=== PATIENT | female | born 1950 | race Caucasian/White ===

== ENCOUNTER 2018-03-05 05:59 | Day surgery (SDC) | payer MEDICARE, OTHER ==
[~2018-03-05 05:59] MED LIST: AMIT25TA20 PO; BUPR150T66 PO; CYCL-36 PO; DILTCD240 PO; ESTR1TAB PO; FIORTAB4 PO; HYDR-2768 PO; LORT5TAB PO; ORPH100T PO; PRED5PAK PO; XANA1TAB6 PO
[2018-03-05] MEDS ORDERED: MUPIROCIN 2% OINT 1 APPLIC/GM SYR NASAL SCH (07:00)
[2018-03-05] MEDS ORDERED: POVIDONE IODINE 5% (ANTISEPSIS KIT) 4 APPLICATIONS EACH NARE SCH (07:00)
[2018-03-05] MEDS ORDERED: NS 1000 ML IV SCH (07:00)
[2018-03-05] MEDS ORDERED: CHLORHEXIDINE GLUCONATE 2 % 1 PACK (2 CLOTHS) TOPICAL SCH (07:00)
--- NOTE | 2018-03-05 08:46 | MA ---
cc: Piyush Chan MD, Beth A MD DATE: 03/05/2018 INDICATIONS: Cerebrovascular accident. PROCEDURE PERFORMED: Loop recorder insertion. DESCRIPTION OF PROCEDURE: The patient was brought to DOC Unit in the postoperative state. After informed consent was obtained, a Power[employer] LINQ loop recorder was inserted subcutaneously in the left chest. The patient tolerated the procedure well without any apparent complication. Tachybrady pause and atrial fibrillation detection was enabled. The initial R-wave was 0.64 millivolts. The serial number was [id number]. Piyush Chan MD GABY/MERVAT , 08:36 AM , 08:44 AM
[2018-03-05] MEDS ORDERED: ceFAZolin 2 GM/DEX PREMIX 50 ML IV SCH (09:00)
[2018-03-05] MEDS ORDERED: ALPR.5 PO (09:04)
[2018-03-05] MEDS ORDERED: SPIR25TA PO (09:04)
[2018-03-05] MEDS ORDERED: HYDR-3516 PO (09:04)
[2018-03-05] MEDS ORDERED: CARD240C6 PO (09:04)
[2018-03-05] MEDS ORDERED: ESTR1TAB PO (09:04)
[2018-03-05] MEDS ORDERED: AMIT25TA9 PO (09:04)
[2018-03-05] MEDS ORDERED: BUPR75TA PO (09:04)
[2018-03-05] MEDS ORDERED: TIZA4CAP3 PO (09:04)
[2018-03-05] MEDS ORDERED: RANI150T PO (09:04)
[2018-03-05] MEDS ORDERED: VITA250C3 CHEW (09:04)
[2018-03-05] MEDS ORDERED: IMIT50TA PO (09:04)
[2018-03-05] MEDS ORDERED: CALC1TAB12 PO (09:04)
[2018-03-05] MEDS ORDERED: VOLT1GEL16 TOPICAL (09:04)
[2018-03-05] MEDS ORDERED: ASPI-516 CHEW (09:04)
[2018-03-05] MEDS ORDERED: ERGO2000 PO (09:04)
== END 2018-03-05 09:35 | disposition home or self-care (01) ==
LOC: HDOC 05:59 → HDIC 06:00 → HDOC 09:35
PROVIDERS: ATTEND Nuclear Medicine Nuclear Cardiology
DX: I63.9 Cerebral infarction, unspecified (principal)
CPT/HCPCS: 33282; C1764; J0690; J7030

== ENCOUNTER 2018-06-08 11:45 | Observation (INO) ==
[2018-06-08] MEDS ORDERED: Sod Chloride 0.9% Inj 1,000 ML IV.CONT SCH (13:00)
--- NOTE | 2018-06-08 13:07 | ED ---
HPI General Chief complaint: GI Bleed Stated complaint: GI bleed taking meds Time Seen by Provider: 06/08/18 12:43 Source: patient Mode of arrival: ambulatory Limitations: no limitations History of Present Illness HPI Narrative: 68 years old female complains black tarry stool. Patient has history of atrial fibrillation and TIA. Patient was seen by Dr. Flores, local salon customer experience specialist and put on Eliquis 5 days ago. Patient started noticed black tarry stool 2 days after that. Patient had Hemoccult study at local laboratory was positive for blood. Patient stopped taking Eliquis yesterday. Patient states that she still has persistent black tarry stool. Patient states that she has mild cramping pain left lower quadrant of the abdomen. Patient denies any pain radiation. Patient has history of GI bleeding in the past. Patient states that she has nausea and dizziness since yesterday. Patient also complained of aching right flank pain since yesterday. Patient has history of chronic kidney disease stage III. Patient also has history hypertension, hyperlipidemia. Patient is a non-smoker. Patient denies any dysuria frequency. Patient denies any vaginal discharge or bleeding. MD complaint: melena Onset (ago): day(s) Pain Consistency: intermittent Severity: mild Relieving factors: none Exacerbating factors: none Context: history of GI bleed and anticoagulant use Associated symptoms: abdominal pain, nausea and weakness Treatments Prior to Arrival: none Related Data Home Medications Medication Instructions Recorded Confirmed alprazolam [Xanax] 0.5 mg PO BID PRN 06/08/18 06/08/18 amitriptyline 25 mg PO DAILY 06/08/18 06/08/18 bupropion HCl 75 mg PO BID 06/08/18 06/08/18 diltiazem HCl 240 mg PO DAILY 06/08/18 06/08/18 estradiol 1 tab PO DAILY 06/08/18 06/08/18 hydrocodone-acetaminophen 1 tab PO Q8HR PRN 06/08/18 06/08/18 ranitidine HCl [Zantac] 150 mg PO DAILY 06/08/18 06/08/18 spironolactone 25 mg PO DAILY 06/08/18 06/08/18 sumatriptan succinate [Imitrex] 50 mg PO Q2-4H PRN 06/08/18 06/08/18 tizanidine 4 mg PO HS 06/08/18 06/08/18 Allergies Allergy/AdvReac Type Severity Reaction Status Date / Time azathioprine Allergy Severe Gastrointestinal Verified 06/08/18 12:07 Upset ceftriaxone Allergy Severe RASH/HEADAC Verified 06/08/18 12:07 HE/NAUSEA Gadolinium-Containing Allergy Severe Gastrointestinal Verified 06/08/18 12:07 Contrast Medi Upset hydroxychloroquine Allergy Severe Weakness Verified 06/08/18 12:07 methotrexate Allergy Severe Gastrointestinal Verified 06/08/18 12:07 Upset Latex, Natural Rubber Allergy Intermediate Itching Verified 06/08/18 12:07 Sulfa (Sulfonamide Allergy Intermediate Nausea/Vomi Verified 06/08/18 12:07 Antibiotics) ting Review of Systems Except as stated in HPI: all other systems reviewed are negative [facility] Medical History Medical History Atrial fibrillation (Acute) Chronic kidney disease, stage 3 (Acute) Hx of hysterectomy (Acute) Hx-TIA (transient ischemic attack) (Acute) Hypertension (Acute) Lupus (Acute) Family History Family History Mother History of diabetes mellitus History of hypertension Father History of aneurysm History of hypertension History of heart disease Social History Social History Substance History: No History of Abuse Second Hand Smoke Exposure: No Smoking Status: Never smoker How Often Do You Have a Drink Containing Alcohol: Never Recent Travel in [place] within the Last 8 Weeks: No Recent Out of Country Travel within the Last 8 Weeks: No Immunization History Tetanus Immunization: <5 Years Tetanus Immunization Year if Known: 2014 Hx Influenza Vaccine This Season: No Exam Narrative Exam Narrative: GENERAL: Well-nourished, well-developed patient. SKIN: Focused skin assessment warm/dry. HEAD: Normocephalic. EYES: No scleral icterus. No injection or drainage. NECK: Supple, trachea midline. No JVD or lymphadenopathy. CARDIOVASCULAR: Regular rate and rhythm without murmurs, gallops, or rubs. RESPIRATORY: Breath sounds equal bilaterally. No accessory muscle use. GASTROINTESTINAL: Abdomen soft, nondistended. Rectal exam deferred. Patient had Hemoccult positive at local laboratory. Patient has mild tenderness on palpation left lower quadrant of the abdomen. No rebound tenderness. No mass. MUSCULOSKELETAL: No cyanosis, or edema. BACK: Nontender without obvious deformity. No CVA tenderness. Neurologic exam normal. Course Hospital Course: Patient signed out to me, Dr. Cagle, by Dr. Salazar. Labs show no acute abnormalities, Hgb is 11.2. CT abd/pelvis shows no acute abnormalities. CT head shows no acute abnormalities. Initial Documented Vital Signs Temperature 98.4 F 06/08/18 11:58 Pulse Rate 112 H 06/08/18 11:58 Respiratory Rate 18 06/08/18 11:58 Blood Pressure 130/76 06/08/18 11:58 Pulse Oximetry 98 06/08/18 11:58 Last Documented Vital Signs Temperature 98.4 F 06/08/18 11:58 Pulse Rate 82 06/08/18 17:25 Respiratory Rate 16 06/08/18 17:25 Blood Pressure 125/85 06/08/18 17:25 Pulse Oximetry 96 06/08/18 17:56 Medical Decision Making MDM Narrative Medical decision making narrative: 68 years old female with black tarry stool. Patient was started on Eliquis for a history atrial fibrillation and TIA last week and stopped taking it 2 days ago. Patient has persistent black tarry stool. History GI bleed in the past. Normal saline solution 1 25 cc now. Protonix bolus and drip started. Patient to be placed in observation for further management. Differential Diagnosis Differential Diagnosis: Differential diagnosis including up with GI bleed versus lower GI bleed, diverticulosis, diverticulitis, AV malformation, hemorrhoidal bleed, side effect of anticoagulation. Lab Data Lab results reviewed: Yes I reviewed the patient's lab results. Result diagrams: 06/08/18 13:10 06/08/18 13:10 Lab Results 06/08/18 06/08/18 06/08/18 Range/Units 13:10 13:10 13:10 CBC w Diff Auto diff final WBC 8.8 (4.0-11.0) th/mm3 RBC 3.45 L (4.00-5.30) mil/mm3 Hgb 11.2 L (11.6-15.3) gm/dL Hct 31.6 L (35.0-46.0) % MCV 91.7 (80.0-100.0) fL MCH 32.4 (27.0-34.0) pg MCHC 35.4 (32.0-36.0) % RDW 14.2 (11.6-17.2) % Plt Count 393 (150-450) th/mm3 MPV 8.9 (7.0-11.0) fL Neut % (Auto) 68.2 (16.0-70.0) % Lymph % (Auto) 24.4 (9.0-44.0) % [place] % (Auto) 5.7 (0.0-8.0) % Eos % (Auto) 1.0 (0.0-4.0) % Baso % (Auto) 0.7 (0.0-2.0) % Neut # (Auto) 6.0 (1.8-7.7) th/mm3 Lymph # (Auto) 2.1 (1.0-4.8) th/mm3 [place] # (Auto) 0.5 (0.0-0.9) th/mm3 Eos # (Auto) 0.1 (0.0-0.4) th/mm3 Baso # (Auto) 0.1 (0.0-0.2) th/mm3 WBC Differential . Differential Comment . PT 9.8 (9.8-11.6) sec INR 1.0 Ratio APTT 24.3 (24.3-30.1) sec Sodium 138 (136-145) meq/L Potassium 4.6 (3.5-5.1) meq/L Chloride 108 H (98-107) meq/L Carbon Dioxide 22.9 (21.0-32.0) meq/L Anion Gap 7 (5-15) meq/L BUN 29 H (7-18) mg/dL Creatinine 1.80 H (0.50-1.00) mg/dL Estimated GFR 28 L (>89) mL/min Random Glucose 101 (74-106) mg/dL Calcium 9.0 (8.5-10.1) mg/dL Total Bilirubin 0.4 (0.2-1.0) mg/dL AST 12 L (15-37) U/L ALT 14 (10-53) U/L Alkaline Phosphatase 112 (45-117) U/L Total Protein 7.5 (6.4-8.2) g/dL Albumin 3.6 (3.4-5.0) g/dL Lipase 157 (73-393) U/L Ur Collection Type Urine Color (Yellw/Straw) Urine Clarity (Clear) Urine pH (5.0-8.5) Ur Specific [place] (1.002-1.035) Urine Protein (Neg-Trace) mg/dL Urine Glucose (UA) (Negative) mg/dL Urine Ketones (Negative) mg/dL Urine Occult Blood (Negative) Urine Nitrate (Negative) Urine Bilirubin (Negative) Urine Urobilinogen (Less than 2) mg/dL Ur Leukocyte Esterase (Negative) Urine WBC (0-5) /hpf Ur Squamous Epith Cells (0-5) /hpf Urine Bacteria (None) /hpf Micro UA Comment Urine Culture Comments Blood Type Blood Type Recheck Antibody Screen 06/08/18 06/08/18 Range/Units 13:10 13:30 CBC w Diff WBC (4.0-11.0) th/mm3 RBC (4.00-5.30) mil/mm3 Hgb (11.6-15.3) gm/dL Hct (35.0-46.0) % MCV (80.0-100.0) fL MCH (27.0-34.0) pg MCHC (32.0-36.0) % RDW (11.6-17.2) % Plt Count (150-450) th/mm3 MPV (7.0-11.0) fL Neut % (Auto) (16.0-70.0) % Lymph % (Auto) (9.0-44.0) % [place] % (Auto) (0.0-8.0) % Eos % (Auto) (0.0-4.0) % Baso % (Auto) (0.0-2.0) % Neut # (Auto) (1.8-7.7) th/mm3 Lymph # (Auto) (1.0-4.8) th/mm3 [place] # (Auto) (0.0-0.9) th/mm3 Eos # (Auto) (0.0-0.4) th/mm3 Baso # (Auto) (0.0-0.2) th/mm3 WBC Differential Differential Comment PT (9.8-11.6) sec INR Ratio APTT (24.3-30.1) sec Sodium (136-145) meq/L Potassium (3.5-5.1) meq/L Chloride (98-107) meq/L Carbon Dioxide (21.0-32.0) meq/L Anion Gap (5-15) meq/L BUN (7-18) mg/dL Creatinine (0.50-1.00) mg/dL Estimated GFR (>89) mL/min Random Glucose (74-106) mg/dL Calcium (8.5-10.1) mg/dL Total Bilirubin (0.2-1.0) mg/dL AST (15-37) U/L ALT (10-53) U/L Alkaline Phosphatase (45-117) U/L Total Protein (6.4-8.2) g/dL Albumin (3.4-5.0) g/dL Lipase (73-393) U/L Ur Collection Type Clean catch Urine Color Yellow (Yellw/Straw) Urine Clarity Slightly cloudy (Clear) Urine pH 5.5 (5.0-8.5) Ur Specific [place] 1.025 (1.002-1.035) Urine Protein Negative (Neg-Trace) mg/dL Urine Glucose (UA) Negative (Negative) mg/dL Urine Ketones Trace H (Negative) mg/dL Urine Occult Blood Negative (Negative) Urine Nitrate Negative (Negative) Urine Bilirubin Negative (Negative) Urine Urobilinogen 0.2 (Less than 2) mg/dL Ur Leukocyte Esterase Negative (Negative) Urine WBC 0-5 (0-5) /hpf Ur Squamous Epith Cells 6-10 H (0-5) /hpf Urine Bacteria Many H (None) /hpf Micro UA Comment Culture indicated Urine Culture Comments Culture indicated Blood Type O Positive Blood Type Recheck Required Antibody Screen Negative Imaging Data Radiologist's impression: Abdomen/Pelvis CT 06/08/18 12:53 CONCLUSION: 1. Nonspecific bowel gas pattern gaseous dilatation of portions of the colon which may represent an ileus. 2. Status post cholecystectomy. Head CT 06/08/18 13:22 CONCLUSION: 1. No acute hemorrhage or mass effect. 2. 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 Discharge Plan Discharge Disposition Patient Disposition: 30 Still Patient Discharge Condition Condition: Stable Discharge Details Diagnosis: Lower gastrointestinal hemorrhage Physicians Team ED Provider: Colt Salazar Primary Care Provider: Jase Dhillon Attending Provider: Corona Foreman Other Providers: Danny Rosado Discharge Interventions Interventions: ED Discharge Assessment Last Done: 06/08/18 17:27 Vital Signs Last Done: 06/08/18 16:03 Status ED Status: Left Department Discharge Information Discharge Date/Time: 06/08/18 17:45
[2018-06-08 13:20] LABS: Baso # (Auto) 0.1 th/mm3 (0.0-0.2); Baso % (Auto) 0.7 % (0.0-2.0); Eos # (Auto) 0.1 th/mm3 (0.0-0.4); Hematocrit 31.6 % (35.0-46.0); Hemoglobin 11.2 gm/dL (11.6-15.3); Lymph # (Auto) 2.1 th/mm3 (1.0-4.8); Lymph % (Auto) 24.4 % (9.0-44.0); Mean Corpuscular HGB Conc 35.4 % (32.0-36.0); Mean Corpuscular Hemoglobin 32.4 pg (27.0-34.0); Mean Corpuscular Volume 91.7 fL (80.0-100.0); Mean Platelet Volume 8.9 fL (7.0-11.0); Mono # (Auto) 0.5 th/mm3 (0.0-0.9); Mono % (Auto) 5.7 % (0.0-8.0); Neut % (Auto) 68.2 % (16.0-70.0); Platelet Count 393 th/mm3 (150-450); Red Blood Count 3.45 mil/mm3 (4.00-5.30); Red Cell Distribution Width 14.2 % (11.6-17.2); White Blood Count 8.8 th/mm3 (4.0-11.0)
[2018-06-08 13:25] LABS: Chloride 108 meq/L (98-107); Potassium 4.6 meq/L (3.5-5.1); Sodium 138 meq/L (136-145)
[2018-06-08 13:30] LABS: Albumin 3.6 g/dL (3.4-5.0); Anion Gap 7 meq/L (5-15); Blood Urea Nitrogen 29 mg/dL (7-18); Carbon Dioxide 22.9 meq/L (21.0-32.0); Glucose,Random 101 mg/dL (74-106); Lipase 157 U/L (73-393)
[2018-06-08 13:33] LABS: Alanine Aminotransferase 14 U/L (10-53); Aspartate Aminotransferase 12 U/L (15-37); Glomerular Filtration Rate 28 mL/min (>89)
[2018-06-08 13:34] LABS: Total Protein 7.5 g/dL (6.4-8.2)
[2018-06-08 13:36] LABS: Alkaline Phosphatase 112 U/L (45-117)
[2018-06-08 13:59] LABS: Activated Partial Thrombo Time 24.3 sec (24.3-30.1); Prothrombin Time 9.8 sec (9.8-11.6)
[2018-06-08 14:06] LABS: Bilirubin,Urine Negative (Negative); Clarity,Urine Slightly Cloudy (Clear); Color,Urine Yellow (Yellw/Straw); Glucose,Urine (UA) Negative (Negative); Leukocyte Esterase,Urine Negative (Negative); Nitrite,Urine Negative (Negative); PH,Urine 5.5 (5.0-8.5); Specific Gravity,Urine 1.025 (1.002-1.035); Urobilinogen,Urine 0.2 mg/dL (Less than 2)
[2018-06-08] MEDS: Pantoprazole Inj 80 MG in Sodium Chlor 0.9% Inj 100 ML IV.CONT SCH ×2 (14:10→22:21)
[2018-06-08 14:29] LABS: WBC,Urine 0-5 /hpf (0-5)
[2018-06-08 14:30] LABS: Bacteria,Urine Many /hpf
--- NOTE | 2018-06-08 15:27 | CT ---
EXAM DATE: 06/08/2018 3:24 PM EDT AGE/SEX: 68 years / Female INDICATIONS: Right sided headache. CLINICAL DATA: This is the patient's initial encounter. Patient reports that signs and symptoms have been present for 2 days and indicates a pain score of 5/10. MEDICAL/SURGICAL HISTORY: Transient ischemic attack. Appendectomy. Cholecystectomy. Hysterectomy. Hernia repair. RADIATION DOSE: 60.22 CTDI (mGy) COMPARISON: No prior exams available for comparison. TECHNIQUE: CT of the head without contrast. Using automated exposure control and adjustment of the mA and/or kV according to patient size, radiation dose was kept as low as reasonably achievable to ob tain optimal diagnostic quality images. DICOM format image data is available electronically for revi ew and comparison. FINDINGS: Cerebrum: The ventricles are normal for age. No evidence of midline shift, mass lesion, hemorrhage or acute infarction. There is a small old lacunar infarcts in the right basal ganglia. No extraaxial fluid collections are seen. Posterior Fossa: The cerebellum and brainstem are intact. The 4th ventricle is midline. The cerebe llopontine angle is unremarkable. Extracranial: The visualized portion of the orbits is intact. Skull: The calvaria is intact. No evidence of skull fracture. CONCLUSION: 1. No acute hemorrhage or mass effect. 2. 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 Electronically signed by: Juan Manuel Sloan MD 06/08/2018 3:25 PM EDT
--- NOTE | 2018-06-08 15:30 | CT ---
EXAM DATE: 06/08/2018 3:24 PM EDT AGE/SEX: 68 years / Female INDICATIONS: Blood in stool. CLINICAL DATA: This is the patient's initial encounter. Patient reports that signs and symptoms have been present for 1 week and indicates a pain score of 0/10. MEDICAL/SURGICAL HISTORY: Transient ischemic attack. Appendectomy. Cholecystectomy. Hysterect yamel. Hernia repair. RADIATION DOSE: 20.61 CTDI (mGy) COMPARISON: No prior exams available for comparison. TECHNIQUE: Multiple contiguous axial images were obtained through the abdomen. Images were obtained using multiple row detector helical technique. Using automated exposure control and adjustment of the mA and/or kV according to patient size, radiation dose was kept as low as reasonably achievable to o btain optimal diagnostic quality images. DICOM format image data is available electronically for rev iew and comparison. FINDINGS: Lower Lungs: The visualized lower lungs are clear. Liver: The liver has a homogeneous density without space-occupying lesion. There is no dilation of th e biliary tree. Status post cholecystectomy. Spleen: Homogeneous density without enlargement. Pancreas: Unremarkable without mass or calcification. Kidneys: Normal in size and shape. No evidence of mass or hydronephrosis. Adrenal Glands: Unremarkable. Aorta: The aorta and proximal iliac vessels are grossly unremarkable without aneurysmal dilation. Bowel/Mesentery: No oral contrast was given limiting the sensitivity of the exam. There is mild gaseo us dilatation of portions of the colon. Small bowel is nondilated. There is no inflammatory change or free air. Abdominal Wall: Intact. Retroperitoneum: No evidence of adenopathy in the retrocrural, para-aortic, or deep pelvic regions. Bladder: Contours are smooth. Reproductive Organs: No abnormal masses or calcifications seen. Inguinal: The inguinal region is unremarkable without evidence of adenopathy. Bony Structures: Osteopenia, degenerative change and mild scoliosis are present. CONCLUSION: 1. Nonspecific bowel gas pattern gaseous dilatation of portions of the colon which may represent an ileus. 2. Status post cholecystectomy. Electronically signed by: Juan Manuel Sloan MD 06/08/2018 3:29 PM EDT
[2018-06-08] MEDS ORDERED: ALPRAZolam 0.5 MG Tablet PO PRN (17:48)
--- NOTE | 2018-06-08 17:50 | P.HP ---
History of Present Illness Primary Care Physician: Jase Dhillon DO Chief Complaint: Heme positive stool History of Present Illness: 68-year-old female with known history of hypertension, lupus, atrial fibrillation, TIA, chronic kidney disease who presented the hospital at the request of her customer care representative because of heme positive stool. Patient recently was diagnosed with atrial fibrillation by loop recorder. She was started on Eliquis for anticoagulation, however she started having darker stools after she started taking the Eliquis. Patient stopped the Eliquis yesterday and she continued to have dark colored stools. She had Hemoccult performed in outpatient setting and it was positive. Her customer care representative Dr. Flores recommend the patient come to the hospital to get evaluation performed and endoscopies. Patient is at significant high risk for recurrent TIAs, atrial fibrillation. Needs to be on anticoagulation. Patient will require urgent endoscopies in order to restart anticoagulation. Patient denies any symptoms. She is without any weakness, shortness of breath, dyspnea. She indicates that she had a colonoscopy done in 2008 which was normal in [place]. Patient denies any NSAID use. - Diagnosis (1) Heme positive stool Review of Systems All other systems reviewed negative except as stated in HPI Gastrointestinal: Reports black, tarry stools PMFSH - History History Provided By: Patient - Medical History Medical History: Medical History (Last Updated 06/08/18 @ 17:45 by DENNIS [place]) Atrial fibrillation Chronic kidney disease, stage 3 Hx of hysterectomy Hx-TIA (transient ischemic attack) Hypertension Lupus - Surgical History Surgical History: Surgical History (Last Reviewed 06/08/18 @ 17:45 by DENNIS [place]) History of arthroplasty of left shoulder History of bilateral knee replacement Hx of appendectomy Hx of cholecystectomy Hx of hernia repair - Family History Family History: Family History (Last Updated 06/08/18 @ 17:46 by DENNIS [place]) Mother History of diabetes mellitus History of hypertension Father History of aneurysm History of hypertension History of heart disease - Tobacco History Second Hand Smoke Exposure: No Smoking Status: Never smoker - Alcohol History How Often Do You Have a Drink Containing Alcohol: Never - Substance Use History Substance History: No History of Abuse - Travel History Recent Travel in the [place] Within the Last 8 Weeks: No Recent Travel Out of the Country Within the Last 8 Weeks: No - Immunization History Tetanus Immunization: <5 Years Tetanus Immunization Year if Known: 2014 Hx Influenza Vaccine This Season: No Medications and Allergies Active Medications: Active Medications Pantoprazole Sodium 80 mg/ (Sodium Chloride) 100 mls @ 10 mls/hr IV.CONT CONT MICHELLE Last Admin: 06/08/18 14:10 Dose: 10 mls/hr Sodium Chloride (Ns Inj) 1,000 mls @ 100 mls/hr IV.CONT .Q10H MICHELLE Polyethylene Glycol/Electrolytes (Colyte Liq) 4,000 ml PO ONCE ONE Stop: 06/08/18 17:39 Sodium Chloride (Ns Flush) 2 ml IV.FLUSH BID MICHELLE Sodium Chloride (Ns Flush) 2 ml IV.FLUSH PRN PRN PRN Reason: FLUSH AFTER USING IV ACCESS Allergies Allergy/AdvReac Type Severity Reaction Status Date / Time azathioprine Allergy Severe Gastrointestinal Verified 06/08/18 12:07 Upset ceftriaxone Allergy Severe RASH/HEADAC Verified 06/08/18 12:07 HE/NAUSEA Gadolinium-Containing Allergy Severe Gastrointestinal Verified 06/08/18 12:07 Contrast Medi Upset hydroxychloroquine Allergy Severe Weakness Verified 06/08/18 12:07 methotrexate Allergy Severe Gastrointestinal Verified 06/08/18 12:07 Upset Latex, Natural Rubber Allergy Intermediate Itching Verified 06/08/18 12:07 Sulfa (Sulfonamide Allergy Intermediate Nausea/Vomi Verified 06/08/18 12:07 Antibiotics) ting Home Medications Medication Instructions Recorded Confirmed Type alprazolam [Xanax] 0.5 mg PO BID PRN 06/08/18 06/08/18 History amitriptyline 25 mg PO DAILY 06/08/18 06/08/18 History bupropion HCl 75 mg PO BID 06/08/18 06/08/18 History diltiazem HCl 240 mg PO DAILY 06/08/18 06/08/18 History estradiol 1 tab PO DAILY 06/08/18 06/08/18 History hydrocodone-acetaminophen 1 tab PO Q8HR PRN 06/08/18 06/08/18 History ranitidine HCl [Zantac] 150 mg PO DAILY 06/08/18 06/08/18 History spironolactone 25 mg PO DAILY 06/08/18 06/08/18 History sumatriptan succinate [Imitrex] 50 mg PO Q2-4H PRN 06/08/18 06/08/18 History tizanidine 4 mg PO HS 06/08/18 06/08/18 History Exam Vital signs: Vital Signs 06/08/18 11:58 06/08/18 13:15 06/08/18 13:36 Temperature 98.4 F Pulse Rate 112 H 113 H Respiratory Rate 18 Blood Pressure 130/76 Pulse Oximetry 98 96 06/08/18 16:03 06/08/18 17:25 Temperature Pulse Rate 80 82 Respiratory Rate 16 16 Blood Pressure 152/99 H 125/85 Pulse Oximetry 95 96 Intake & Output 06/07/18 06/08/18 06/08/18 18:59 06:59 18:59 Weight 84.5 kg Narrative: GENERAL: Well-developed, well-nourished, in no acute distress. alert and orientated HEENT: Head is normocephalic without any lesions or masses noted. Facial features are symmetric. Eyes: Pupils equal round reactive to light. Extraocular muscles are intact. Conjunctivae were clear. Oropharyngeal: Pharynx without any erythema edema. Tongue is midline without deviation. Buccal mucosa is moist without any masses or lesions NECK: Supple without any masses. Trachea midline no deviation. No JVD, no bruits are appreciated CARDIAC: Regular rhythm, regular rate. S1/S2 are heard. No murmurs gallops or rubs. LUNGS: Clear to auscultation bilaterally. No wheeze, rhonchi or rales. No use of accessory muscles on inspiration or expiration. ABDOMEN: Soft, nontender. Nondistended. Bowel sounds heard in all 4 quadrants. No organomegaly or masses. Negative rebound, negative guarding EXTREMITIES: No edema, pulses are equal bilaterally. No cyanosis or clubbing NEUROLOGY: Mood and affect appear appropriate. Cranial nerves II through XII grossly intact. Muscle strength 5/5 in upper and lower extremities bilaterally. Deep tendon reflexes are 2+ in upper and lower extremities bilaterally. Results - Labs CBC & Chem 7: 06/08/18 13:10 06/08/18 13:10 Labs: Laboratory Results - last 24 hr 06/08/18 06/08/18 06/08/18 13:10 13:10 13:10 CBC w Diff Auto diff final WBC 8.8 RBC 3.45 L Hgb 11.2 L Hct 31.6 L MCV 91.7 MCH 32.4 MCHC 35.4 RDW 14.2 Plt Count 393 MPV 8.9 Neut % (Auto) 68.2 Lymph % (Auto) 24.4 [place] % (Auto) 5.7 Eos % (Auto) 1.0 Baso % (Auto) 0.7 Neut # (Auto) 6.0 Lymph # (Auto) 2.1 [place] # (Auto) 0.5 Eos # (Auto) 0.1 Baso # (Auto) 0.1 WBC Differential . Differential Comment . PT 9.8 INR 1.0 APTT 24.3 Sodium 138 Potassium 4.6 Chloride 108 H Carbon Dioxide 22.9 Anion Gap 7 BUN 29 H Creatinine 1.80 H Estimated GFR 28 L Random Glucose 101 Calcium 9.0 Total Bilirubin 0.4 AST 12 L ALT 14 Alkaline Phosphatase 112 Total Protein 7.5 Albumin 3.6 Lipase 157 Ur Collection Type Urine Color Urine Clarity Urine pH Ur Specific [place] Urine Protein Urine Glucose (UA) Urine Ketones Urine Occult Blood Urine Nitrate Urine Bilirubin Urine Urobilinogen Ur Leukocyte Esterase Urine WBC Ur Squamous Epith Cells Urine Bacteria Micro UA Comment Urine Culture Comments Blood Type Blood Type Recheck Antibody Screen 06/08/18 06/08/18 13:10 13:30 CBC w Diff WBC RBC Hgb Hct MCV MCH MCHC RDW Plt Count MPV Neut % (Auto) Lymph % (Auto) [place] % (Auto) Eos % (Auto) Baso % (Auto) Neut # (Auto) Lymph # (Auto) [place] # (Auto) Eos # (Auto) Baso # (Auto) WBC Differential Differential Comment PT INR APTT Sodium Potassium Chloride Carbon Dioxide Anion Gap BUN Creatinine Estimated GFR Random Glucose Calcium Total Bilirubin AST ALT Alkaline Phosphatase Total Protein Albumin Lipase Ur Collection Type Clean catch Urine Color Yellow Urine Clarity Slightly cloudy Urine pH 5.5 Ur Specific [place] 1.025 Urine Protein Negative Urine Glucose (UA) Negative Urine Ketones Trace H Urine Occult Blood Negative Urine Nitrate Negative Urine Bilirubin Negative Urine Urobilinogen 0.2 Ur Leukocyte Esterase Negative Urine WBC 0-5 Ur Squamous Epith Cells 6-10 H Urine Bacteria Many H Micro UA Comment Culture indicated Urine Culture Comments Culture indicated Blood Type O Positive Blood Type Recheck Required Antibody Screen Negative - Imaging Impressions Abdomen/Pelvis CT 06/08/18 12:53 CONCLUSION: 1. Nonspecific bowel gas pattern gaseous dilatation of portions of the colon which may represent an ileus. 2. Status post cholecystectomy. Head CT 06/08/18 13:22 CONCLUSION: 1. No acute hemorrhage or mass effect. 2. 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 Caprini VTE Risk Assessment Caprini VTE Risk Assessment: Moderate/High Risk (score >= 2) Caprini Risk Assessment Model: Point Value = 1 Point Value = 2 Point Value = 3 Point Value = 5 Age 41-60 Minor surgery BMI > 25 kg/m2 Swollen legs Varicose veins or History of unexplained or recurrent spontaneous Oral contraceptives or hormone replacement Sepsis (< 1 month) Serious lung disease, including pneumonia (< 1 month) Abnormal pulmonary function Acute myocardial infarction Congestive heart failure (< 1 month) History of inflammatory bowel disease Medical patient at bed rest Age 61-74 Arthroscopic surgery Major open surgery (> 45 min) Laparoscopic surgery (> 45 min) Malignancy Confined to bed (> 72 hours) Immobilizing plaster cast Central venous access Age >= 75 History of VTE Family history of VTE Factor V Leiden Prothrombin [id number] Lupus anticoagulant Anticardiolipin antibodies Elevated serum homocysteine Heparin-induced thrombocytopenia Other congenital or acquired thrombophilia Stroke (< 1 month) Elective arthroplasty Hip, pelvis, or leg fracture Acute spinal cord injury (< 1 month) Prophylaxis Regimen: Total Risk Factor Score Risk Level Prophylaxis Regimen 0-1 Low Early ambulation 2 Moderate Order ONE of the following: *Sequential Compression Device (SCD) *Heparin 5000 units SQ BID 3-4 Higher Order ONE of the following medications: *Heparin 5000 units SQ TID *Enoxaparin/Lovenox 40 mg SQ daily (WT < 150 kg, CrCl > 30 mL/min) *Enoxaparin/Lovenox 30 mg SQ daily (WT < 150 kg, CrCl > 10-29 mL/min) *Enoxaparin/Lovenox 30 mg SQ BID (WT < 150 kg, CrCl > 30 mL/min) AND/OR *Sequential Compression Device (SCD) 5 or more Highest Order ONE of the following medications: *Heparin 5000 units SQ TID (Preferred with Epidurals) *Enoxaparin/Lovenox 40 mg SQ daily (WT < 150 kg, CrCl > 30 mL/min) *Enoxaparin/Lovenox 30 mg SQ daily (WT < 150 kg, CrCl > 10-29 mL/min) *Enoxaparin/Lovenox 30 mg SQ BID (WT < 150 kg, CrCl > 30 mL/min) AND *Sequential Compression Device (SCD) Assessment and Plan - Assessment (1) Heme positive stool Code(s): R19.5 - Other fecal abnormalities Status: Acute - Plan Heme positive stool -Patient needs anticoagulation is a high risk due to age fibrillation, recurrent TIAs. Eliquis was stopped yesterday -GI was consulted for further recommendations, plan was discussed with them -Clear liquid diet at this time, n.p.o. after midnight -Patient was started on Protonix IV in the emergency department -[facility] for colonoscopy prep -Continue monitor hemoglobin, transfuse if hemoglobin below 8.0 Atrial fibrillation, history of TIAs -Patient will require anticoagulation but high risk due to heme positive stool -Await pain endoscopy and GI clearance before starting further anticoagulation -Other home meds will be continued Lupus, anxiety -Home medications have been continued DVT prevention -Sequential compression devices, avoid chemical prophylaxis secondary to heme positive stool.
[2018-06-08] MEDS ORDERED: PEG 3350/E-Lyte Soln 4000 ML Bottle PO ONE (18:00)
[2018-06-08] MEDS: Sod Chloride 0.9% Inj 1,000 ML IV.CONT SCH (18:09)
[2018-06-08 19:17] LABS: Hematocrit 36.3 % (35.0-46.0); Hemoglobin 11.7 gm/dL (11.6-15.3)
--- NOTE | 2018-06-08 19:40 | P.CONGI ---
History of Present Illness Consult date: 06/08/18 Consult reason: Guaiac positive stools, anemia Chief complaint: GI bleed History of Present Illness: Patient was recently diagnosed with atrial fibrillation and was started on Eliquis shortly after starting Eliquis she began to see black stools and then she alerted her primary care physician who sent for guaiac stools and this came back positive and so the patient was advised to come into the emergency room for further evaluation and treatment the patient held her Eliquis yesterday The patient is currently comfortable in bed she denies any NSAID use although she did use aspirin for short period of time prior to starting Eliquis she also reports having had history of GI bleeds back in the 80s with no clear source identified Review of Systems Constitutional: Denies weight loss Eyes: Denies blurry vision Ears, Nose, Mouth, and Throat: Denies difficulty swallowing, Denies hoarseness, Denies sore throat Cardiovascular: Reports irregular heart rhythm, Denies chest pain, Denies lightheadedness, Denies shortness of breath Respiratory: Denies shortness of breath Gastrointestinal: Reports black, tarry stools, Denies abdominal pain, Denies difficulty swallowing Neurologic: Denies abnormal hearing, Denies dizziness, Denies fainting Psychiatric: Denies change in appetite Endocrine: Denies excessive sweating PMFSH - History History Provided By: Patient - Medical History Medical History: Medical History (Last Updated 06/08/18 @ 17:45 by DENNIS [place]) Atrial fibrillation Chronic kidney disease, stage 3 Hx of hysterectomy Hx-TIA (transient ischemic attack) Hypertension Lupus - Surgical History Surgical History: Surgical History (Last Reviewed 06/08/18 @ 17:45 by DENNIS [place]) History of arthroplasty of left shoulder History of bilateral knee replacement Hx of appendectomy Hx of cholecystectomy Hx of hernia repair - Family History Family History: Family History (Last Updated 06/08/18 @ 17:46 by DENNIS [place]) Mother History of diabetes mellitus History of hypertension Father History of aneurysm History of hypertension History of heart disease - Tobacco History Second Hand Smoke Exposure: No Smoking Status: Never smoker - Alcohol History How Often Do You Have a Drink Containing Alcohol: Never - Substance Use History Substance History: No History of Abuse - Travel History Recent Travel in the [place] Within the Last 8 Weeks: No Recent Travel Out of the Country Within the Last 8 Weeks: No - Immunization History Tetanus Immunization: <5 Years Tetanus Immunization Year if Known: 2014 Hx Influenza Vaccine This Season: No Medications and Allergies Active Medications: Active Medications Hydrocodone Bitart/Acetaminophen (Silver 5/325) 1 tab PO Q8HR PRN PRN Reason: PAIN SCALE 6 TO 10 Alprazolam (Xanax) 0.5 mg PO BID PRN PRN Reason: Anxiety Amitriptyline HCl (Elavil) 25 mg PO DAILY [facility] Bupropion HCl (Wellbutrin) 75 mg PO BID MICHELLE Diltiazem HCl (Cardizem Cd 24hr) 240 mg PO DAILY MICHELLE Pantoprazole Sodium 80 mg/ (Sodium Chloride) 100 mls @ 10 mls/hr IV.CONT CONT MICHELLE Last Admin: 06/08/18 14:10 Dose: 10 mls/hr Sodium Chloride (Ns Inj) 1,000 mls @ 100 mls/hr IV.CONT .Q10H MICHELLE Last Admin: 06/08/18 18:09 Dose: 100 mls/hr Sodium Chloride (Ns Flush) 2 ml IV.FLUSH BID MICHELLE Sodium Chloride (Ns Flush) 2 ml IV.FLUSH PRN PRN PRN Reason: FLUSH AFTER USING IV ACCESS Spironolactone (Aldactone) 25 mg PO DAILY MICHELLE Sumatriptan Succinate (Imitrex) 50 mg PO Q2H PRN PRN Reason: HEADACHE Tizanidine HCl (Zanaflex) 4 mg PO HS [facility] Allergies Allergy/AdvReac Type Severity Reaction Status Date / Time azathioprine Allergy Severe Gastrointestinal Verified 06/08/18 12:07 Upset ceftriaxone Allergy Severe RASH/HEADAC Verified 06/08/18 12:07 HE/NAUSEA Gadolinium-Containing Allergy Severe Gastrointestinal Verified 06/08/18 12:07 Contrast Medi Upset hydroxychloroquine Allergy Severe Weakness Verified 06/08/18 12:07 methotrexate Allergy Severe Gastrointestinal Verified 06/08/18 12:07 Upset Latex, Natural Rubber Allergy Intermediate Itching Verified 06/08/18 12:07 Sulfa (Sulfonamide Allergy Intermediate Nausea/Vomi Verified 06/08/18 12:07 Antibiotics) ting Home Medications Medication Instructions Recorded Confirmed Type alprazolam [Xanax] 0.5 mg PO BID PRN 06/08/18 06/08/18 History amitriptyline 25 mg PO DAILY 06/08/18 06/08/18 History bupropion HCl 75 mg PO BID 06/08/18 06/08/18 History diltiazem HCl 240 mg PO DAILY 06/08/18 06/08/18 History estradiol 1 tab PO DAILY 06/08/18 06/08/18 History hydrocodone-acetaminophen 1 tab PO Q8HR PRN 06/08/18 06/08/18 History ranitidine HCl [Zantac] 150 mg PO DAILY 06/08/18 06/08/18 History spironolactone 25 mg PO DAILY 06/08/18 06/08/18 History sumatriptan succinate [Imitrex] 50 mg PO Q2-4H PRN 06/08/18 06/08/18 History tizanidine 4 mg PO HS 06/08/18 06/08/18 History Exam Vital signs: Vital Signs 06/08/18 11:58 06/08/18 13:15 06/08/18 13:36 Temperature 98.4 F Pulse Rate 112 H 113 H Respiratory Rate 18 Blood Pressure 130/76 Pulse Oximetry 98 96 06/08/18 16:03 06/08/18 17:25 06/08/18 17:50 Temperature Pulse Rate 80 82 Respiratory Rate 16 16 Blood Pressure 152/99 H 125/85 Pulse Oximetry 95 96 96 06/08/18 17:56 06/08/18 18:34 Temperature 96.7 F L Pulse Rate 77 Respiratory Rate 16 Blood Pressure 138/98 H Pulse Oximetry 96 97 Intake & Output 06/08/18 06/08/18 06/09/18 06:59 18:59 06:59 Weight 84.5 kg - Constitutional no acute distress - Routine HEENT Exam Head: Present: normocephalic, atraumatic Eye: Present: EOMI ENT: Present: mucous membranes moist - Routine Neck Exam Present: supple - Routine Chest/Breast/Axilla Exam Chest wall: Absent: tenderness - Routine Respiratory Exam Present: CTA bilaterally - Routine Cardiovascular Exam Present: irregularly irregular - Routine Abdominal Exam Present: soft, normoactive bowel sounds - Routine Extremities Exam Absent: cyanosis, clubbing, edema - Routine Skin Exam Present: dry, warm - Routine Neurological Exam Present: alert, oriented X3 Results - Labs CBC & Chem 7: 06/08/18 13:10 06/08/18 13:10 Labs: Laboratory Results - last 24 hr 06/08/18 06/08/18 06/08/18 13:10 13:10 13:10 CBC w Diff Auto diff final WBC 8.8 RBC 3.45 L Hgb 11.2 L Hct 31.6 L MCV 91.7 MCH 32.4 MCHC 35.4 RDW 14.2 Plt Count 393 MPV 8.9 Neut % (Auto) 68.2 Lymph % (Auto) 24.4 [place] % (Auto) 5.7 Eos % (Auto) 1.0 Baso % (Auto) 0.7 Neut # (Auto) 6.0 Lymph # (Auto) 2.1 [place] # (Auto) 0.5 Eos # (Auto) 0.1 Baso # (Auto) 0.1 WBC Differential . Differential Comment . PT 9.8 INR 1.0 APTT 24.3 Sodium 138 Potassium 4.6 Chloride 108 H Carbon Dioxide 22.9 Anion Gap 7 BUN 29 H Creatinine 1.80 H Estimated GFR 28 L Random Glucose 101 Calcium 9.0 Total Bilirubin 0.4 AST 12 L ALT 14 Alkaline Phosphatase 112 Total Protein 7.5 Albumin 3.6 Lipase 157 Ur Collection Type Urine Color Urine Clarity Urine pH Ur Specific [place] Urine Protein Urine Glucose (UA) Urine Ketones Urine Occult Blood Urine Nitrate Urine Bilirubin Urine Urobilinogen Ur Leukocyte Esterase Urine WBC Ur Squamous Epith Cells Urine Bacteria Micro UA Comment Urine Culture Comments Blood Type Blood Type Recheck Antibody Screen 06/08/18 06/08/18 13:10 13:30 CBC w Diff WBC RBC Hgb Hct MCV MCH MCHC RDW Plt Count MPV Neut % (Auto) Lymph % (Auto) [place] % (Auto) Eos % (Auto) Baso % (Auto) Neut # (Auto) Lymph # (Auto) [place] # (Auto) Eos # (Auto) Baso # (Auto) WBC Differential Differential Comment PT INR APTT Sodium Potassium Chloride Carbon Dioxide Anion Gap BUN Creatinine Estimated GFR Random Glucose Calcium Total Bilirubin AST ALT Alkaline Phosphatase Total Protein Albumin Lipase Ur Collection Type Clean catch Urine Color Yellow Urine Clarity Slightly cloudy Urine pH 5.5 Ur Specific [place] 1.025 Urine Protein Negative Urine Glucose (UA) Negative Urine Ketones Trace H Urine Occult Blood Negative Urine Nitrate Negative Urine Bilirubin Negative Urine Urobilinogen 0.2 Ur Leukocyte Esterase Negative Urine WBC 0-5 Ur Squamous Epith Cells 6-10 H Urine Bacteria Many H Micro UA Comment Culture indicated Urine Culture Comments Culture indicated Blood Type O Positive Blood Type Recheck Required Antibody Screen Negative - Imaging Impressions Abdomen/Pelvis CT 06/08/18 12:53 CONCLUSION: 1. Nonspecific bowel gas pattern gaseous dilatation of portions of the colon which may represent an ileus. 2. Status post cholecystectomy. Head CT 06/08/18 13:22 CONCLUSION: 1. No acute hemorrhage or mass effect. 2. 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 Assessment and Plan - Plan Guaiac positive stools, anemia, melena, atrial fibrillation We will plan on an EGD with colonoscopy tomorrow Agree with current supportive care Monitor labs and transfuse if needed
[2018-06-08] MEDS ORDERED: Amitriptyline 25 MG Tablet PO SCH (21:45)
[2018-06-08] MEDS: buPROPion 75 MG Tablet PO SCH (22:22)
[2018-06-09 01:42] LABS: Hematocrit 32.5 % (35.0-46.0); Hemoglobin 10.5 gm/dL (11.6-15.3)
[2018-06-09 06:12] LABS: Baso # (Auto) 0.1 th/mm3 (0.0-0.2); Baso % (Auto) 0.6 % (0.0-2.0); Eos # (Auto) 0.1 th/mm3 (0.0-0.4); Eos % (Auto) 0.9 % (0.0-4.0); Hematocrit 31.2 % (35.0-46.0); Hemoglobin 10.1 gm/dL (11.6-15.3); Lymph # (Auto) 2.3 th/mm3 (1.0-4.8); Lymph % (Auto) 23.1 % (9.0-44.0); Mean Corpuscular HGB Conc 32.2 % (32.0-36.0); Mean Corpuscular Volume 92.9 fL (80.0-100.0); Mono # (Auto) 0.6 th/mm3 (0.0-0.9); Mono % (Auto) 5.7 % (0.0-8.0); Neut % (Auto) 69.7 % (16.0-70.0); Platelet Count 397 th/mm3 (150-450); Red Blood Count 3.36 mil/mm3 (4.00-5.30); White Blood Count 10.1 th/mm3 (4.0-11.0)
[2018-06-09 06:22] LABS: Chloride 108 meq/L (98-107); Potassium 4.2 meq/L (3.5-5.1); Sodium 141 meq/L (136-145)
[2018-06-09 06:26] LABS: Albumin 3.5 g/dL (3.4-5.0); Anion Gap 9 meq/L (5-15); Calcium 8.6 mg/dL (8.5-10.1); Carbon Dioxide 24.4 meq/L (21.0-32.0); Glucose,Random 93 mg/dL (74-106)
[2018-06-09 06:27] LABS: Blood Urea Nitrogen 24 mg/dL (7-18)
[2018-06-09 06:29] LABS: Alanine Aminotransferase 14 U/L (10-53); Aspartate Aminotransferase 13 U/L (15-37)
[2018-06-09 06:30] LABS: Glomerular Filtration Rate 32 mL/min (>89)
[2018-06-09 06:31] LABS: Total Protein 6.9 g/dL (6.4-8.2)
[2018-06-09 06:33] LABS: Alkaline Phosphatase 108 U/L (45-117)
--- NOTE | 2018-06-09 08:33 | P.PN ---
Subjective Interval history: 68-year-old female seen in follow-up today for heme positive stool. Patient has undergone prep, plans for EGD/colonoscopy today. Discussed with patient tentative treatment plan. Patient denies any new complaints. Patient does not feel as if she cleaned out well enough for colonoscopy. Patient vital signs are stable. Patient remains afebrile. Physical Exam Vital signs: Vital Signs 06/08/18 11:58 06/08/18 13:15 06/08/18 13:36 Temperature 98.4 F Pulse Rate 112 H 113 H Respiratory Rate 18 Blood Pressure 130/76 Pulse Oximetry 98 96 06/08/18 16:03 06/08/18 17:25 06/08/18 17:50 Temperature Pulse Rate 80 82 Respiratory Rate 16 16 Blood Pressure 152/99 H 125/85 Pulse Oximetry 95 96 96 06/08/18 17:56 06/08/18 18:34 06/08/18 20:00 Temperature 96.7 F L 96.9 F L Pulse Rate 77 87 Respiratory Rate 16 16 Blood Pressure 138/98 H 157/95 H Pulse Oximetry 96 97 96 06/09/18 00:00 Temperature 98.3 F Pulse Rate 87 Respiratory Rate 16 Blood Pressure 142/83 H Pulse Oximetry 94 L Intake & Output 06/08/18 06/09/18 06/09/18 18:59 06:59 18:59 Intake Total 400 / 400 Balance 400 / 400 Weight 84.5 kg Intake: IV 100 / 100 Protonix Inj 80 MG In NS Inj 100 / 100 100 ML @ 10 mls/hr IV.CONT CONT MICHELLE Rx#:[id number] Oral 300 / 300 Other: # Voids 3 Date of Last Bowel Movement 06/08/18 # Bowel Movements 3 Narrative: GENERAL: Well-developed, well-nourished, in no acute distress. alert and orientated HEENT: Head is normocephalic without any lesions or masses noted. Facial features are symmetric. Eyes: Extraocular muscles are intact. Conjunctivae were clear. NECK: Supple without any masses. Trachea midline no deviation. No JVD, CARDIAC: Regular rhythm, regular rate. S1/S2 are heard. No murmurs gallops or rubs. LUNGS: Clear to auscultation bilaterally. No wheeze, rhonchi or rales. No use of accessory muscles on inspiration or expiration. ABDOMEN: Soft, nontender. Nondistended. Bowel sounds heard in all 4 quadrants. No organomegaly or masses. Negative rebound, negative guarding EXTREMITIES: No edema, pulses are equal bilaterally. No cyanosis or clubbing NEUROLOGY: Mood and affect appear appropriate. Cranial nerves II through XII grossly intact. Moving all extremities, speech clear Results - Labs CBC & Chem 7: 06/09/18 05:34 06/09/18 05:34 Laboratory Results - last 24 hr 06/08/18 06/08/18 06/08/18 13:10 13:10 13:10 CBC w Diff Auto diff final WBC 8.8 RBC 3.45 L Hgb 11.2 L Hct 31.6 L MCV 91.7 MCH 32.4 MCHC 35.4 RDW 14.2 Plt Count 393 MPV 8.9 Neut % (Auto) 68.2 Lymph % (Auto) 24.4 Posey % (Auto) 5.7 Eos % (Auto) 1.0 Baso % (Auto) 0.7 Neut # (Auto) 6.0 Lymph # (Auto) 2.1 Posey # (Auto) 0.5 Eos # (Auto) 0.1 Baso # (Auto) 0.1 WBC Differential . Differential Comment . PT 9.8 INR 1.0 APTT 24.3 Sodium 138 Potassium 4.6 Chloride 108 H Carbon Dioxide 22.9 Anion Gap 7 BUN 29 H Creatinine 1.80 H Estimated GFR 28 L Random Glucose 101 Calcium 9.0 Total Bilirubin 0.4 AST 12 L ALT 14 Alkaline Phosphatase 112 Total Protein 7.5 Albumin 3.6 Lipase 157 Ur Collection Type Urine Color Urine Clarity Urine pH Ur Specific [place] Urine Protein Urine Glucose (UA) Urine Ketones Urine Occult Blood Urine Nitrate Urine Bilirubin Urine Urobilinogen Ur Leukocyte Esterase Urine WBC Ur Squamous Epith Cells Urine Bacteria Micro UA Comment Urine Culture Comments Blood Type Blood Type Recheck Antibody Screen 06/08/18 06/08/18 06/08/18 13:10 13:30 19:10 CBC w Diff WBC RBC Hgb 11.7 Hct 36.3 MCV MCH MCHC RDW Plt Count MPV Neut % (Auto) Lymph % (Auto) Posey % (Auto) Eos % (Auto) Baso % (Auto) Neut # (Auto) Lymph # (Auto) Posey # (Auto) Eos # (Auto) Baso # (Auto) WBC Differential Differential Comment PT INR APTT Sodium Potassium Chloride Carbon Dioxide Anion Gap BUN Creatinine Estimated GFR Random Glucose Calcium Total Bilirubin AST ALT Alkaline Phosphatase Total Protein Albumin Lipase Ur Collection Type Clean catch Urine Color Yellow Urine Clarity Slightly cloudy Urine pH 5.5 Ur Specific [place] 1.025 Urine Protein Negative Urine Glucose (UA) Negative Urine Ketones Trace H Urine Occult Blood Negative Urine Nitrate Negative Urine Bilirubin Negative Urine Urobilinogen 0.2 Ur Leukocyte Esterase Negative Urine WBC 0-5 Ur Squamous Epith Cells 6-10 H Urine Bacteria Many H Micro UA Comment Culture indicated Urine Culture Comments Culture indicated Blood Type O Positive Blood Type Recheck Required Antibody Screen Negative 06/09/18 06/09/18 06/09/18 01:00 05:34 05:34 CBC w Diff Auto diff final WBC 10.1 RBC 3.36 L Hgb 10.5 L 10.1 L Hct 32.5 L 31.2 L MCV 92.9 MCH 30.0 MCHC 32.2 RDW 13.0 Plt Count 397 MPV 9.0 Neut % (Auto) 69.7 Lymph % (Auto) 23.1 Posey % (Auto) 5.7 Eos % (Auto) 0.9 Baso % (Auto) 0.6 Neut # (Auto) 7.0 Lymph # (Auto) 2.3 Posey # (Auto) 0.6 Eos # (Auto) 0.1 Baso # (Auto) 0.1 WBC Differential . Differential Comment . PT INR APTT Sodium 141 Potassium 4.2 Chloride 108 H Carbon Dioxide 24.4 Anion Gap 9 BUN 24 H Creatinine 1.60 H Estimated GFR 32 L Random Glucose 93 Calcium 8.6 Total Bilirubin 0.8 AST 13 L ALT 14 Alkaline Phosphatase 108 Total Protein 6.9 D Albumin 3.5 Lipase Ur Collection Type Urine Color Urine Clarity Urine pH Ur Specific [place] Urine Protein Urine Glucose (UA) Urine Ketones Urine Occult Blood Urine Nitrate Urine Bilirubin Urine Urobilinogen Ur Leukocyte Esterase Urine WBC Ur Squamous Epith Cells Urine Bacteria Micro UA Comment Urine Culture Comments Blood Type Blood Type Recheck Antibody Screen - Imaging Impressions Abdomen/Pelvis CT 06/08/18 12:53 CONCLUSION: 1. Nonspecific bowel gas pattern gaseous dilatation of portions of the colon which may represent an ileus. 2. Status post cholecystectomy. Head CT 06/08/18 13:22 CONCLUSION: 1. No acute hemorrhage or mass effect. 2. 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 - Procedures 06/09/18: EGD/colonoscopy: 1. There was LA Class A esophagitis noted; biopsy was performed 2. There was gastritis in the gastric antrum; biopsy was performed 3. Normal duodenal mucosa 4. Retroflexed views revealed no abnormalities 1. Moderate diverticulosis was noted in the sigmoid colon 2. 5 x 10cm near circumferential abnormal mucosa was found in the sigmoid colon; The mucosa was congested, edematous and erythematous; multiple biopsies were performed using cold forceps 3. Retroflexed views revealed internal hemorrhoids 4. Retroflexed views revealed medium internal hemorrhoids 5. Revealed external hemorrhoids Assessment and Plan - Assessment (1) Heme positive stool Code(s): R19.5 - Other fecal abnormalities Status: Acute - Plan Heme positive stool -Patient needs anticoagulation is a high risk due to age fibrillation, recurrent TIAs. Eliquis was stopped 2 days ago -GI was consulted for further recommendations, plan was discussed with them -Advance diet. -Continue Protonix IV -EGD and colonoscopy were performed today which I discussed with Dr Perez, who indicated that there was a small area what looks like possible ischemic colitis, biopsies were taken. He indicates that it was a poor prep but currently she can be resumed on anticoagulation considering her history. He states that she would probably need to have follow-up endoscopy done in the next couple of months. Patient should follow-up in his office in the next week. -Continue monitor hemoglobin, transfuse if hemoglobin below 8.0 Atrial fibrillation, history of TIAs -Patient will require anticoagulation but high risk due to heme positive stool -Panendoscopy was done in GI cleared the patient to start anticoagulation -Other home meds will be continued -I discussed with patient's nurse practical Dr. Flores, she requested that a hypercoagulability panel be performed prior to administration of anticoagulation. -Recommending Xarelto for anticoagulation Lupus, anxiety -Home medications have been continued DVT prevention -Sequential compression devices, avoid chemical prophylaxis secondary to heme positive stool. Discharge Planning: Discharge home in stable condition Activity: Ad ale. Diet: Healthy heart diet Medication per medication reconciliation Follow-up with primary medical doctor in 1 week
[2018-06-09] MEDS ORDERED: Spironolactone 25 MG Tablet PO SCH (09:00)
[2018-06-09] MEDS ORDERED: Amitriptyline 25 MG Tablet PO SCH (09:00)
[2018-06-09] MEDS ORDERED: dilTIAZem CD 240 MG Capsule PO SCH (09:00)
[2018-06-09] MEDS: buPROPion 75 MG Tablet PO SCH (09:27)
[2018-06-09] MEDS: Sod Chloride 0.9% Inj 1,000 ML IV.CONT SCH (09:30)
[2018-06-09] MEDS ORDERED: Sodium Chlor 0.9% Inj 500 ML IV.SIG SCH (12:00)
[2018-06-09] MEDS ORDERED: Metoprolol Tartrate 25 MG Tablet PO SCH (12:00)
[2018-06-09] MEDS ORDERED: Chlorhexidine Gluconate 2% 1 Pack (2 Cloths) TOPICAL SCH (12:00)
--- NOTE | 2018-06-09 12:54 | GIPROC ---
[facility] [address] [place] [address], [id number] COLONOSCOPY PROCEDURE REPORT EXAM DATE: 06/09/2018 PATIENT NAME: Cheryl Jay MR #: [id number] BIRTHDATE: 1950 ENDOSCOPIST: Maisha Perez MD ORDER #: [id number] GLOBAL MARKETING MANAGER: Sanam Barbosa STATUS: inpatient INDICATIONS: The patient is a 68 yr old female here for a colonoscopy due to melena and iron deficiency anemia PROCEDURE PERFORMED: Colonoscopy with biopsy MEDICATIONS: None and Per Anesthesia. PREP QUALITY: The Pound Bowel Prep Score was Right colon 1, Mid colon 1, and Left colon 1. Total = 3. ESTIMATED BLOOD LOSS: None CONSENT: The patient understands the risks and benefits of the procedure and understands that these risks include, but are not limited to: sedation, allergic reaction, infection, perforation and/or bleeding. Alternative means of evaluation and treatment include, among others: physical exam, x-rays, and/or surgical intervention. The patient elects to proceed with this endoscopic procedure. medical equipment was checked for proper function. Hand hygiene and appropriate measures for infection prevention was taken. After the risks, benefits and alternatives of the procedure were thoroughly explained, Informed consent was verified, confirmed and timeout was successfully executed by the treatment team. A digital exam revealed external hemorrhoids The Pentax EC-3490Li endoscope was introduced through the anus and advanced to the cecum, which was identified by both the appendix and ileocecal valve. The instrument was then slowly withdrawn as the colon was fully examined. COLON FINDINGS: Moderate diverticulosis was noted in the sigmoid colon. No bleeding was noted from the diverticulosis. A 5 x 10cm near circumferential patch of abnormal mucosa was found in the sigmoid colon. The mucosa was congested, edematous and erythematous. This was likely consistent with ischemic colitis disease. Multiple biopsies were performed using cold forceps. Retroflexed views revealed internal hemorrhoids and Retroflexed views revealed medium internal hemorrhoids The scope was then completely withdrawn from the patient and the procedure terminated. PROCEDURE WITHDRAWAL TIME:10minutes ADVERSE EVENTS: There were no complications. IMPRESSIONS: 1. Moderate diverticulosis was noted in the sigmoid colon 2. 5 x 10cm near circumferential abnormal mucosa was found in the sigmoid colon; The mucosa was congested, edematous and erythematous; multiple biopsies were performed using cold forceps 3. Retroflexed views revealed internal hemorrhoids 4. Retroflexed views revealed medium internal hemorrhoids 5. Revealed external hemorrhoids RECOMMENDATIONS: 1. Await biopsy results. Biopsy results will not be ready for 7-10 days. If you don't hear from us in two weeks, call our office for results. 2. Continue surveillance 3. Benefiber 2 tsp daily 4. Yearly hemoccult 5. No seeds, nuts and popcorn in diet RECALL: Return 1 month Colonoscopy, pending biopsy results Maisha Perez MD eSigned: Maisha Perez MD 06/09/2018 12:54 PM cc: PATIENT NAME: Cheryl Jay MR#: [id number]
--- NOTE | 2018-06-09 12:57 | GIPROC ---
[facility] [address] [place] [address], [id number] EGD PROCEDURE REPORT EXAM DATE: 06/09/2018 PATIENT NAME: Cheryl Jay MR #: [id number] BIRTHDATE: 1950 ATTENDING: Maisha Perez MD ORDER #: [id number] MEDICAL SCIENTIFIC LIAISON: Sanam Barbosa STATUS: inpatient INDICATIONS: The patient is a 68 yr old female here for an EGD due to iron deficiency anemia and acute post hemorrhagic anemia PROCEDURE PERFORMED: EGD w/ biopsy MEDICATIONS: None and Per Anesthesia. TOPICAL ANESTHETIC: CONSENT: The patient understands the risks and benefits of the procedure and understands that these risks include, but are not limited to: sedation, allergic reaction, infection, perforation and/or bleeding. Alternative means of evaluation and treatment include, among others: physical exam, x-rays, and/or surgical intervention. The patient elects to proceed with this endoscopic procedure. medical equipment was checked for proper function. Hand hygiene and appropriate measures for infection prevention was taken. After the risks, benefits and alternatives of the procedure were thoroughly explained, Informed consent was verified, confirmed and timeout was successfully executed by the treatment team. The patient was anesthetized with topical anesthesia and the EC-3490Li (Pedi C) endoscope was introduced through the mouth and advanced to the second portion of the duodenum. Retroflexed views revealed no abnormalities The gastroscope was then slowly withdrawn and removed. ESOPHAGUS: There was LA Class A esophagitis noted. A biopsy was performed using cold forceps. Sample sent for histology. STOMACH: There was moderate gastritis in the gastric antrum. A biopsy was performed using cold forceps. Sample sent for histology. DUODENUM: The duodenal mucosa appeared normal. ADVERSE EVENTS: There were no complications. IMPRESSIONS: 1. There was LA Class A esophagitis noted; biopsy was performed 2. There was gastritis in the gastric antrum; biopsy was performed 3. Normal duodenal mucosa 4. Retroflexed views revealed no abnormalities RECOMMENDATIONS: 1. Await biopsy results. Biopsy results will not be ready for 7-10 days. If you don't hear from us in two weeks, call our office for biopsy results. 2. Anti-reflux regimen 3. Continue PPI 4. Avoid NSAIDS PATIENT CONDITION: stable DISPOSITION: Inpatient REPEAT EXAM: Return 1 year EGD pending biopsy results Maisha Perez MD eSigned: Maisha Perez MD 06/09/2018 12:57 PM cc: PATIENT NAME: Cheryl Jay MR#: [id number]
[2018-06-09] MEDS: Pantoprazole Inj 80 MG in Sodium Chlor 0.9% Inj 100 ML IV.CONT SCH (13:57)
[2018-06-09 16:06] VITALS: BP 139/93; PULSE 88; RESP 20; TEMP 97.6; O2SAT 95
[2018-06-09] MEDS ORDERED: Rivaroxaban 20 MG Tablet PO SCH (17:00)
--- NOTE | 2018-06-09 18:30 | ECG ---
Date Performed: 06/09/2018 Time Performed: 08:10:17 PTAGE: 68 years EKG: Sinus rhythm BORDERLINE LEFT AXIS DEVIATION NONSPECIFIC T-WAVE ABNORMALITY BORDERLINE ECG NO PREVIOUS TRACING DOCTOR: Zenia Manzo Interpretating Date/Time 06/09/2018 18:29:41
[2018-06-12 23:50] LABS: Homocysteine (Cardiovascular) 14.2 umol/L (<10.4)
[2018-06-13 03:50] LABS: Factor VIII (8) Activity 128 (50-180)
[2018-06-14 17:51] LABS: Dil Russell Viper Venom Conf ( NEGATIVE (NEGATIVE); Dil Russell Viper Venom Time M ND (CORRECTED); Lupus Anticoagulant PTT Screen 36 seconds (< OR = 40)
[2018-06-15 03:50] LABS: Activated Protein C Resistance 4.8 ratio (> OR = 2.1)
[2018-06-15 20:15] LABS: Factor V Leiden Mutation Negative (Negative); Protein C Antigen 137 % (70-150)
== END 2018-06-09 18:31 | disposition home or self-care (01) ==
LOC: PHEDA 11:45 → PHED 11:45 → PH3 11:45 → PHEDA 17:45 → PH3 17:47
PROVIDERS: ADMIT Family Medicine; ATTEND Family Medicine
PROC: PANENDO (2018-06-09 12:23)

== ENCOUNTER 2018-07-09 11:14 | Inpatient (IN) ==
[2018-07-09] MEDS ORDERED: Sodium Chlor 0.9% Inj 500 ML IV.SIG ONE (12:00)
[2018-07-09] MEDS ORDERED: Phenylephrine/NS 1000 MCG/10ML Syringe IV.PUSH ONE (12:00)
[2018-07-09] MEDS ORDERED: Lidocaine PF 1% Inj 5 ML Syringe INFILTRATN ONE (12:00)
[2018-07-09] MEDS ORDERED: Metoprolol Tartrate 25 MG Tablet PO SCH (12:15)
[2018-07-09] MEDS ORDERED: Chlorhexidine Gluconate 2% 1 Pack (2 Cloths) TOPICAL SCH (12:15)
[2018-07-09] MEDS ORDERED: Dextrose 5%/NaCl 0.9% Inj 1,000 ML IV.SIG SCH (12:15)
[2018-07-09] MEDS ORDERED: Heparin - SQ 10,000 UNITS/ML Vial SQ SCH (12:15)
[2018-07-09] MEDS ORDERED: Sodium Chlor 0.9% Inj 500 ML IV.SIG SCH (13:00)
[2018-07-09 14:11] LABS: Bacteria,Urine Rare /hpf; Bilirubin,Urine Negative (Negative); Clarity,Urine Hazy (Clear); Color,Urine Yellow (Yellw/Straw); Glucose,Urine (UA) Negative (Negative); Hyaline Casts,Urine 16 /lpf (0-3); Leukocyte Esterase,Urine Trace (Negative); Mucus,Urine Few /lpf (Occasional); Nitrite,Urine Negative (Negative); Specific Gravity,Urine 1.019 (1.002-1.035); Squamous Epithelial Cell,Urine 3 /hpf (0-5)
[2018-07-09 14:32] LABS: Activated Partial Thrombo Time 26.6 sec (24.3-30.1); Prothrombin Time 10.3 sec (9.8-11.6)
[2018-07-09] MEDS ORDERED: Sugammadex Inj 200 MG/2 ML Vial IV.PUSH ONE (15:20)
[2018-07-09] MEDS ORDERED: Hypromellose 0.3% Opth Gel 10 GM Bottle ONE (15:21)
[2018-07-09] MEDS ORDERED: ceFAZolin 2 GM/NS 100 ML IV; Q8H IV.SIG ONE ×2 (16:00)
[2018-07-09] MEDS ORDERED: Ciprofloxacin 400 MG/200 ML 400 MG/200 ML PIGGYBACK IV.SIG ONE (16:33)
--- NOTE | 2018-07-09 17:37 | P.OP ---
- Preoperative Diagnosis (1) Colon adenocarcinoma - Postoperative Diagnosis (1) Colon adenocarcinoma Date of procedure: 07/09/18 Procedure: Urologic surgery procedures: Cystoscopy and placement of bilateral ureteral catheters. Anesthesia: GETA Surgeon: Conner Gardner MD Estimated blood loss (mL): 0 Pathology: none sent Operation and Findings: Indication for urologic surgery procedures: Consulted intraoperatively to pass bilateral ureteral catheters to aid in visualization of this patient's ureters during her colorectal procedure. Urologic procedures in detail: Concurrent with the colorectal surgeon Dr. Ruelas, I proceeded with cystoscopy and placement of bilateral ureteral catheters as follows. Initially cystoscopic evaluation was performed utilizing the rigid cystoscope with the 22 [place]ar[place] sheath and 30 lens. Both right and left ureteral orifices were in correct anatomic position draining clear yellow urine. There were no bladder mucosal lesions, calculi or diverticula formation noted. I then proceeded to pass a sensor 0.035 wire up the patient's left ureter until a small amount of resistance was met. A 6 [place]ar[place]uan open-ended ureteral catheter was then advanced over this wire 25 cm in a cephalad direction. With the catheter in place the wire was withdrawn and reintroduced through secondary site by the cystoscope. In similar fashion the contralateral side was accomplished. With both catheters in place the cystoscope and wire were withdrawn and a silicone 16 [place]ar[place]uan 10 cc [place] catheter was placed. The ureteral catheters were then anchored to the [place] via a connector and all 3 catheters placed to gravity drainage. This completes the urologic surgery portion of combined procedures on this patient.
[2018-07-09] MEDS ORDERED: fentaNYL Citrate Inj 100 MCG/2 ML Ampul ONE ×2 (18:45→22:59)
[2018-07-09] MEDS ORDERED: Albumin Human 5% Inj 500 ML IV.SIG ONE (21:33)
[2018-07-09 23:33] LABS: Baso % (Auto) 0.2 % (0.0-2.0); Hematocrit 25.8 % (35.0-46.0); Hemoglobin 8.5 gm/dL (11.6-15.3); Lymph # (Auto) 0.4 th/mm3 (1.0-4.8); Lymph % (Auto) 2.1 % (9.0-44.0); Mean Corpuscular HGB Conc 32.8 % (32.0-36.0); Mean Corpuscular Hemoglobin 28.8 pg (27.0-34.0); Mean Corpuscular Volume 87.8 fL (80.0-100.0); Mean Platelet Volume 8.8 fL (7.0-11.0); Mono # (Auto) 0.4 th/mm3 (0.0-0.9); Mono % (Auto) 2.4 % (0.0-8.0); Neut # (Auto) 16.9 th/mm3 (1.8-7.7); Neut % (Auto) 95.3 % (16.0-70.0); Platelet Count 318 th/mm3 (150-450); Red Blood Count 2.94 mil/mm3 (4.00-5.30); Red Cell Distribution Width 14.1 % (11.6-17.2); White Blood Count 17.8 th/mm3 (4.0-11.0)
[2018-07-09] MEDS ORDERED: *Meperidine Inj 25 MG/ML Vial PERIprocedural Use ONLY ONE (23:40)
[2018-07-09 23:44] LABS: Calcium 7.8 mg/dL (8.5-10.1); Potassium 3.8 meq/L (3.5-5.1)
--- NOTE | 2018-07-09 23:44 | MP ---
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 PROCEDURE PERFORMED: 1. Laparoscopic/robotic extensive lysis of adhesions. 2. Robotic takedown of the splenic flexure. 3. Robotic descending colectomy. 4. Robotic small bowel resection. SURGEON: Sandhya Ruelas MD COMPUTER ENGINEERING TECHNOLOGIST Scott. ANESTHESIA: General per ET tube. ESTIMATED BLOOD LOSS: 100 mL. OPERATIVE INDICATIONS: The patient is a 68-year-old female who was recently noted to have a cancer, apparently in the sigmoid colon. Of note, flexible sigmoidoscopy done yesterday by myself with tattooing of the area, and I did question that it was likely higher than the sigmoid colon. OPERATIVE COURSE: The patient was brought to the operating room, and placed in the supine position. After induction of general anesthesia, the patient was placed in Zach stirrups and all bony prominences were carefully padded. The skin of the anterior abdominal wall, as well as the perineal area, were then prepped and draped in the usual sterile fashion. Dr. Gardner then came in and performed cystoscopy, with placement of bilateral ureteral catheters; please see his operative note for details. Due to her previous mesh, I elected to place her assist port in first. This was 2 fingerbreadths below the right costal margin, equal distance between where I planned the camera and the #1 port. A 5-trocar was placed at this location under direct vision. CO2 insufflation was then undertaken. A brief survey was undertaken and the patient was immediately noted to have adhesions throughout, with really just a tiny area in which to work. Luckily, I was able to place her right lower quadrant #1 port, a 10/12, under direct vision using the laparoscope. Then, I tediously and slowly dissected free adhesions, bowel to bowel, small bowel to colon, and colon and small bowel to the anterior abdominal wall. It took about an hour and a half to 2 hours of very slow tedious work, using a combination of mostly sharp, but a little bit of electrocautery, dissection to eventually dissect free the small bowel. There were some areas of small bowel that were noted to be moderately dilated as well. Eventually, we had mobility of all the small bowel and I was able to get a better look. There was small bowel again adherent over the descending colon and sigmoid colon, which was quite redundant. I eventually was able to clear these until I had visualization of the sigmoid colon and descending colon. After evaluating the bowel, I was able to locate the area of tattooing right at the splenic flexure and then I was able to visualize the evidence of the tumor in the proximal descending colon. With this, we elected to change our approach and proceed with a descending colectomy. The assist port was changed out for a da Julia port to allow for docking over the left shoulder and 2 additional ports were placed, one in the left midclavicular line, just below the umbilicus, and the other just above the umbilicus in the left anterior axillary line. The patient was then turned with her head slightly up and the robot was docked. The lateral peritoneal attachments of the descending colon were dissected free up to but not around the splenic flexure. The omentum was then pulled away from the transverse colon and dissection was continued in this plane until the lesser sac was entered. This dissection continued up and to the left and met our previous dissection. This dissection continued posteriorly, freeing the transverse colon mesentery and descending colon mesentery from their peritoneal attachments and from Gerota's fascia. Dissection continued down to the level of the distal descending colon until I felt that we had a nice length of bowel for an extracorporeal anastomosis. A window was then made at the base of the mesentery and using a Harmonic scalpel, dissection was continued over to the left colic vessels. These were divided using the Harmonic scalpel, opening up a window for the mesentery for eventual resection. At this point, we were just getting ready to undock the robot and proceed with our extracorporeal anastomosis, when it became more and more evident that one particular loop of the small bowel was getting quite massively dilated for no discernible reason. With this, I elected to proceed with a small midline incision around the umbilicus to see if we could evaluate the small bowel better and try to figure out what was going on with this piece of small bowel. The robot was then undocked. A 15 cm midline incision was made around the umbilicus. Using electrocautery, dissection was carried down to the fascia of the anterior abdominal wall. The fascia and the mesh were then divided. Immediately noted was this very massively dilated loop of small bowel. It was gently pulled up and out through the incision and multiple adhesions were again dissected free from other loops around it and overlying it and I was eventually able to visualize it distally. At the very end of the loop, there was an area of what appeared to be a partial chronic obstruction with some thickening and narrowing of the bowel distally. Proximally, the bowel was very, very thin and very dilated and ultimately I felt that it would be more prudent to remove this small loop of small bowel. The remainder of the small bowel was run to the extent possible. There were some loops that were adherent posteriorly that I could not visualize. All of the small bowel that we did visualize appeared healthy and not injured. A site was chosen for proximal division of the small bowel, where the bowel was healthier-appearing. It was opened at this level and a blue load of the DAREK-75 was placed across the bowel before it was closed and fired. A site was chosen for distal division of the bowel, just past the area of partial obstruction. The mesentery was cleared and a reload of the DAREK stapler was placed across the bowel at this level. The intervening mesentery was then serially divided and ligated using 0 Vicryl ties. The antimesenteric corners of the staple line were then removed. One limb of the gastrointestinal stapler was placed down each limb of the bowel. This was closed along the antimesenteric border, fired, and removed, thus creating an enteroenterotomy. The resulting enterotomy was closed transversely using a TX 60 stapling device. Two simple stay sutures were placed at the distal end of the anastomosis using a 3-0 Vicryl. The anastomosis was palpated and found to be widely patent and the bowel was reduced easily into the peritoneal cavity. The loop of descending colon with the tumor in place was then gently prolapsed out through the incision. A site was chosen for proximal and distal division of the bowel, where the mesentery was cleared. A load of the DAREK-75 blue load stapler was placed across the bowel both proximally and distally. This bowel was then divided and the intervening mesentery was serially divided and ligating with 0 Vicryl ties. The specimen was taken to a back table, where it was later opened and the cancer was confirmed. The antimesenteric corners of the staple line were then removed. One limb of the gastrointestinal stapler was placed down each limb of the bowel. This was closed along the antimesenteric border, fired, and removed, thus creating an enteroenterotomy. The resulting enterotomy was closed transversely using a TX 60 stapling device. A simple stay suture was placed at the distal end of the anastomosis using 3-0 Vicryl. The anastomosis was palpated and found to be widely patent and was returned to the peritoneal cavity. The peritoneal cavity was then copiously irrigated with warm normal saline. A NORMA was placed through the left lower quadrant incision into the pelvis. The fascia at the umbilical port was closed in interrupted fashion using 3-0 Vicryl and the midline incision was closed in a running fashion using #1 PDS. The wound was copiously irrigated with warm normal saline and the skin was closed in a running subcuticular fashion, using 3-0 Vicryl. The drain site was then secured using 3-0 nylon and the skin at the trocar sites were closed in interrupted subcuticular fashion with 3-0 Vicryl. The ureteral catheters were then removed. A sterile dressing was then applied. All sponge, needle and instrument counts were correct and the patient was returned to the Postanesthesia Care Unit in stable condition. MD VICENTE Baird/francisco , 10:38 PM , 10:53 PM KATHY
[2018-07-09] MEDS: Dextrose 5%/NaCl 0.9% Inj 1,000 ML IV.CONT SCH (23:51)
[2018-07-10] MEDS ORDERED: Naloxone Inj 0.4 MG/ML Vial IV.PUSH PRN (01:43)
[2018-07-10] MEDS: Heparin - SQ 10,000 UNITS/ML Vial SQ SCH ×2 (08:55→21:07)
[2018-07-10] MEDS: buPROPion 75 MG Tablet PO SCH ×2 (08:57→21:17)
[2018-07-10] MEDS: dilTIAZem CD 240 MG Capsule PO SCH (08:58)
[2018-07-10] MEDS ORDERED: Amitriptyline 25 MG Tablet PO SCH (09:00)
[2018-07-10] MEDS ORDERED: Famotidine PF Inj 20 MG/2 ML Vial IV.PUSH SCH (09:00)
[2018-07-10] MEDS: Dextrose 5%/NaCl 0.9% Inj 1,000 ML IV.CONT SCH ×3 (09:20→21:04)
[2018-07-10] MEDS: Morphine Inj 30 MG/30 ML PCA.VIAL PCA PRN (11:34)
--- NOTE | 2018-07-10 11:35 | P.PN ---
Subjective Interval history: POD#1 s/p robotic VIRIDIANA, SBR, Desc colectomy comfortable, only pain is in shoulders (chronic) Physical Exam Vital signs: Vital Signs 07/09/18 12:31 07/09/18 22:50 07/09/18 23:00 Temperature 99.0 F 97.6 F 97.6 F Pulse Rate 92 H 70 69 Respiratory Rate 16 14 14 Blood Pressure 136/97 H 132/77 131/72 Pulse Oximetry 98 99 99 07/09/18 23:15 07/09/18 23:30 07/09/18 23:45 Temperature 97.6 F 97.6 F 97.6 F Pulse Rate 68 68 74 Respiratory Rate 14 14 14 Blood Pressure 131/73 134/65 119/93 H Pulse Oximetry 95 93 L 89 L 07/10/18 00:00 07/10/18 00:15 07/10/18 00:30 Temperature 97.6 F 97.1 F L Pulse Rate 69 71 Respiratory Rate 14 14 Blood Pressure 131/72 155/73 H Pulse Oximetry 99 98 100 07/10/18 00:55 07/10/18 00:57 07/10/18 01:00 Temperature 97.1 F L 97.6 F Pulse Rate 76 72 77 Respiratory Rate 14 14 Blood Pressure 162/77 H 146/73 H Pulse Oximetry 100 100 07/10/18 03:00 Temperature Pulse Rate 75 Respiratory Rate Blood Pressure Pulse Oximetry Intake & Output 07/09/18 07/10/18 07/10/18 18:59 06:59 18:59 Intake Total 300 / 300 9150 / 9150 100 / 100 Output Total 1170 / 1170 Balance 300 / 300 7980 / 7980 100 / 100 Weight 83.2 kg Intake: IV 300 / 300 1100 / 1100 100 / 100 D5W/Normal Saline Inj 1,000 ML 1000 / 1000 @ 150 mls/hr IV.CONT .Q6H40M [facility] Rx#:[id number] Cipro 400 MG/200 ML Inj 400 mg 200 / 200 In 200 ml @ 0 mls/hr IV.SIG . STK-MED ONE Rx#:[id number] Flagyl 500 MG Inj 100 ML @ 200 100 / 100 100 / 100 100 / 100 mls/hr IV.SIG Q8H [facility] Rx#: [id number] Oral 50 / 50 Anesthesia Amount 8000 / 8000 Output: Urine 500 / 500 Estimated Blood Loss 200 / 200 Urine Amount (Catheter) 300 / 300 Indwelling Urethral Catheter 300 / 300 Wound Drainage 170 / 170 # 1 Left Lower Abdomen NORMA Drain 170 / 170 Other: Weight On Admission 83.2 kg - Routine Abdominal Exam Comments: soft, nondistended, tender Dressings c/d/i - Urinary Catheter Management Indwelling Urethral Catheter Cath placed during this visit: yes Reason for continuing: Hourly intake/output Insertion date: 07/09/18 Insertion time: 17:35 Results - Labs CBC & Chem 7: 07/09/18 23:00 07/09/18 23:00 Laboratory Results - last 24 hr 07/09/18 07/09/18 07/09/18 12:20 12:27 12:27 WBC RBC Hgb Hct MCV MCH MCHC RDW Plt Count MPV Neut % (Auto) Lymph % (Auto) [place] % (Auto) Eos % (Auto) Baso % (Auto) Neut # (Auto) Lymph # (Auto) [place] # (Auto) Eos # (Auto) Baso # (Auto) WBC Differential Differential Comment PT 10.3 INR 1.0 APTT 26.6 Cancelled Sodium Potassium Chloride Carbon Dioxide Anion Gap BUN Creatinine Estimated GFR Random Glucose Calcium Urine Color Yellow Urine Clarity Hazy H Urine pH 5.0 Ur Specific [place] 1.019 Urine Protein 30 H Urine Glucose (UA) Negative Urine Ketones Negative Urine Occult Blood Negative Urine Nitrate Negative Urine Bilirubin Negative Urine Urobilinogen Less than 2 Ur Leukocyte Esterase Trace H Urine RBC 1 Urine WBC 1 Ur Squamous Epith Cells 3 Urine Bacteria Rare H Hyaline Casts 16 Urine Mucus Few H Micro UA Comment Culture not ind Ur Microscopic Review Not Reportable Urine Culture Comments Culture not ind Blood Type Antibody Screen 07/09/18 07/09/18 07/09/18 12:27 23:00 23:00 WBC 17.8 H RBC 2.94 L Hgb 8.5 L Hct 25.8 L MCV 87.8 MCH 28.8 MCHC 32.8 RDW 14.1 Plt Count 318 D MPV 8.8 Neut % (Auto) 95.3 H Lymph % (Auto) 2.1 L [place] % (Auto) 2.4 Eos % (Auto) 0.0 Baso % (Auto) 0.2 Neut # (Auto) 16.9 H Lymph # (Auto) 0.4 L [place] # (Auto) 0.4 Eos # (Auto) 0.0 Baso # (Auto) 0.0 WBC Differential . Differential Comment Auto diff final PT INR APTT Sodium 140 Potassium 3.8 Chloride 111 H Carbon Dioxide 18.0 L Anion Gap 11 BUN 18 Creatinine 1.46 H Estimated GFR 36 L Random Glucose 137 H Calcium 7.8 L Urine Color Urine Clarity Urine pH Ur Specific [place] Urine Protein Urine Glucose (UA) Urine Ketones Urine Occult Blood Urine Nitrate Urine Bilirubin Urine Urobilinogen Ur Leukocyte Esterase Urine RBC Urine WBC Ur Squamous Epith Cells Urine Bacteria Hyaline Casts Urine Mucus Micro UA Comment Ur Microscopic Review Urine Culture Comments Blood Type O Positive Antibody Screen Negative Assessment and Plan - Assessment (1) Colon adenocarcinoma Code(s): C18.9 - Malignant neoplasm of colon, unspecified Status: Acute - Plan Doing well Will likely have ileus with extensive viridiana, continue NGT for now D/C de la cruz decrease IVF
[2018-07-10] MEDS: Amitriptyline 25 MG Tablet PO SCH (21:06)
[2018-07-10] MEDS: Famotidine PF Inj 20 MG/2 ML Vial IV.PUSH SCH (21:07)
[2018-07-10] MEDS: PCA - Total MG Morphine Delevered per Shift MISCELLANE SCH (21:17)
[2018-07-10] MEDS ORDERED: Levofloxacin 500 mg Premix Inj 500 MG/100 ML PIGGYBACK IV.SIG ONE (22:24)
[2018-07-11 05:21] LABS: Baso # (Auto) 0.1 th/mm3 (0.0-0.2); Baso % (Auto) 0.5 % (0.0-2.0); Hematocrit 24.4 % (35.0-46.0); Lymph # (Auto) 1.3 th/mm3 (1.0-4.8); Lymph % (Auto) 11.8 % (9.0-44.0); Mean Corpuscular HGB Conc 32.6 % (32.0-36.0); Mean Corpuscular Hemoglobin 28.7 pg (27.0-34.0); Mean Corpuscular Volume 87.9 fL (80.0-100.0); Mean Platelet Volume 9.2 fL (7.0-11.0); Mono # (Auto) 0.9 th/mm3 (0.0-0.9); Mono % (Auto) 8.1 % (0.0-8.0); Neut # (Auto) 8.9 th/mm3 (1.8-7.7); Neut % (Auto) 79.6 % (16.0-70.0); Platelet Count 300 th/mm3 (150-450); Red Blood Count 2.77 mil/mm3 (4.00-5.30); Red Cell Distribution Width 14.3 % (11.6-17.2); White Blood Count 11.2 th/mm3 (4.0-11.0)
[2018-07-11] MEDS: PCA - Total MG Morphine Delevered per Shift MISCELLANE SCH ×3 (05:30→22:25)
[2018-07-11 05:45] LABS: Carbon Dioxide 21.3 meq/L (21.0-32.0); Potassium 3.7 meq/L (3.5-5.1)
[2018-07-11] MEDS: dilTIAZem CD 240 MG Capsule PO SCH (08:20)
[2018-07-11] MEDS: Heparin - SQ 10,000 UNITS/ML Vial SQ SCH ×2 (08:20→20:57)
[2018-07-11] MEDS: buPROPion 75 MG Tablet PO SCH ×2 (08:20→20:58)
[2018-07-11] MEDS: Famotidine PF Inj 20 MG/2 ML Vial IV.PUSH SCH ×2 (08:20→20:58)
--- NOTE | 2018-07-11 11:32 | P.PN ---
Subjective Interval history: POD#2 s/p robotic extensive viridiana, descending colectomy no pain, no nausea Physical Exam Vital signs: Vital Signs 07/10/18 12:00 07/10/18 16:00 07/10/18 20:00 Temperature 98.8 F 98.4 F 99.4 F Pulse Rate 80 86 76 Respiratory Rate 16 16 18 Blood Pressure 142/81 H 141/81 H 155/86 H Pulse Oximetry 94 L 94 L 94 L 07/11/18 00:00 07/11/18 07:00 07/11/18 08:00 Temperature 98.4 F 98.2 F Pulse Rate 77 76 76 Respiratory Rate 18 18 Blood Pressure 143/68 H 141/78 H Pulse Oximetry 90 L 92 L Intake & Output 07/10/18 07/11/18 07/11/18 18:59 06:59 18:59 Intake Total 1100 / 1100 1100 / 1100 1000 / 1000 Output Total 790 / 790 130 / 130 Balance 310 / 310 970 / 970 1000 / 1000 Weight 89.3 kg Intake: IV 1100 / 1100 1100 / 1100 1000 / 1000 D5W/Normal Saline Inj 1,000 ML 1000 / 1000 1000 / 1000 1000 / 1000 @ 100 mls/hr IV.CONT .Q10H [facility] Rx#:[id number] Levaquin 500 mg Premix Inj 500 100 / 100 mg In 100 ml @ 100 mls/hr IV. SIG ONCE ONE Rx#:[id number] Flagyl 500 MG Inj 100 ML @ 200 100 / 100 mls/hr IV.SIG Q8H [facility] Rx#: [id number] Oral 0 / 0 Output: Urine Amount (Catheter) 750 / 750 Indwelling Urethral Catheter 750 / 750 Gastric Drainage 100 / 100 Left Nare 100 / 100 Wound Drainage 40 / 40 30 / 30 # 1 Left Lower Abdomen NORMA Drain 40 / 40 30 / 30 - Routine Abdominal Exam Comments: soft, nondistended, tender wounds clean NORMA serosanguinous - Urinary Catheter Management Indwelling Urethral Catheter Cath placed during this visit: yes Reason for continuing: Hourly intake/output Insertion date: 07/09/18 Insertion time: 17:35 Results - Labs CBC & Chem 7: 07/11/18 03:56 07/11/18 03:56 Laboratory Results - last 24 hr 07/11/18 07/11/18 03:56 03:56 WBC 11.2 H RBC 2.77 L Hgb 8.0 L Hct 24.4 L MCV 87.9 MCH 28.7 MCHC 32.6 RDW 14.3 Plt Count 300 MPV 9.2 Neut % (Auto) 79.6 H Lymph % (Auto) 11.8 [place] % (Auto) 8.1 H Eos % (Auto) 0.0 Baso % (Auto) 0.5 Neut # (Auto) 8.9 H Lymph # (Auto) 1.3 [place] # (Auto) 0.9 Eos # (Auto) 0.0 Baso # (Auto) 0.1 WBC Differential . Differential Comment Auto diff final Sodium 142 Potassium 3.7 Chloride 110 H Carbon Dioxide 21.3 Anion Gap 11 BUN 12 Creatinine 1.40 H Estimated GFR 38 L Random Glucose 115 H Calcium 8.0 L Assessment and Plan - Assessment (1) Colon adenocarcinoma Code(s): C18.9 - Malignant neoplasm of colon, unspecified Status: Acute - Plan Doing well Check KUB, if NGT in good position and bowel not particularly dilated, will remove NGT D/C de la cruz Decrease IVF [employer]
--- NOTE | 2018-07-11 13:30 | XR ---
EXAM DATE: 07/11/2018 1:20 PM EDT AGE/SEX: 68 years / Female INDICATIONS: Distention. CLINICAL DATA: This is the patient's subsequent encounter. Patient reports that signs and symptoms h ave been present for 1 day and indicates a pain score of 2/10. MEDICAL/SURGICAL HISTORY: . Transient ischemic attack . Appendectomy. Cholecystectomy. Hystere ctomy. Hernia repair. COMPARISON: No prior exams available for comparison. FINDINGS: 2 AP supine views of the abdomen. Surgical clips in the right upper quadrant. Apparent drainage cath eter is seen in the pelvis with the tip in the right lower quadrant. Markedly distended air-filled julia wel in the mid to lower abdomen with an inverted U shape measuring up to 10.2 cm in diameter. Gas in mildly distended ascending and descending portions of the colon. Gas in nondilated proximal small bow el. No gas identified in the rectum. Nasogastric tube tip is in the chest, likely in the distal esoph tomas. CONCLUSION: Dilated air-filled bowel in the mid to lower mid abdomen with an inverted U-shape, likely representin g sigmoid colon. Findings indicate possible sigmoid volvulus. Electronically signed by: Allan Shi MD 07/11/2018 1:29 PM EDT
[2018-07-11] MEDS: Dextrose 5%/NaCl 0.9% Inj 1,000 ML IV.CONT SCH ×3 (19:00→22:24)
[2018-07-11] MEDS: Amitriptyline 25 MG Tablet PO SCH (20:57)
[2018-07-12] MEDS: Morphine Inj 30 MG/30 ML PCA.VIAL PCA PRN (01:54)
[2018-07-12] MEDS: PCA - Total MG Morphine Delevered per Shift MISCELLANE SCH ×3 (05:45→21:57)
[2018-07-12] MEDS: Famotidine PF Inj 20 MG/2 ML Vial IV.PUSH SCH ×2 (08:42→21:47)
[2018-07-12] MEDS: Heparin - SQ 10,000 UNITS/ML Vial SQ SCH ×2 (08:42→21:47)
[2018-07-12] MEDS: dilTIAZem CD 240 MG Capsule PO SCH (08:43)
[2018-07-12] MEDS: buPROPion 75 MG Tablet PO SCH (08:43)
--- NOTE | 2018-07-12 16:10 | P.PN ---
Subjective Interval history: POD#3 s/p robotic extensive viridiana, SBR, descending colectomy comforatble, no nausea, minimal pain Physical Exam Vital signs: Vital Signs 07/11/18 20:00 07/12/18 00:00 07/12/18 08:00 Temperature 98.7 F 98.3 F 98.1 F Pulse Rate 80 77 75 Respiratory Rate 18 18 17 Blood Pressure 153/79 H 159/82 H 155/81 H Pulse Oximetry 92 L 93 L 94 L 07/12/18 12:00 Temperature 97.9 F Pulse Rate 81 Respiratory Rate 17 Blood Pressure 137/84 Pulse Oximetry 94 L Intake & Output 07/11/18 07/12/18 07/12/18 18:59 06:59 18:59 Intake Total 1000 / 1000 Output Total 755 / 755 1060 / 1060 Balance 245 / 245 -1060 / -1060 Weight 89.3 kg Intake: IV 1000 / 1000 D5W/Normal Saline Inj 1,000 ML 1000 / 1000 @ 100 mls/hr IV.CONT .Q10H [facility] Rx#:[id number] Oral 0 / 0 Output: Urine Amount (Catheter) 700 / 700 1000 / 1000 Indwelling Urethral Catheter 700 / 700 1000 / 1000 Gastric Drainage 50 / 50 50 / 50 Left Nare 50 / 50 50 / 50 Wound Drainage 5 / 5 10 / 10 # 1 Left Lower Abdomen NORMA Drain 5 / 5 10 10 Other: Date of Last Bowel Movement 07/08/18 - Routine Abdominal Exam Comments: Abdomen soft, distended, minimal tenderness - Urinary Catheter Management Indwelling Urethral Catheter Cath placed during this visit: yes Reason for continuing: Hourly intake/output Insertion date: 07/09/18 Insertion time: 17:35 Results - Labs CBC & Chem 7: 07/11/18 03:56 07/11/18 03:56 Assessment and Plan - Assessment (1) Colon adenocarcinoma Code(s): C18.9 - Malignant neoplasm of colon, unspecified Status: Acute - Plan Clinically looks good, but xray concerning NGT in esophagus, stomach not dilated, will d/c Hold on PO Check labs
[2018-07-12] MEDS: Dextrose 5%/NaCl 0.9% Inj 1,000 ML IV.CONT SCH (17:45)
[2018-07-12 17:57] LABS: Baso % (Auto) 0.5 % (0.0-2.0); Eos # (Auto) 0.1 th/mm3 (0.0-0.4); Eos % (Auto) 1.4 % (0.0-4.0); Hematocrit 24.8 % (35.0-46.0); Hemoglobin 8.2 gm/dL (11.6-15.3); Lymph # (Auto) 1.7 th/mm3 (1.0-4.8); Lymph % (Auto) 16.1 % (9.0-44.0); Mean Corpuscular HGB Conc 33.1 % (32.0-36.0); Mean Corpuscular Volume 87.7 fL (80.0-100.0); Mean Platelet Volume 8.8 fL (7.0-11.0); Mono # (Auto) 0.7 th/mm3 (0.0-0.9); Mono % (Auto) 6.8 % (0.0-8.0); Neut # (Auto) 7.8 th/mm3 (1.8-7.7); Neut % (Auto) 75.2 % (16.0-70.0); Platelet Count 302 th/mm3 (150-450); Red Blood Count 2.83 mil/mm3 (4.00-5.30); Red Cell Distribution Width 14.2 % (11.6-17.2); White Blood Count 10.4 th/mm3 (4.0-11.0)
[2018-07-12 18:17] LABS: Calcium 8.1 mg/dL (8.5-10.1); Carbon Dioxide 23.3 meq/L (21.0-32.0); Potassium 3.1 meq/L (3.5-5.1)
[2018-07-12] MEDS: Amitriptyline 25 MG Tablet PO SCH (21:48)
[2018-07-13] MEDS: PCA - Total MG Morphine Delevered per Shift MISCELLANE SCH ×3 (06:00→23:14)
[2018-07-13] MEDS: dilTIAZem CD 240 MG Capsule PO SCH (08:35)
[2018-07-13] MEDS: Famotidine PF Inj 20 MG/2 ML Vial IV.PUSH SCH ×2 (08:35→23:13)
[2018-07-13] MEDS: Heparin - SQ 10,000 UNITS/ML Vial SQ SCH ×2 (08:36→23:13)
--- NOTE | 2018-07-13 10:10 | P.PN ---
Subjective Interval history: POD#4 s/p robotic extensive viridiana/sbr/descending colectomy comfortable, passing gas Physical Exam Vital signs: Vital Signs 07/12/18 12:00 07/12/18 16:00 07/12/18 20:00 Temperature 97.9 F 97.2 F L 97.6 F Pulse Rate 81 82 70 Respiratory Rate 17 17 20 Blood Pressure 137/84 163/78 H 171/80 H Pulse Oximetry 94 L 93 L 95 07/13/18 00:00 07/13/18 08:00 Temperature 98.5 F 98.4 F Pulse Rate 69 85 Respiratory Rate 20 19 Blood Pressure 138/77 172/97 H Pulse Oximetry 93 L 96 Intake & Output 07/12/18 07/13/18 07/13/18 18:59 06:59 18:59 Intake Total 1000 / 1000 1000 / 1000 Output Total 225 / 225 300 / 300 Balance 775 / 775 700 / 700 Weight 90.4 kg Intake: IV 1000 / 1000 1000 / 1000 D5W/Normal Saline Inj 1,000 ML 1000 / 1000 1000 / 1000 @ 50 mls/hr IV.CONT .Q20H [facility] Rx#:[id number] Output: Urine 200 / 200 300 / 300 Wound Drainage # 1 Left Lower Abdomen NORMA Drain Other: # Voids 1 Date of Last Bowel Movement 07/08/18 - Routine Abdominal Exam Comments: soft, less distended, nontender wounds clean - Urinary Catheter Management Indwelling Urethral Catheter Cath placed during this visit: yes Reason for continuing: Hourly intake/output Insertion date: 07/09/18 Insertion time: 17:35 Results - Labs CBC & Chem 7: 07/12/18 17:25 07/12/18 17:25 Laboratory Results - last 24 hr 07/12/18 07/12/18 17:25 17:25 WBC 10.4 RBC 2.83 L Hgb 8.2 L Hct 24.8 L MCV 87.7 MCH 29.0 MCHC 33.1 RDW 14.2 Plt Count 302 MPV 8.8 Neut % (Auto) 75.2 H Lymph % (Auto) 16.1 [place] % (Auto) 6.8 Eos % (Auto) 1.4 Baso % (Auto) 0.5 Neut # (Auto) 7.8 H Lymph # (Auto) 1.7 [place] # (Auto) 0.7 Eos # (Auto) 0.1 Baso # (Auto) 0.0 WBC Differential . Differential Comment Auto diff final Sodium 143 Potassium 3.1 L Chloride 110 H Carbon Dioxide 23.3 Anion Gap 10 BUN 5 L Creatinine 1.11 H Estimated GFR 49 L Random Glucose 98 Calcium 8.1 L Assessment and Plan - Assessment (1) Colon adenocarcinoma Code(s): C18.9 - Malignant neoplasm of colon, unspecified Status: Acute - Plan start clears cautiously d/c NORMA decrease IVF [employer]
[2018-07-13] MEDS: Amitriptyline 25 MG Tablet PO SCH (23:12)
[2018-07-14] MEDS: PCA - Total MG Morphine Delevered per Shift MISCELLANE SCH (06:06)
[2018-07-14] MEDS: Famotidine PF Inj 20 MG/2 ML Vial IV.PUSH SCH ×2 (09:19→20:26)
[2018-07-14] MEDS: dilTIAZem CD 240 MG Capsule PO SCH (09:20)
[2018-07-14] MEDS: Heparin - SQ 10,000 UNITS/ML Vial SQ SCH ×2 (09:20→20:25)
--- NOTE | 2018-07-14 13:32 | P.PN ---
Subjective Interval history: POD#5 s/p extensive viridiana/descending colectomy comfortable Physical Exam Vital signs: Vital Signs 07/13/18 16:00 07/13/18 20:00 07/14/18 00:00 Temperature 98.1 F 98.8 F 98.3 F Pulse Rate 77 79 80 Respiratory Rate 18 19 20 Blood Pressure 140/84 141/82 H 145/80 H Pulse Oximetry 94 L 94 L 95 07/14/18 08:00 07/14/18 12:00 Temperature 98.5 F 98.2 F Pulse Rate 73 77 Respiratory Rate 18 18 Blood Pressure 128/81 155/80 H Pulse Oximetry 92 L 95 Intake & Output 07/13/18 07/14/18 07/14/18 18:59 06:59 18:59 Intake Total 1700 / 1700 1500 / 1500 Output Total 60 / 60 Balance 1700 / 1700 1500 / 1500 -60 / -60 Weight 87.9 kg Intake: Oral 1100 / 1100 1500 / 1500 Other 600 / 600 Output: Wound Drainage 60 / 60 # 1 Left Lower Abdomen NORMA Drain 60 / 60 Other: # Voids 5 3 Date of Last Bowel Movement 07/14/18 # Bowel Movements 0 1 - Routine Abdominal Exam Comments: Abdomen soft, nondistended, tender wounds clean - Urinary Catheter Management Indwelling Urethral Catheter Cath placed during this visit: yes Reason for continuing: Hourly intake/output Insertion date: 07/09/18 Insertion time: 17:35 Results - Labs CBC & Chem 7: 07/12/18 17:25 07/12/18 17:25 Assessment and Plan - Assessment (1) Colon adenocarcinoma Code(s): C18.9 - Malignant neoplasm of colon, unspecified Status: Acute - Plan D/C NORMA advance diet HL IV, 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
[2018-07-14] MEDS: Amitriptyline 25 MG Tablet PO SCH (20:26)
[2018-07-15] MEDS: Heparin - SQ 10,000 UNITS/ML Vial SQ SCH (08:31)
[2018-07-15] MEDS: Famotidine PF Inj 20 MG/2 ML Vial IV.PUSH SCH (08:31)
[2018-07-15] MEDS: dilTIAZem CD 240 MG Capsule PO SCH (08:32)
--- NOTE | 2018-07-15 17:25 | P.PN ---
Subjective Interval history: POD#6 s/p robotic extensive viridiana/descending colectomy, sbr comfortable Physical Exam Vital signs: Vital Signs 07/14/18 20:00 07/15/18 00:00 07/15/18 01:57 Temperature 98.2 F 98.2 F Pulse Rate 81 86 Respiratory Rate 18 16 18 Blood Pressure 135/83 128/82 Pulse Oximetry 93 L 94 L 07/15/18 04:00 07/15/18 08:00 07/15/18 12:00 Temperature 97.5 F L 98.5 F Pulse Rate 94 H 94 H Respiratory Rate 16 18 16 Blood Pressure 147/72 H 122/68 Pulse Oximetry 94 L 92 L 07/15/18 15:20 07/15/18 16:00 Temperature Pulse Rate Respiratory Rate 17 17 Blood Pressure Pulse Oximetry Intake & Output 07/14/18 07/15/18 07/15/18 18:59 06:59 18:59 Intake Total 1580 / 1580 100 / 100 Output Total 60 / 60 Balance 1520 / 1520 100 / 100 Weight 86.5 kg Intake: IV 100 / 100 Oral 1580 / 1580 Output: Wound Drainage 60 / 60 # 1 Left Lower Abdomen NORMA Drain 60 / 60 Other: # Voids 4 2 Date of Last Bowel Movement 07/14/18 07/14/18 # Bowel Movements 3 - Routine Abdominal Exam Comments: Abdomen soft, nondistended, tender wounds clean - Urinary Catheter Management Indwelling Urethral Catheter Cath placed during this visit: yes Reason for continuing: Hourly intake/output Insertion date: 07/09/18 Insertion time: 17:35 Results - Labs CBC & Chem 7: 07/12/18 17:25 07/12/18 17:25 Assessment and Plan - Assessment (1) Colon adenocarcinoma Code(s): C18.9 - Malignant neoplasm of colon, unspecified Status: Acute - Plan Doing well, some diarrhea Home today Followup 3 weeks
[2018-07-15 17:26] VITALS: BP 109/78; PULSE 86; RESP 18; TEMP 98.9; O2SAT 95
--- NOTE | 2018-07-17 17:54 | MD ---
cc: Sandhya Ruelas MD DATE OF DISCHARGE: 07/15/2018 ADMISSION DIAGNOSIS: 1. Sigmoid colon cancer. 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 PROCEDURES: 1. Laparoscopic/robotic extensive lysis of adhesions. 2. Robotic takedown splenic flexure. 3. Robotic descending colectomy. 4. Robotic small bowel resection. HOSPITAL COURSE: The patient is a 68-year-old female who was recently noted to have a cancer that was felt to be in the sigmoid colon. She was brought to the hospital on 07/09/2018, after an outpatient bowel prep. She was taken to the operating room where she underwent the above-named procedures. Intraoperatively, it was noted that her tumor was actually just distal to the splenic flexure. She also had copious and dense adhesions in the peritoneal cavity, which were resected as above. Postoperatively, she did well with gradual return of bowel and bladder function. She was discharged to home on 07/15/2018, with instructions to follow up with myself in the office. Final pathology revealed a T2N1a tumor. MD VICENTE Baird/judy/neris , 05:27 PM , 05:34 PM MTDGriffin
== END 2018-07-15 18:30 | disposition home or self-care (01) ==
LOC: HSDI 11:14 → HCPC 07-10 00:44 → N07 07-10 17:01
PROVIDERS: ADMIT Colon & Rectal Surgery; ATTEND Colon & Rectal Surgery

== ENCOUNTER 2018-10-14 07:57 | Observation (INO) ==
[2018-10-14] MEDS ORDERED: Sod Chloride 0.9% Inj 1,000 ML IV.SIG ONE (08:10)
--- NOTE | 2018-10-14 08:33 | ED ---
HPI General Chief Complaint: Dizziness Stated Complaint: Medical Time Seen by Provider: 10/14/18 08:05 Source: patient Mode of arrival: EMS Limitations: no limitations History of Present Illness HPI Narrative: 68yo F c/o weakness after showering this morning. pt sat down and was unable to get back up due to weakness in the thighs. + hx colon ca, currently undergoing chemotherapy with Dr Estrella. pt also s/p colon resection by dr pina. no fever/chills. + diarrhea with some fecal incontinence over past few weeks. no urinary incontinence. no vomiting. pt believes symptoms are 2 /2 dehydration. pt reports copious water ingestion. Related Data Home Medications Medication Instructions Recorded Confirmed alprazolam [Xanax] 0.5 mg PO BID PRN 06/08/18 10/14/18 amitriptyline 25 mg PO DAILY 06/08/18 10/14/18 diltiazem HCl 240 mg PO DAILY 06/08/18 10/14/18 estradiol 1 tab PO DAILY 06/08/18 10/14/18 ranitidine HCl [Zantac] 150 mg PO DAILY 06/08/18 10/14/18 spironolactone 25 mg PO DAILY 06/08/18 10/14/18 sumatriptan succinate [Imitrex] 50 mg PO Q2-4H PRN 06/08/18 10/14/18 tizanidine 4 mg PO HS 06/08/18 10/14/18 Usrpzopr-Gpqgspvsp-Morgzv 1 - 2 tsp PO ACHS 10/06/18 10/14/18 metoclopramide HCl 10 mg PO TID 10/06/18 10/14/18 morphine 15 mg PO Q12H 10/06/18 10/14/18 ondansetron HCl [Zofran] 8 mg PO TID PRN 10/06/18 10/14/18 hydrocodone-acetaminophen [[place]] 10 mg PO Q6HR PRN 10/07/18 10/14/18 Previous Rx's Medication Instructions Recorded rivaroxaban [Xarelto] 20 mg PO DAILY #30 tab 06/09/18 nitrofurantoin monohyd/m-cryst 100 mg PO BID #10 cap 10/07/18 [Macrobid] Allergies Allergy/AdvReac Type Severity Reaction Status Date / Time azathioprine Allergy Severe Gastrointestinal Verified 10/14/18 08:15 Upset cephalexin Allergy Severe kidney Verified 10/14/18 08:15 failure Gadolinium-Containing Allergy Severe Blister Verified 10/14/18 08:15 Contrast Medi hydroxychloroquine Allergy Severe Weakness Verified 10/14/18 08:15 methotrexate Allergy Severe Gastrointestinal Verified 10/14/18 08:15 Upset Latex, Natural Rubber Allergy Intermediate Itching Verified 10/14/18 08:15 Sulfa (Sulfonamide Allergy Intermediate Nausea/Vomi Verified 10/14/18 08:15 Antibiotics) ting ceftriaxone AdvReac Severe HEADACHE/NA Verified 10/14/18 08:15 USEA adhesive AdvReac Intermediate Itching, Verified 10/14/18 08:15 Localized Review of Systems ROS: all other systems reviewed are negative [facility] Social History Social History Substance History: No History of Abuse Second Hand Smoke Exposure: Yes Smoking Status: Never smoker How Often Do You Have a Drink Containing Alcohol: Never Recent Travel in [facility] within the Last 8 Weeks: No Recent Out of Country Travel within the Last 8 Weeks: No Immunization History Tetanus Immunization Year if Known: 2014 Exam Narrative Exam Narrative: GENERAL: 68 yo F, WNWD, mild distress SKIN: Focused skin assessment warm/dry. HEAD: Atraumatic. Normocephalic. EYES: Pupils equal and round. No scleral icterus. No injection or drainage. ENT: No nasal bleeding or discharge. Mucous membranes pink and moist. NECK: Trachea midline. No JVD. CARDIOVASCULAR: Regular rate and rhythm. No murmur appreciated. RESPIRATORY: No accessory muscle use. Clear to auscultation. Breath sounds equal bilaterally. GASTROINTESTINAL: Soft. Minimal TTP diffusely. MUSCULOSKELETAL: No obvious deformities. No clubbing. No cyanosis. No edema. NEUROLOGICAL: Awake and alert. No obvious cranial nerve deficits. Motor grossly within normal limits. Normal speech. PSYCHIATRIC: Appropriate mood and affect; insight and judgment normal. Course Initial Documented Vital Signs Temperature 97.9 F 10/14/18 08:06 Pulse Rate 96 H 10/14/18 08:06 Respiratory Rate 14 10/14/18 08:06 Blood Pressure 98/66 L 10/14/18 08:06 Pulse Oximetry 92 L 10/14/18 08:06 Last Documented Vital Signs Temperature 97.9 F 11/29/18 08:06 Pulse Rate 98 H 10/14/18 08:32 Respiratory Rate 14 10/14/18 08:06 Blood Pressure 117/74 10/14/18 08:32 Pulse Oximetry 95 10/14/18 08:32 Medical Decision Making MDM Narrative Medical decision making narrative: Bandemia present on differential approx 19% d/w Dr Estrella of heme-onc - recommendation for admission, last CTX 2 weeks prior, bandemia unlikely to reflect ctx or steroid side effect d/w Dr Lira for [facility]P pt agreeable with plan Medical Screen Exam Complete: Yes Emergency Medical Condition: Yes Differential Diagnosis Differential Diagnosis: dehydration, anemia, chemotherapy side effects Medical Records Medical records reviewed: Yes I reviewed the patient's medical records. Lab Data Result diagrams: 10/14/18 08:19 10/14/18 08:19 Lab Results 10/14/18 10/14/18 10/14/18 Range/Units 08:19 08:19 10:45 WBC 8.9 (4.0-11.0) th/mm3 RBC 4.65 (4.00-5.30) mil/mm3 Hgb 13.0 (11.6-15.3) gm/dL Hct 39.4 (35.0-46.0) % MCV 84.7 (80.0-100.0) fL MCH 27.9 (27.0-34.0) pg MCHC 32.9 (32.0-36.0) % RDW 27.5 H (11.6-17.2) % Plt Count 240 D (150-450) th/mm3 MPV 8.8 (7.0-11.0) fL Prelim Diff (Auto) Manual diff required WBC Differential Manual diff final Seg Neuts % (Manual) 70 (16-70) % Band Neuts % (Manual) 19 H (0-6) % Lymphocytes % (Manual) 4 L (9-44) % Monocytes % (Manual) 5 (0-8) % Metamyelocytes % (Man) 1 (0-1) % Myelocytes % (Man) 1 H (0-0) % Abs Neuts (Manual) 8.1 H (1.8-7.7) th/mm3 Differential Comment . Toxic Granulation 2+ H (None) Toxic Vacuolation Present H (None) Platelet Estimate Normal (Normal) Platelet Morphology Normal (Normal) Ovalocytes 1+ H (None) Sodium 132 L (136-145) meq/L Potassium 4.3 (3.5-5.1) meq/L Chloride 103 (98-107) meq/L Carbon Dioxide 14.5 L (21.0-32.0) meq/L Anion Gap 15 (5-15) meq/L BUN 31 H (7-18) mg/dL Creatinine 1.91 H (0.50-1.00) mg/dL Estimated GFR 26 L (>89) mL/min Random Glucose 122 H (74-106) mg/dL Calcium 8.1 L (8.5-10.1) mg/dL Total Bilirubin 0.5 (0.2-1.0) mg/dL AST 46 H (15-37) U/L ALT 18 (10-53) U/L Alkaline Phosphatase 107 (45-117) U/L Total Protein 6.2 L D (6.4-8.2) g/dL Albumin 1.7 L (3.4-5.0) g/dL Urine Color Yellow (Yellw/Straw) Urine Clarity Cloudy H (Clear) Urine pH 5.0 (5.0-8.5) Ur Specific [place] 1.019 (1.002-1.035) Urine Protein 100 H (Neg-Trace) mg/dL Urine Glucose (UA) Negative (Negative) mg/dL Urine Ketones Negative (Negative) mg/dL Urine Occult Blood Negative (Negative) Urine Nitrate Negative (Negative) Urine Bilirubin Negative (Negative) Urine Urobilinogen Less than 2 (Less than 2) mg/dL Ur Leukocyte Esterase Negative (Negative) Urine RBC 1 (0-3) /hpf Urine WBC 4 (0-5) /hpf Ur Squamous Epith Cells 10 (0-5) /hpf Urine Bacteria Moderate H (None) /hpf Hyaline Casts 8 (0-3) /lpf Urine Mucus Few H (Occasional) /lpf Ur Microscopic Review Not Reportable Imaging Data Radiologist's impression: Chest X-Ray 10/14/18 11:33 CONCLUSION: 1. No acute cardiopulmonary findings. 2. Postsurgical changes as above. Discharge Plan Discharge Disposition Patient Disposition: 30 Still Patient Physicians Team ED Provider: Flako Recinos Primary Care Provider: Jase Dhillon Attending Provider: Hina Villela Discharge Interventions Interventions: Vital Signs Last Done: 10/14/18 08:32 Status ED Status: Admitted Patient
[2018-10-14 08:44] LABS: Hematocrit 39.4 % (35.0-46.0); Mean Corpuscular HGB Conc 32.9 % (32.0-36.0); Mean Corpuscular Hemoglobin 27.9 pg (27.0-34.0); Mean Corpuscular Volume 84.7 fL (80.0-100.0); Mean Platelet Volume 8.8 fL (7.0-11.0); Platelet Count 240 th/mm3 (150-450); Red Blood Count 4.65 mil/mm3 (4.00-5.30); Red Cell Distribution Width 27.5 % (11.6-17.2); White Blood Count 8.9 th/mm3 (4.0-11.0)
[2018-10-14 09:06] LABS: Alanine Aminotransferase 18 U/L (10-53)
[2018-10-14 09:08] LABS: Alkaline Phosphatase 107 U/L (45-117); Total Protein 6.2 g/dL (6.4-8.2)
[2018-10-14 09:09] LABS: Albumin 1.7 g/dL (3.4-5.0); Anion Gap 15 meq/L (5-15); Aspartate Aminotransferase 46 U/L (15-37); Blood Urea Nitrogen 31 mg/dL (7-18); Calcium 8.1 mg/dL (8.5-10.1); Carbon Dioxide 14.5 meq/L (21.0-32.0); Chloride 103 meq/L (98-107); Glomerular Filtration Rate 26 mL/min (>89); Glucose,Random 122 mg/dL (74-106); Sodium 132 meq/L (136-145)
[2018-10-14 09:10] LABS: Potassium 4.3 meq/L (3.5-5.1)
[2018-10-14 09:17] LABS: Lymphocytes 4 % (9-44); Metamyelocytes 1 % (0-1); Monocytes 5 % (0-8); Myelocytes 1 % (0-0)
[2018-10-14 09:18] LABS: Ovalocytes 1+; Platelet Estimate Normal (Normal); Platelet Morphology Normal (Normal); Toxic Granulation 2+; Toxic Vacuolation Present
[2018-10-14 11:07] LABS: Bacteria,Urine Moderate /hpf; Bilirubin,Urine Negative (Negative); Clarity,Urine Cloudy (Clear); Color,Urine Yellow (Yellw/Straw); Glucose,Urine (UA) Negative (Negative); Hyaline Casts,Urine 8 /lpf (0-3); Leukocyte Esterase,Urine Negative (Negative); Mucus,Urine Few /lpf (Occasional); Nitrite,Urine Negative (Negative); Specific Gravity,Urine 1.019 (1.002-1.035); Squamous Epithelial Cell,Urine 10 /hpf (0-5)
--- NOTE | 2018-10-14 11:43 | P.HPFP ---
History of Present Illness Primary Care Physician: Jase Dhillon, <Hina Villela - 10/14/18 20:36> Jase Dhillon, <Hyacinth Lira - 10/14/18 11:43> History of Present Illness: 68 year old female presents with an episode of weakness. She has had episodes of diarrhea ( nonbloody, mucuousy) since 10/08 and has been trying to drink adequate fluids to keep up with her diarrhea. She has diarrhea every time she stands up. Incontinent and has no control of her bowel moments. This morning she was going to her doctors appointment at PCP ( Dr. Tracy Arias) for follow-up of her recent Ed visit for weakness (10/09). She felt weak when trying to get into the shower. She sat on her shower chair and felt her legs become weak and was unable to move them. She tried to get out of the shower and was unable to get out of the chair. The more she tried, the leg pain would get worse. Located in her quadriceps, and developed pain in shoulder blades bilaterally. The pain felt like intense sharp pains. Rated it a 12/10 in severity. The more she tried to get up, the more it caused the pain. She was also in and out of consciousness, and felt as though she was going to pass out. Her then called the ambulance and she was brought here for further evaluation. [facility] personnel had to lift her into the ambulance. She is currently being treated for UTI and confirms not eating and hydrating adequately. She also complains of some mild LLQ pain and blurry vision. PMH: Afib (Loop recorder placed and had alarms: one Thursday night and twice Thursday night. ), TIA x3, HTN, Lupus, CKD 3, Colon Cancer diagnosed July 09. Last chemo on Sep 28. Migraines, Panic Attacks, GERD. PSH: Colon cancer (removed partially in June) , appendectomy, hernia repair ( 2008), cholecystectomy, Left and R Knee replacement. Shoulder surgery, hysterectomy ( been on Estradiol since her 40s). A: See above. Multiple. Severe allergy to Rocephin (vomiting). Unsure about allergies to Latex. Meds: Reglan, Estradiol, [place], Last Chemo ., Amitriptyline, Xanax. Macrobid ( last day, missed morning dose today). Social Hx: Lives at home with , never smoked, no alcohol use, no street drugs. Family Hx: GF on father's side had colon cancer. Dad of aortic aneurysm rupture in 50s. HBP in Mom and Dad. Did not get flu shot. No recent sick contacts. No recent travel. ROS: Denies, CP, SOB, headaches, fevers, cough, sore throat. <Hyacinth Lira - 10/14/18 14:29> - Diagnosis (1) Weakness (2) Bandemia (3) Diarrhea (4) UTI (urinary tract infection) (5) Polypharmacy (6) Migraine (7) Colon adenocarcinoma (8) Afib (9) Panic attack (10) Muscle spasm (11) Arthritis (12) CKD (chronic kidney disease) stage 3, GFR 30-59 ml/min (13) DVT prophylaxis (14) Nutrition, metabolism, and development symptoms <Hina Villela - 10/14/18 20:36> (1) Weakness (2) Bandemia (3) Diarrhea (4) UTI (urinary tract infection) (5) Polypharmacy (6) Migraine (7) Colon adenocarcinoma (8) Afib (9) Panic attack (10) Muscle spasm (11) Arthritis (12) CKD (chronic kidney disease) stage 3, GFR 30-59 ml/min (13) DVT prophylaxis (14) Nutrition, metabolism, and development symptoms <Hyacinth Lira - 10/14/18 14:41> [facility] - History History Provided By: Patient <ShannonHyacinth acharya - 10/14/18 11:43> - Medical History Medical History: Medical History (Last Reviewed 10/14/18 @ 08:11 by Margaret Chou RN) Adenocarcinoma of colon Atrial fibrillation Chronic kidney disease, stage 3 Hx of hysterectomy Hx-TIA (transient ischemic attack) Hypertension Lupus <Hina Villela - 10/14/18 20:36> Medical History (Last Reviewed 10/14/18 @ 08:11 by Margaret Chou, NADIR) Adenocarcinoma of colon Atrial fibrillation Chronic kidney disease, stage 3 Hx of hysterectomy Hx-TIA (transient ischemic attack) Hypertension Lupus <Hyacinth Lira - 10/14/18 11:43> - Surgical History Surgical History: Surgical History (Last Reviewed 10/14/18 @ 08:11 by Margaret Chou RN) History of arthroplasty of left shoulder History of bilateral knee replacement Hx of appendectomy Hx of cholecystectomy Hx of hernia repair <Hina Villela - 10/14/18 20:36> Surgical History (Last Reviewed 10/14/18 @ 08:11 by Margaret Chou RN) History of arthroplasty of left shoulder History of bilateral knee replacement Hx of appendectomy Hx of cholecystectomy Hx of hernia repair <Hyacinth Lira - 10/14/18 11:43> - Family History Family History: Family History (Last Reviewed 10/09/18 @ 02:17 by Colette Mehta) Mother History of diabetes mellitus History of hypertension Father History of aneurysm History of hypertension History of heart disease <Hina Villela - 10/14/18 20:36> Family History (Last Reviewed 10/09/18 @ 02:17 by Colette Mehta) Mother History of diabetes mellitus History of hypertension Father History of aneurysm History of hypertension History of heart disease <Hyacinth Lira - 10/14/18 11:43> - Tobacco History Second Hand Smoke Exposure: Yes <Hyacinth Lira 10/14/18 11:43> Smoking Status: Never smoker <Hyacinth Lira 10/14/18 11:43> - Alcohol History How Often Do You Have a Drink Containing Alcohol: Never <Hycainth Lira - 11:43> - Substance Use History Substance History: No History of Abuse <Hyacinth Lira 10/14/18 11:43> - Travel History Recent Travel in the [facility] Within the Last 8 Weeks: No <Hyacinth Lira - 11:43> Recent Travel Out of the Country Within the Last 8 Weeks: No <Hyacinth Lira 10/14/18 11:43> - Immunization History Tetanus Immunization: Unsure <Hyacinth Lira - 10/14/18 11:43> Tetanus Immunization Year if Known: 2014 <Hyacinth Lira 10/14/18 11:43> Medications and Allergies Allergies Allergy/AdvReac Type Severity Reaction Status Date / Time azathioprine Allergy Severe Gastrointestinal Verified 11/29/18 08:15 Upset cephalexin Allergy Severe kidney Verified 10/14/18 08:15 failure Gadolinium-Containing Allergy Severe Blister Verified 10/14/18 08:15 Contrast Medi hydroxychloroquine Allergy Severe Weakness Verified 10/14/18 08:15 methotrexate Allergy Severe Gastrointestinal Verified 10/14/18 08:15 Upset Latex, Natural Rubber Allergy Intermediate Itching Verified 10/14/18 08:15 Sulfa (Sulfonamide Allergy Intermediate Nausea/Vomi Verified 10/14/18 08:15 Antibiotics) ting ceftriaxone AdvReac Severe HEADACHE/NA Verified 10/14/18 08:15 USEA adhesive AdvReac Intermediate Itching, Verified 10/14/18 08:15 Localized <Hina Villela 10/14/18 20:36> Home Medications Medication Instructions Recorded Confirmed Type alprazolam [Xanax] 0.5 mg PO BID PRN 06/08/18 10/14/18 History amitriptyline 25 mg PO DAILY 06/08/18 10/14/18 History diltiazem HCl 240 mg PO DAILY 06/08/18 10/14/18 History estradiol 1 tab PO DAILY 06/08/18 10/14/18 History ranitidine HCl [Zantac] 150 mg PO DAILY 06/08/18 10/14/18 History spironolactone 25 mg PO DAILY 06/08/18 10/14/18 History sumatriptan succinate [Imitrex] 50 mg PO Q2-4H PRN 06/08/18 10/14/18 History tizanidine 4 mg PO HS 06/08/18 10/14/18 History Ppiqgjme-Vkcmpalfz-Bioija 1 - 2 tsp PO ACHS 10/06/18 10/14/18 History metoclopramide HCl 10 mg PO TID 10/06/18 10/14/18 History morphine 15 mg PO Q12H 10/06/18 10/14/18 History ondansetron HCl [Zofran] 8 mg PO TID PRN 10/06/18 10/14/18 History hydrocodone-acetaminophen [[place]] 10 mg PO Q6HR PRN 10/07/18 10/14/18 History <Hina Villela 10/14/18 20:36> Active Medications: Active Medications Acetaminophen (Tylenol) 650 mg PO Q4H PRN PRN Reason: Temp > 100.4 Hydrocodone Bitart/Acetaminophen ([place] 10/325) 1 tab PO Q6HR PRN PRN Reason: PAIN SCALE 1 TO 10 Alprazolam (Xanax) 0.5 mg PO BID PRN PRN Reason: Anxiety Amitriptyline HCl (Elavil) 25 mg PO DAILY [facility] Diltiazem HCl (Cardizem Cd 24hr) 240 mg PO DAILY [facility] Estradiol (Estrace) 1 mg PO DAILY [facility] Famotidine (Pepcid) 10 mg PO BID [facility] Sodium Chloride (Ns Inj) 1,000 mls @ 125 mls/hr IV.CONT .Q8H [facility] Last Admin: 10/14/18 18:56 Dose: 125 mls/hr Metoclopramide HCl (Reglan) 10 mg PO TID [facility] Last Admin: 10/14/18 18:54 Dose: 10 mg Morphine Sulfate (Oramorph Sr) 15 mg PO Q12H [facility] Last Admin: 10/14/18 18:54 Dose: 15 mg Nitrofurantoin Macrocrystals (Macrobid) 100 mg PO BID [facility] Last Admin: 10/14/18 18:54 Dose: 100 mg Ondansetron HCl (Zofran Inj) 4 mg IV.PUSH Q6H PRN PRN Reason: NAUSEA OR VOMITING Rivaroxaban (Xarelto) 20 mg PO DAILY [facility] Sodium Chloride (Ns Flush) 2 ml IV.FLUSH PRN PRN PRN Reason: FLUSH AFTER USING IV ACCESS Sodium Chloride (Ns Flush) 2 ml IV.FLUSH BID [facility] Sodium Chloride (Ns Flush) 2 ml IV.FLUSH PRN PRN PRN Reason: FLUSH AFTER USING IV ACCESS Spironolactone (Aldactone) 25 mg PO DAILY [facility] Sumatriptan Succinate (Imitrex) 50 mg PO Q2H PRN PRN Reason: HEADACHE Tizanidine HCl (Zanaflex) 4 mg PO HS [facility] <Hina Villela R - 10/14/18 20:36> Active Medications Sodium Chloride (Ns Inj) 1,000 mls @ 1,000 mls/hr IV.SIG BOLUS [facility] Stop: 10/14/18 12:44 Sodium Chloride (Ns Flush) 2 ml IV.FLUSH PRN PRN PRN Reason: FLUSH AFTER USING IV ACCESS <Hyacinth Lira - 10/14/18 11:43> Exam Vital signs: Vital Signs 10/14/18 08:06 10/14/18 08:32 10/14/18 11:34 Temperature 97.9 F Pulse Rate 96 H 98 H 74 Respiratory Rate 14 19 Blood Pressure 98/66 L 117/74 107/65 Pulse Oximetry 92 L 95 10/14/18 13:39 10/14/18 16:00 Temperature 97.5 F L 97.8 F Pulse Rate 70 75 Respiratory Rate 20 20 Blood Pressure 120/69 111/59 L Pulse Oximetry 97 93 L Intake & Output 10/14/18 10/14/18 10/15/18 06:59 18:59 06:59 Intake Total 1999 Balance 1999 Weight 95.2 kg Intake: IV 1999 NS Inj 1,000 ML @ 1000 mls/hr 1999 IV.SIG BOLUS MICHELLE Rx#:[id number] Other: # Voids 1 Weight On Admission 95.2 kg <Hina Villela - 10/14/18 20:36> Vital Signs 10/14/18 08:06 10/14/18 08:32 Temperature 97.9 F Pulse Rate 96 H 98 H Respiratory Rate 14 Blood Pressure 98/66 L 117/74 Pulse Oximetry 92 L 95 Intake & Output 10/13/18 10/14/18 10/14/18 18:59 06:59 18:59 Intake Total 1000 / 1000 Balance 1000 1000 Weight 83.461 kg Intake: IV 1000 / 1000 NS Inj 1,000 ML @ Wide Open IV. 1000 / 1000 SIG BOLUS ONE Rx#:[id number] <ShannonantUmer dos santosa - 10/14/18 11:43> Narrative: GENERAL: Elderly female, lying comfortably in bed, in no acute distress. SKIN: Warm and dry. HEAD: Normocephalic. EYES: No scleral icterus. No injection or drainage. NECK: Supple, trachea midline. No JVD or lymphadenopathy. CARDIOVASCULAR: Regular rate and rhythm without murmurs, gallops, or rubs. RESPIRATORY: Breath sounds equal bilaterally. No accessory muscle use. GASTROINTESTINAL: Abdomen soft, tenderness to palpation in the periumbilical region. Bowel sounds present. MUSCULOSKELETAL: No cyanosis, or edema. BACK: Nontender without obvious deformity. No CVA tenderness. NEURO: Mental status: patient is alert, awake, and oriented to person, place and time. Speech is clear and fluent with good repetition, comprehension and naming. CN: 2-12 intact Motor: No pronator drift of out stretched arms. Muscle Bulk and tone are normal in the Upper and Lower Ext. Strength is 5/5 in Upper and Lower Extremity. Sensory: Sensation of light touch and pinprick present in the fingers and toes. Coordination: No dysmetria on finger to nose testing. Heel to resendez exam is normal. <Hyacinth Lira - 10/14/18 14:38> Results - Labs Result diagrams: 10/14/18 08:19 10/14/18 08:19 <Hina Villela - 10/14/18 20:36> Abnormal lab results 10/14/18 10/14/18 10/14/18 Range/Units 08:19 08:19 10:45 RDW 27.5 H (11.6-17.2) % Band Neuts % (Manual) 19 H (0-6) % Lymphocytes % (Manual) 4 L (9-44) % Myelocytes % (Man) 1 H (0-0) % Abs Neuts (Manual) 8.1 H (1.8-7.7) th/mm3 Toxic Granulation 2+ H (None) Toxic Vacuolation Present H (None) Ovalocytes 1+ H (None) Sodium 132 L (136-145) meq/L Carbon Dioxide 14.5 L (21.0-32.0) meq/L BUN 31 H (7-18) mg/dL Creatinine 1.91 H (0.50-1.00) mg/dL Estimated GFR 26 L (>89) mL/min Random Glucose 122 H (74-106) mg/dL Calcium 8.1 L (8.5-10.1) mg/dL AST 46 H (15-37) U/L Total Protein 6.2 L D (6.4-8.2) g/dL Albumin 1.7 L (3.4-5.0) g/dL Urine Clarity Cloudy H (Clear) Urine Protein 100 H (Neg-Trace) mg/dL Urine Bacteria Moderate H (None) /hpf Urine Mucus Few H (Occasional) /lpf Short CBC 11/29/18 Range/Units 08:19 WBC 8.9 (4.0-11.0) th/mm3 Hgb 13.0 (11.6-15.3) gm/dL Hct 39.4 (35.0-46.0) % Plt Count 240 D (150-450) th/mm3 BMP 10/14/18 08:19 Sodium 132 L Potassium 4.3 Chloride 103 Carbon Dioxide 14.5 L BUN 31 H Creatinine 1.91 H Calcium 8.1 L Liver Function 10/14/18 Range/Units 08:19 Total Bilirubin 0.5 (0.2-1.0) mg/dL AST 46 H (15-37) U/L ALT 18 (10-53) U/L Alkaline Phosphatase 107 (45-117) U/L Albumin 1.7 L (3.4-5.0) g/dL Urine 10/14/18 Range/Units 10:45 Urine Color Yellow (Yellw/Straw) Urine Clarity Cloudy H (Clear) Urine pH 5.0 (5.0-8.5) Ur Specific [place] 1.019 (1.002-1.035) Urine Protein 100 H (Neg-Trace) mg/dL Urine Glucose (UA) Negative (Negative) mg/dL <Hina Villela R - 10/14/18 20:36> Abnormal lab results 10/14/18 10/14/18 10/14/18 Range/Units 08:19 08:19 10:45 RDW 27.5 H (11.6-17.2) % Band Neuts % (Manual) 19 H (0-6) % Lymphocytes % (Manual) 4 L (9-44) % Myelocytes % (Man) 1 H (0-0) % Abs Neuts (Manual) 8.1 H (1.8-7.7) th/mm3 Toxic Granulation 2+ H (None) Toxic Vacuolation Present H (None) Ovalocytes 1+ H (None) Sodium 132 L (136-145) meq/L Carbon Dioxide 14.5 L (21.0-32.0) meq/L BUN 31 H (7-18) mg/dL Creatinine 1.91 H (0.50-1.00) mg/dL Estimated GFR 26 L (>89) mL/min Random Glucose 122 H (74-106) mg/dL Calcium 8.1 L (8.5-10.1) mg/dL AST 46 H (15-37) U/L Total Protein 6.2 L D (6.4-8.2) g/dL Albumin 1.7 L (3.4-5.0) g/dL Urine Clarity Cloudy H (Clear) Urine Protein 100 H (Neg-Trace) mg/dL Urine Bacteria Moderate H (None) /hpf Urine Mucus Few H (Occasional) /lpf Short CBC 10/14/18 Range/Units 08:19 WBC 8.9 (4.0-11.0) th/mm3 Hgb 13.0 (11.6-15.3) gm/dL Hct 39.4 (35.0-46.0) % Plt Count 240 D (150-450) th/mm3 BMP 10/14/18 08:19 Sodium 132 L Potassium 4.3 Chloride 103 Carbon Dioxide 14.5 L BUN 31 H Creatinine 1.91 H Calcium 8.1 L Liver Function 10/14/18 Range/Units 08:19 Total Bilirubin 0.5 (0.2-1.0) mg/dL AST 46 H (15-37) U/L ALT 18 (10-53) U/L Alkaline Phosphatase 107 (45-117) U/L Albumin 1.7 L (3.4-5.0) g/dL Urine 10/14/18 Range/Units 10:45 Urine Color Yellow (Yellw/Straw) Urine Clarity Cloudy H (Clear) Urine pH 5.0 (5.0-8.5) Ur Specific [place] 1.019 (1.002-1.035) Urine Protein 100 H (Neg-Trace) mg/dL Urine Glucose (UA) Negative (Negative) mg/dL <Hyacinth Lira - 10/14/18 11:43> - Imaging Impressions Chest X-Ray 10/14/18 11:33 CONCLUSION: 1. No acute cardiopulmonary findings. 2. Postsurgical changes as above. <Hina Villela - 10/14/18 20:36> Caprini VTE Risk Assessment Caprini VTE Risk Assessment: Moderate/High Risk (score >= 2) <Hyacinth Lira - 10/14/18 14:42> Caprini Risk Assessment Model: Point Value = 1 Point Value = 2 Point Value = 3 Point Value = 5 Age 41-60 Minor surgery BMI > 25 kg/m2 Swollen legs Varicose veins or History of unexplained or recurrent spontaneous Oral contraceptives or hormone replacement Sepsis (< 1 month) Serious lung disease, including pneumonia (< 1 month) Abnormal pulmonary function Acute myocardial infarction Congestive heart failure (< 1 month) History of inflammatory bowel disease Medical patient at bed rest Age 61-74 Arthroscopic surgery Major open surgery (> 45 min) Laparoscopic surgery (> 45 min) Malignancy Confined to bed (> 72 hours) Immobilizing plaster cast Central venous access Age >= 75 History of VTE Family history of VTE Factor V Leiden Prothrombin [id number] Lupus anticoagulant Anticardiolipin antibodies Elevated serum homocysteine Heparin-induced thrombocytopenia Other congenital or acquired thrombophilia Stroke (< 1 month) Elective arthroplasty Hip, pelvis, or leg fracture Acute spinal cord injury (< 1 month) <Hina Villela - 10/14/18 20:36> Point Value = 1 Point Value = 2 Point Value = 3 Point Value = 5 Age 41-60 Minor surgery BMI > 25 kg/m2 Swollen legs Varicose veins or History of unexplained or recurrent spontaneous Oral contraceptives or hormone replacement Sepsis (< 1 month) Serious lung disease, including pneumonia (< 1 month) Abnormal pulmonary function Acute myocardial infarction Congestive heart failure (< 1 month) History of inflammatory bowel disease Medical patient at bed rest Age 61-74 Arthroscopic surgery Major open surgery (> 45 min) Laparoscopic surgery (> 45 min) Malignancy Confined to bed (> 72 hours) Immobilizing plaster cast Central venous access Age >= 75 History of VTE Family history of VTE Factor V Leiden Prothrombin [id number] Lupus anticoagulant Anticardiolipin antibodies Elevated serum homocysteine Heparin-induced thrombocytopenia Other congenital or acquired thrombophilia Stroke (< 1 month) Elective arthroplasty Hip, pelvis, or leg fracture Acute spinal cord injury (< 1 month) <Hyacinth Lira - 10/14/18 14:42> Prophylaxis Regimen: Total Risk Factor Score Risk Level Prophylaxis Regimen 0-1 Low Early ambulation 2 Moderate Order ONE of the following: *Sequential Compression Device (SCD) *Heparin 5000 units SQ BID 3-4 Higher Order ONE of the following medications: *Heparin 5000 units SQ TID *Enoxaparin/Lovenox 40 mg SQ daily (WT < 150 kg, CrCl > 30 mL/min) *Enoxaparin/Lovenox 30 mg SQ daily (WT < 150 kg, CrCl > 10-29 mL/min) *Enoxaparin/Lovenox 30 mg SQ BID (WT < 150 kg, CrCl > 30 mL/min) AND/OR *Sequential Compression Device (SCD) 5 or more Highest Order ONE of the following medications: *Heparin 5000 units SQ TID (Preferred with Epidurals) *Enoxaparin/Lovenox 40 mg SQ daily (WT < 150 kg, CrCl > 30 mL/min) *Enoxaparin/Lovenox 30 mg SQ daily (WT < 150 kg, CrCl > 10-29 mL/min) *Enoxaparin/Lovenox 30 mg SQ BID (WT < 150 kg, CrCl > 30 mL/min) AND *Sequential Compression Device (SCD) <Hina Villela - 10/14/18 20:36> Total Risk Factor Score Risk Level Prophylaxis Regimen 0-1 Low Early ambulation 2 Moderate Order ONE of the following: *Sequential Compression Device (SCD) *Heparin 5000 units SQ BID 3-4 Higher Order ONE of the following medications: *Heparin 5000 units SQ TID *Enoxaparin/Lovenox 40 mg SQ daily (WT < 150 kg, CrCl > 30 mL/min) *Enoxaparin/Lovenox 30 mg SQ daily (WT < 150 kg, CrCl > 10-29 mL/min) *Enoxaparin/Lovenox 30 mg SQ BID (WT < 150 kg, CrCl > 30 mL/min) AND/OR *Sequential Compression Device (SCD) 5 or more Highest Order ONE of the following medications: *Heparin 5000 units SQ TID (Preferred with Epidurals) *Enoxaparin/Lovenox 40 mg SQ daily (WT < 150 kg, CrCl > 30 mL/min) *Enoxaparin/Lovenox 30 mg SQ daily (WT < 150 kg, CrCl > 10-29 mL/min) *Enoxaparin/Lovenox 30 mg SQ BID (WT < 150 kg, CrCl > 30 mL/min) AND *Sequential Compression Device (SCD) <Hyacinth Lira - 10/14/18 11:43> Assessment and Plan - Assessment (1) Weakness Code(s): R53.1 - Weakness Status: Acute (2) Bandemia Code(s): D72.825 - Bandemia Status: Acute (3) Diarrhea Code(s): R19.7 - Diarrhea, unspecified Status: Acute (4) UTI (urinary tract infection) Code(s): N39.0 - Urinary tract infection, site not specified Status: Acute (5) Polypharmacy Code(s): Z79.899 - Other superintendent container terminal (current) drug therapy Status: Acute (6) Migraine Code(s): G43.909 - Migraine, unspecified, not intractable, without status migrainosus Status: Acute (7) Colon adenocarcinoma Code(s): C18.9 - Malignant neoplasm of colon, unspecified Status: Acute (8) Afib Code(s): I48.91 - Unspecified atrial fibrillation Status: Acute (9) Panic attack Code(s): F41.0 - Panic disorder [episodic paroxysmal anxiety] Status: Acute (10) Muscle spasm Code(s): M62.838 - Other muscle spasm Status: Acute (11) Arthritis Code(s): M19.90 - Unspecified osteoarthritis, unspecified site Status: Acute (12) CKD (chronic kidney disease) stage 3, GFR 30-59 ml/min Code(s): N18.3 - Chronic kidney disease, stage 3 (moderate) Status: Acute (13) DVT prophylaxis Status: Acute (14) Nutrition, metabolism, and development symptoms Code(s): R63.8 - Other symptoms and signs concerning food and fluid intake Status: Acute <InaradhaHina - 10/14/18 20:36> (1) Weakness Code(s): R53.1 - Weakness Status: Acute Plan: Acute weakness of the quadriceps bilaterally and shoulder girdles while in the shower this morning. History of diarrhea with incontinence that started on . Currently on Macrobid for UTI treatment. DDX: Dehydration versus polypharmacy versus polymyositis versus vasovagal syncope versus Afib versus electrolyte abnormalities. -She confirms not adequately hydrating. Clinically improved with 1 L bolus in the ED. Continue on maintenance fluids. -PMH of lupus. Polymyositis workup to be worked up as outpatient. -Patient on multiple sedating drugs including morphine and Xanax. Concerning for polypharmacy and sedation. -CMP unremarkable for electrolyte abnormalities. Follow up in AM. -Telemetry. (2) Bandemia Code(s): D72.825 - Bandemia Status: Acute Plan: Patient with a white count of 8.9, though normal this may be masked by her chemotherapy. Increase in bands differential from 8 on 10/09 to 19 today. Concerning for underlying infection. CXRay Negative. UA shows moderate bacteria. On Macrobid. Cultures Pending. Vital signs stable. No concern for sepsis at this moment. Continue to monitor. (3) Diarrhea Code(s): R19.7 - Diarrhea, unspecified Status: Acute Plan: Diarrhea that started on 10/08 with incontinence. Unable to rehydrate appropriately. Mild LLQ pain. -Unsure if this is a complication from her previous colon surgeries vs infectious etiology from being immunosuppressed. -C. difficile ordered. Negative. -Hemoccult ordered. Stool cultures ordered. -Will consider imaging if patient does not clinically improve. (4) UTI (urinary tract infection) Code(s): N39.0 - Urinary tract infection, site not specified Status: Acute Plan: Patient admitted to [facility] on 10/06 was diagnosed with UTI and started on Levaquin 250 mg every 48 for 2 days. Discharged home on Macrobid for 5 days. -On last dose of Macrobid today. Will give dose today. -Urine cultures ordered. If positive will consider starting on Levaquin. (5) Polypharmacy Code(s): Z79.899 - Other detention (current) drug therapy Status: Acute Plan: Patient on multiple sedating drugs. Continue to monitor. (6) Migraine Code(s): G43.909 - Migraine, unspecified, not intractable, without status migrainosus Status: Acute Plan: Continue home amitriptyline. Sumatriptan as needed. (7) Colon adenocarcinoma Code(s): C18.9 - Malignant neoplasm of colon, unspecified Status: Acute Plan: Sees Dr. Estrella for chemotherapy. Stable. (8) Afib Code(s): I48.91 - Unspecified atrial fibrillation Status: Acute Plan: Continue diltiazem. Continue Xarelto. (9) Panic attack Code(s): F41.0 - Panic disorder [episodic paroxysmal anxiety] Status: Acute Plan: Continue Home Xanax as needed. (10) Muscle spasm Code(s): M62.838 - Other muscle spasm Status: Acute Plan: continue home tizanidine. (11) Arthritis Code(s): M19.90 - Unspecified osteoarthritis, unspecified site Status: Acute Plan: Continue home hydrocodone and morphine (12) CKD (chronic kidney disease) stage 3, GFR 30-59 ml/min Code(s): N18.3 - Chronic kidney disease, stage 3 (moderate) Status: Acute Plan: Cr: 1.91 1 Bolus NS given in ED Cont on Maintenance Fluids (13) DVT prophylaxis Status: Acute Plan: On Xarelto (14) Nutrition, metabolism, and development symptoms Code(s): R63.8 - Other symptoms and signs concerning food and fluid intake Status: Acute Plan: Fluids: Normal saline at 125 mls/hr Electrolytes: Monitor and replete as needed. Diet: Regular. Code: Full code <Hyacinth Lira - 10/14/18 14:41> - Assessment and Plan Discussed Condition With: Dr. Villela and Dr. Guerra <Hyacinth Lira - 10/14/18 14:37> - Attending Attestation PAtient seen and discussed with and examined with the resident team at the time of the admission. Agree with the assessment and plan as documented <Hina Villela - 10/14/18 20:36>
[2018-10-14] MEDS ORDERED: Sod Chloride 0.9% Inj 1,000 ML IV.SIG SCH (11:45)
--- NOTE | 2018-10-14 11:56 | XR ---
EXAM DATE: 10/14/2018 11:52 AM EST AGE/SEX: 68 years / Female INDICATIONS: Shortness of breath, diarrhea, and dehydration. CLINICAL DATA: This is the patient's initial encounter. Patient reports that signs and symptoms have been present for 3 days and indicates a pain score of 0/10. MEDICAL/SURGICAL HISTORY: Carcinoma, colon. . Chemotherapy. [place]PAR[place]: [facility] [place] 1[place] S[place], 10/06/2018. . FINDINGS: The cardiac and mediastinal contours are within normal limits. The visualized pulmonary parenchyma is clear. Note is made of a Loop recorder. The [id number] in good position. The patient is post left shoulder arthroplasty. CONCLUSION: 1. No acute cardiopulmonary findings. 2. Postsurgical changes as above. Electronically signed by: Flako Zheng MD 10/14/2018 11:55 AM EST
[2018-10-14] MEDS ORDERED: Acetaminophen 325 MG Tablet PO PRN (13:13)
[2018-10-14] MEDS ORDERED: Bisacodyl 10 MG Supp RECTAL PRN (13:13)
--- NOTE | 2018-10-14 17:27 | P.CONPAL ---
Consult Service: Palliative Care Requesting Physician: Hyacinth Lira Reason for Consult: a. To assist with evaluation and management of symptoms including: Pain, anxiety, generalized weakness, debility b. To assist medical decision maker(s) with: better understanding of current medical conditions; weighing benefits/burdens of medical treatment options; making medical treatment decisions. Primary Care Provider: Jase Dhillon DO History of Present Illness History of Present Illness: Mrs. Jay is a 68-year-old female with a medical history significant for colon cancer with metastases to the lymph nodes status post colon resection and on chemotherapy, lupus, atrial fibrillation, chronic kidney disease stage III, transient ischemic attack, hypertension, anxiety, arthritis, colitis, diverticulitis, diverticulosis, hemorrhoids and inflammatory bowel disease. Patient presented to the emergency room via [facility] on 10/14/18 for evaluation of weakness, and persistent diarrhea. Patient became very weak today when she was about to go into the shower and was not able to get up from a sitting position. She reported in the emergency room that she has been having diarrhea with fecal incontinence over the past few weeks. She is being currently treated for urinary tract infection as well. Patient's oncologist is Dr. Estrella. Patient was diagnosed with colon cancer in July 09, 2018 and she had chemotherapy October 03, 2018. ER course: * Vital signs: Temperature 97.9F, pulse 96, respirations 14, BP 98/66, O2 saturation 92% * Chest x-ray revealing no acute cardiopulmonary findings. * Laboratory workup revealed WBC 8.9, hemoglobin 13.0, hematocrit 39.4, platelet count 240, sodium 132, potassium 4.3, BUN/creatinine 31/1.91, random glucose 122, AST 46, ALT 18, total protein 6.2, albumin 1.7 * Urinalysis negative for leukocyte esterase and nitrates Palliative care consulted to assist with symptom management and establishment of goals of medical treatment. Patient seen and examined in the room. Patient is alert, oriented to self, place and situation. Patient appears to be able to weigh benefits and burdens of treatment. Introduced palliative care and his role in symptom management and establishment of goals of medical care. Obtained psychosocial, past medical history and events leading to this hospitalization. Patient states that she has completed advanced directives in the past and will ask her spouse to bring a copy of her advance directives. Per patient, her spouse Rell Jay is her healthcare surrogate and her daughter Jenny Mena is her alternate healthcare surrogate. Patient states that she did well with 2 cycles of chemotherapy and after the third chemotherapy treatment she has significantly deteriorated. Patient states that she has had increased weakness, diarrhea and he has generally been not feeling well. She states that in the past few weeks she has required assistance with almost all her activities of daily living. Patient is regretting having chemotherapy. She mentions that quality of life is very important to her and at this point she feels that chemotherapy has contributed to worsening of her quality of life. Patient mentioned that she does not want chemotherapy anymore and she has been researching on "Alkaline diet" which she intends to try to manage her colon cancer. She states that there is a family friend who has cancer and "is doing well on an alkaline diet". Addressed CODE STATUS, discussed CPR, introduced hospice philosophy and benefits. Patient states that she is interested in hospice but would like to discuss more regarding hospice option with her first. Palliative care will continue to follow and continue with discussions regarding hospice with the patient and her . Palliative care contact information provided. . Function/Cognitive Trajectory: Patient lives at home with her spouse and her daughter. Up until 3 weeks ago patient was independent of his ADLs. After receiving her third chemotherapy treatment patient has been increasingly getting weak and requiring assistance with all activities of daily living. She currently ambulates with a wheeled walker. She has been incontinent of stool due to persistent diarrhea for the past few weeks. Patient was diagnosed with colon cancer in July 09, 2018 and she received her last chemotherapy October 03, 2018. Patient has received 3 chemotherapy treatments. Patient was diagnosed with systemic lupus in 2006. She also has a long history of lupus nephritis. She has had previous skin melanoma excised in 2008. Review of Systems Constitutional: Reports fatigue, Reports lack of energy, Reports weakness Eyes: Reports blurry vision Ears, Nose, Mouth, and Throat: Reports difficulty swallowing, Reports poor balance, Reports sore throat (He has been using Magic mouthwash), Denies abnormal hearing, Denies tongue swelling Cardiovascular: Denies chest pain, Denies foot swelling, Denies leg swelling, Denies shortness of breath Respiratory: Denies chest congestion, Denies cough, Denies shortness of breath Gastrointestinal: Reports abdominal pain, Reports incontinent of stools, Reports loose stools, Reports pain with swallowing, Reports other (Left lower quadrant pain), Denies black, tarry stools, Denies bright, red blood in stools, Denies constipation, Denies nausea, Denies vomiting Genitourinary: Denies blood in urine, Denies urinary incontinence Musculoskeletal: Reports back pain, Reports muscle weakness, Reports neck pain, Denies tingling Skin/Breast: Denies dry skin, Denies unusual bruising Neurologic: Denies abnormal hearing, Denies confusion, Denies memory loss Psychiatric: Reports anxiety, Denies confusion, Denies memory loss Endocrine: Denies increased hunger, Denies increased urination Hematologic/Lymphatic: Reports easy bruising PMFSH - History History Provided By: Patient, Medical Record - Medical History Medical History: Medical History (Last Updated 10/14/18 @ 16:51 by Tyrell Villareal) Anxiety Diverticulitis Diverticulosis Hemorrhoids Kidney stones Uterine fibroid Adenocarcinoma of colon Atrial fibrillation Chronic kidney disease, stage 3 Hx-TIA (transient ischemic attack) Hypertension Lupus - Surgical History Surgical History: Surgical History (Last Updated 10/14/18 @ 16:53 by Tyrell Villareal) History of colonoscopy History of hysterectomy (Resolved) History of arthroplasty of left shoulder History of bilateral knee replacement Hx of appendectomy Hx of cholecystectomy Hx of hernia repair - Family History Family History: Family History (Last Updated 10/14/18 @ 16:55 by Tyrell Villareal) Mother History of hypertension History of diabetes mellitus Father History of aneurysm History of heart disease History of hypertension Grandparent Heart disease Colon cancer - Social History I have reviewed the patient's Social History: Yes - Tobacco History Second Hand Smoke Exposure: Yes Smoking Status: Never smoker - Substance Use History Substance History: No History of Abuse - Travel History Recent Travel in the [place] Within the Last 8 Weeks: No Recent Travel Out of the Country Within the Last 8 Weeks: No - Immunization History Tetanus Immunization: Unsure Tetanus Immunization Year if Known: 2014 Medications and Allergies Active Medications: Active Medications Acetaminophen (Tylenol) 650 mg PO Q4H PRN PRN Reason: Temp > 100.4 Hydrocodone Bitart/Acetaminophen ([place] 10/325) 1 tab PO Q6HR PRN PRN Reason: PAIN SCALE 1 TO 10 Alprazolam (Xanax) 0.5 mg PO BID PRN PRN Reason: Anxiety Amitriptyline HCl (Elavil) 25 mg PO DAILY [facility] Diltiazem HCl (Cardizem Cd 24hr) 240 mg PO DAILY [facility] Estradiol (Estrace) 1 mg PO DAILY [facility] Famotidine (Pepcid) 10 mg PO BID [facility] Sodium Chloride (Ns Inj) 1,000 mls @ 125 mls/hr IV.CONT .Q8H [facility] Metoclopramide HCl (Reglan) 10 mg PO TID [facility] Morphine Sulfate (Oramorph Sr) 15 mg PO Q12H [facility] Nitrofurantoin Macrocrystals (Macrobid) 100 mg PO BID [facility] Ondansetron HCl (Zofran Inj) 4 mg IV.PUSH Q6H PRN PRN Reason: NAUSEA OR VOMITING Rivaroxaban (Xarelto) 20 mg PO DAILY [facility] Sodium Chloride (Ns Flush) 2 ml IV.FLUSH PRN PRN PRN Reason: FLUSH AFTER USING IV ACCESS Sodium Chloride (Ns Flush) 2 ml IV.FLUSH BID [facility] Sodium Chloride (Ns Flush) 2 ml IV.FLUSH PRN PRN PRN Reason: FLUSH AFTER USING IV ACCESS Spironolactone (Aldactone) 25 mg PO DAILY [facility] Sumatriptan Succinate (Imitrex) 50 mg PO Q2H PRN PRN Reason: HEADACHE Tizanidine HCl (Zanaflex) 4 mg PO HS [facility] Allergies Allergy/AdvReac Type Severity Reaction Status Date / Time azathioprine Allergy Severe Gastrointestinal Verified 10/14/18 08:15 Upset cephalexin Allergy Severe kidney Verified 10/14/18 08:15 failure Gadolinium-Containing Allergy Severe Blister Verified 10/14/18 08:15 Contrast Medi hydroxychloroquine Allergy Severe Weakness Verified 10/14/18 08:15 methotrexate Allergy Severe Gastrointestinal Verified 10/14/18 08:15 Upset Latex, Natural Rubber Allergy Intermediate Itching Verified 10/14/18 08:15 Sulfa (Sulfonamide Allergy Intermediate Nausea/Vomi Verified 10/14/18 08:15 Antibiotics) ting ceftriaxone AdvReac Severe HEADACHE/NA Verified 10/14/18 08:15 USEA adhesive AdvReac Intermediate Itching, Verified 10/14/18 08:15 Localized Home Medications Medication Instructions Recorded Confirmed Type alprazolam [Xanax] 0.5 mg PO BID PRN 06/08/18 10/14/18 History amitriptyline 25 mg PO DAILY 06/08/18 10/14/18 History diltiazem HCl 240 mg PO DAILY 06/08/18 10/14/18 History estradiol 1 tab PO DAILY 06/08/18 10/14/18 History ranitidine HCl [Zantac] 150 mg PO DAILY 06/08/18 10/14/18 History spironolactone 25 mg PO DAILY 06/08/18 10/14/18 History sumatriptan succinate [Imitrex] 50 mg PO Q2-4H PRN 06/08/18 10/14/18 History tizanidine 4 mg PO HS 06/08/18 10/14/18 History Htvdjsra-Nhxeonlxw-Agzmmj 1 - 2 tsp PO ACHS 10/06/18 10/14/18 History metoclopramide HCl 10 mg PO TID 10/06/18 10/14/18 History morphine 15 mg PO Q12H 10/06/18 10/14/18 History ondansetron HCl [Zofran] 8 mg PO TID PRN 10/06/18 10/14/18 History hydrocodone-acetaminophen [[place]] 10 mg PO Q6HR PRN 10/07/18 10/14/18 History Advance Directives Living Will: Yes Healthcare Surrogate: Yes Health Care Surrogate Name and Number: HCS: Rell Jay HCS: Jenny Mena Today's verbally stated goals: Patient would like to get back to her baseline of being able to ambulate with a walker. She feels that she is dehydrated. Interested in further discussions regarding hospice. She is no longer interested in chemotherapy. . Family/friends goals: No family at bedside . Ethical and Legal Issues: None identified at this time . Physical Exam Vital Signs: Vital Signs - 24 hr 10/14/18 08:06 10/14/18 08:32 10/14/18 11:34 Temperature 97.9 F Pulse Rate 96 H 98 H 74 Respiratory Rate 14 19 Blood Pressure 98/66 L 117/74 107/65 Pulse Oximetry 92 L 95 10/14/18 13:39 10/14/18 16:00 Temperature 97.5 F L 97.8 F Pulse Rate 70 75 Respiratory Rate 20 20 Blood Pressure 120/69 111/59 L Pulse Oximetry 97 93 L I&O: Intake & Output 10/12/18 10/13/18 10/14/18 10/15/18 06:59 06:59 06:59 06:59 Intake Total 1999 Balance 1999 Weight 95.2 kg Physical Exam: CONSTITUTIONAL/GENERAL: This is an elderly patient, in no apparent distress. TUBES/LINES/DRAINS: SKIN: No jaundice, rashes, or lesions. Ecchymoses on upper extremities. No wounds seen anteriorly. Skin temperature appropriate. Not diaphoretic. HEAD: Atraumatic. Normocephalic. EYES: Pupils equal and round and reactive. Extraocular motions intact. No scleral icterus. No injection or drainage. Fundi not examined. ENT: Hearing grossly normal. Nose without bleeding or purulent drainage. Dry lips NECK: Trachea midline. Supple, nontender. CARDIOVASCULAR: Regular rate and rhythm without murmurs, gallops, or rubs. No JVD. Peripheral pulses symmetric. RESPIRATORY/CHEST: Symmetric, unlabored respirations. Clear to auscultation. Breath sounds equal bilaterally. No wheezes, rales, or rhonchi. GASTROINTESTINAL: Abdomen obese, soft, non-tender, distended. No guarding. Bowel sounds present. GENITOURINARY: Without palpable bladder distension. MUSCULOSKELETAL: Extremities without clubbing, cyanosis, or edema. No joint tenderness or effusion noted. No calf tenderness. No mottling or clubbing. LYMPHATICS: Did not assess NEUROLOGICAL: Awake and alert. Motor and sensory grossly within normal limits. Follows commands. Cognitively sharp. Moves all extremities. PSYCHIATRIC: No obvious anxiety/depression. no apparent hallucinations or other psychotic thought process. Diagnostic Tests Laboratory: Laboratory Results - last 72 hr 10/14/18 10/14/18 10/14/18 08:19 08:19 10:45 WBC 8.9 RBC 4.65 Hgb 13.0 Hct 39.4 MCV 84.7 MCH 27.9 MCHC 32.9 RDW 27.5 H Plt Count 240 D MPV 8.8 Prelim Diff (Auto) Manual diff required WBC Differential Manual diff final Seg Neuts % (Manual) 70 Band Neuts % (Manual) 19 H Lymphocytes % (Manual) 4 L Monocytes % (Manual) 5 Metamyelocytes % (Man) 1 Myelocytes % (Man) 1 H Abs Neuts (Manual) 8.1 H Differential Comment . Toxic Granulation 2+ H Toxic Vacuolation Present H Platelet Estimate Normal Platelet Morphology Normal Ovalocytes 1+ H Sodium 132 L Potassium 4.3 Chloride 103 Carbon Dioxide 14.5 L Anion Gap 15 BUN 31 H Creatinine 1.91 H Estimated GFR 26 L Random Glucose 122 H Calcium 8.1 L Total Bilirubin 0.5 AST 46 H ALT 18 Alkaline Phosphatase 107 Total Protein 6.2 L D Albumin 1.7 L Urine Color Yellow Urine Clarity Cloudy H Urine pH 5.0 Ur Specific [place] 1.019 Urine Protein 100 H Urine Glucose (UA) Negative Urine Ketones Negative Urine Occult Blood Negative Urine Nitrate Negative Urine Bilirubin Negative Urine Urobilinogen Less than 2 Ur Leukocyte Esterase Negative Urine RBC 1 Urine WBC 4 Ur Squamous Epith Cells 10 Urine Bacteria Moderate H Hyaline Casts 8 Urine Mucus Few H Ur Microscopic Review Not Reportable Result Diagrams: 10/15/18 04:57 10/15/18 04:57 Microbiology: Microbiology 10/14/18 11:56 Influenza Types A,B Antigen - Final Nasal Wash Negative for FLU A and B antigen Infection due to influenza A or B cannot be ruled out since the antigen present in the sample may be below the detection limit of the test. Imaging: Chest X-Ray 10/14/18 11:33 CONCLUSION: 1. No acute cardiopulmonary findings. 2. Postsurgical changes as above. Patient/Family Conference Family Conference Location: Bedside Issues Discussed: * Palliative care role, purpose, approach * Additional medical, psychosocial, and spiritual history * Patients general health, functional status, and cognitive changes in the months leading up to the current hospitalization * Patient/family understanding of the current medical problems * Patient/family understanding of prognosis * Patients goals of care as best understood from advance directives and/or conversations and/or values * Current medical treatment options and benefits/burdens of those options * Likely scenarios comparing ongoing aggressive care with a transition to comfort measures only * Questions answered to the best of my ability * Introduced hospice philosophy and benefits * Palliative care contact information provided Assessment and Plan - Disease Oriented Problem List (1) Diarrhea (2) Bandemia (3) CKD (chronic kidney disease) stage 3, GFR 30-59 ml/min (4) Colon adenocarcinoma (5) UTI (urinary tract infection) - Symptom Scale (1) Pain Comment: History of colon cancer currently on chemotherapy and history of arthritis (2) Anxiety 0-10 Scale: Unable to quantify Comment: History of anxiety. (3) Generalized weakness 0-10 Scale: Unable to quantify Comment: Patient is here diarrhea with incontinence for the past few weeks. Developed weakness on the day of presenting to the emergency room. (4) Debility 0-10 Scale: Unable to quantify Comment: Progressive. Patient has had multiple hospitalizations this year alone. Pertinent Non-Medical Issues: Psychosocial: Patient was born and raised in [place]. Patient was twice and once. She has been to her current Rell for the past 6 years. Patient has lived in [place] and [place] with her ex- . She is retired. She has 2 adult daughters Deja who resides in [place]-(estranged from her) and Jenny who currently resides with patient. 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 will bring in copies Ethical issues impacting care: None identified at this time. Important Contacts: Spouse-Rell Jay-[phone] Daughter-Jenny Mena [phone] Prognosis: Mrs. Jay is a 68-year-old female with a medical history significant for colon cancer with metastases to the lymph nodes status post colon resection and on chemotherapy, lupus, atrial fibrillation, chronic kidney disease stage III, transient ischemic attack, hypertension, anxiety, arthritis, colitis, diverticulitis, diverticulosis, hemorrhoids and inflammatory bowel disease. Patient presented to the emergency room on 10/14/18 for evaluation of weakness, and persistent diarrhea. Given patient's ongoing colon cancer with metastasis to the lymph nodes and progressive debility, patient will continue to have further complications, deterioration in decline. Patient is also mentioned that she does she no longer wants chemotherapy. If you goals are comfort oriented, patient would benefit from hospice services. Code Status: No Code DNR Plan: PLAN: Legal decision maker: Patient is alert and oriented x3. She is currently able to participate in making her own medical decisions. In the event that she is incapacitated, patient designated her spouse Rell Jay as her healthcare surrogate and her daughter Jenny Mena as her alternate healthcare surrogate. Goals: Aggressive short of no code. Patient states that she no longer wants chemotherapy and would like to try "Alkaline diet" to manage a colon cancer. It appears that quality of life matters most to patient and she states that her quality of life he has deteriorated since she received his third cycle of chemotherapy. Hospice was introduced and patient seems interested in transitioning to comfort care only through hospice but would like to to involve his spouse in the discussions. CODE STATUS: No code DNR SYMPTOMS: * Pain: Patient has history of colon adenocarcinoma with metastases to the lymph nodes and is currently on chemotherapy. She also has history of arthritis. Hydrocodone/acetaminophen 10/325 every 6 hours prn available. Patient is also on morphine sulfate ER 15 mg p.o. every 12hrs. Medication appear adequate at this time. * Anxiety: History of anxiety. Patient is on Xanax 0.5 mg p.o. twice daily. No recommendations at this time * Generalized weakness: Patient is currently on chemotherapy. She has had diarrhea for the past few weeks with incontinence. Most likely dehydrated. * Debility: Progressive. Patient has had multiple hospitalizations this year. Palliative care will continue to follow the patient during hospital course as condition evolves, to assist patient/decision-maker with understanding of their medical conditions, weighing benefits/burdens of treatment options, for clarification of goals of treatment. Additionally will assist with any symptoms of palliative concern Appreciation Thank you for the opportunity to participate in the care of Cheryl Jay. Attestation Attestation: To help prompt me to consider important information that might be impacting today's encounter and assessment, information from prior notes written by myself or my colleagues may have been "brought forward" into today's note. My signature on this note, however, is an attestation that I personally performed the exam, history, and/or decision-making noted today, and, unless otherwise indicated, the interactions with patient, family, and staff as well as the review of records all occurred today. I also attest that the listed assessment and stated plan reflect my best clinical judgment today based on the combination of historical information, prior notes, and today's exam/ interactions. When time spent is documented, it refers only to time spent today by the signer, or if indicated, combined time spent today by collaborating physician/nurse practitioner.
[2018-10-14] MEDS: Morphine Sulfate 15 MG SR Tablet PO SCH (18:54)
[2018-10-14] MEDS: Nitrofurantoin Monohydrate-Macrocrystal 100 MG Capsule PO SCH ×2 (18:54→22:01)
[2018-10-14] MEDS: Metoclopramide 10 MG Tablet PO SCH (18:54)
[2018-10-14] MEDS: Sod Chloride 0.9% Inj 1,000 ML IV.CONT SCH ×2 (18:56→22:02)
[2018-10-14] MEDS ORDERED: Senna/Docusate Sodium 8.6/50 MG Tablet PO SCH (21:00)
[2018-10-15] MEDS: Famotidine 20 MG Tablet PO SCH ×5 (00:27→20:31)
[2018-10-15] MEDS: Morphine Sulfate 15 MG SR Tablet PO SCH ×2 (03:02→14:00)
[2018-10-15] MEDS: Sod Chloride 0.9% Inj 1,000 ML IV.CONT SCH ×2 (03:04→06:44)
[2018-10-15 06:10] LABS: Baso % (Auto) 0.1 % (0.0-2.0); Eos % (Auto) 0.1 % (0.0-4.0); Hematocrit 32.2 % (35.0-46.0); Hemoglobin 10.7 gm/dL (11.6-15.3); Lymph # (Auto) 0.6 th/mm3 (1.0-4.8); Mean Corpuscular HGB Conc 33.4 % (32.0-36.0); Mean Corpuscular Hemoglobin 27.5 pg (27.0-34.0); Mean Corpuscular Volume 82.4 fL (80.0-100.0); Mean Platelet Volume 8.6 fL (7.0-11.0); Mono # (Auto) 0.5 th/mm3 (0.0-0.9); Mono % (Auto) 7.6 % (0.0-8.0); Neut % (Auto) 84.2 % (16.0-70.0); Platelet Count 249 th/mm3 (150-450); Red Cell Distribution Width 27.2 % (11.6-17.2); White Blood Count 7.1 th/mm3 (4.0-11.0)
[2018-10-15 06:40] LABS: Albumin 1.5 g/dL (3.4-5.0); Calcium 7.3 mg/dL (8.5-10.1); Total Protein 4.8 g/dL (6.4-8.2)
[2018-10-15 06:41] LABS: Potassium 2.4 meq/L (3.5-5.1)
[2018-10-15 07:05] LABS: Lymphocytes 2 % (9-44); Metamyelocytes 2 % (0-1); Monocytes 2 % (0-8); Platelet Estimate Normal (Normal); Platelet Morphology Normal (Normal)
[2018-10-15 07:06] LABS: Toxic Granulation 1+
[2018-10-15] MEDS ORDERED: Loperamide 2 MG Capsule PO PRN (08:45)
[2018-10-15] MEDS: dilTIAZem CD 240 MG Capsule PO SCH (09:24)
[2018-10-15] MEDS: ALPRAZolam 0.5 MG Tablet PO PRN ×2 (09:25→20:26)
[2018-10-15] MEDS: Spironolactone 25 MG Tablet PO SCH (09:25)
[2018-10-15] MEDS: Rivaroxaban 20 MG Tablet PO SCH (09:25)
[2018-10-15] MEDS: Estradiol 1 MG Tablet PO SCH (09:25)
[2018-10-15] MEDS: Metoclopramide 10 MG Tablet PO SCH ×3 (09:25→17:40)
[2018-10-15] MEDS: Amitriptyline 25 MG Tablet PO SCH (09:26)
--- NOTE | 2018-10-15 11:11 | P.PNFP ---
Subjective Interval history: No acute events overnight. Patient's vital signs were stable. Patient states she feels significantly better this morning and reports only mild abdominal pain. Patient had a conversation with palliative care and is interested in hospice at this time, however she would like to speak with her spouse first. She states that her diarrhea has improved as well and she had been taking Imodium at home prior to coming in. She does complain of soreness in her mouth and states that she has been using nystatin swish and swallow at home and is requesting that today. Otherwise she states her pain is well controlled and has no other complaints. <Scott Guerra B - 10/15/18 14:22> Results - Labs Result diagrams: 10/15/18 04:57 10/15/18 13:25 <Hina Villela - 10/16/18 09:14> Abnormal lab results 10/15/18 Range/Units 13:25 Potassium 3.2 L D (3.5-5.1) meq/L BMP 10/15/18 13:25 Potassium 3.2 L D <Hina Villela - 10/16/18 09:14> Abnormal lab results 10/15/18 10/15/18 Range/Units 04:57 04:57 RBC 3.90 L (4.00-5.30) mil/mm3 Hgb 10.7 L D (11.6-15.3) gm/dL Hct 32.2 L (35.0-46.0) % RDW 27.2 H (11.6-17.2) % Neut % (Auto) 84.2 H (16.0-70.0) % Lymph % (Auto) 8.0 L (9.0-44.0) % Lymph # (Auto) 0.6 L (1.0-4.8) th/mm3 Band Neuts % (Manual) 39 H (0-6) % Lymphocytes % (Manual) 2 L (9-44) % Metamyelocytes % (Man) 2 H (0-1) % Toxic Granulation 1+ H (None) Potassium 2.4 L* D (3.5-5.1) meq/L Carbon Dioxide 20.0 L (21.0-32.0) meq/L BUN 33 H (7-18) mg/dL Creatinine 1.38 H (0.50-1.00) mg/dL Estimated GFR 38 L (>89) mL/min Calcium 7.3 L* D (8.5-10.1) mg/dL Total Protein 4.8 L D (6.4-8.2) g/dL Albumin 1.5 L (3.4-5.0) g/dL Short CBC 10/15/18 Range/Units 04:57 WBC 7.1 (4.0-11.0) th/mm3 Hgb 10.7 L D (11.6-15.3) gm/dL Hct 32.2 L (35.0-46.0) % Plt Count 249 (150-450) th/mm3 BMP 10/15/18 04:57 Sodium 136 Potassium 2.4 L* D Chloride 107 Carbon Dioxide 20.0 L BUN 33 H Creatinine 1.38 H Calcium 7.3 L* D Liver Function 10/15/18 Range/Units 04:57 Total Bilirubin 0.4 (0.2-1.0) mg/dL AST 20 (15-37) U/L ALT 15 (10-53) U/L Alkaline Phosphatase 95 (45-117) U/L Albumin 1.5 L (3.4-5.0) g/dL <Scott Guerra - 10/15/18 11:11> - Imaging Impressions Chest X-Ray 10/14/18 11:33 CONCLUSION: 1. No acute cardiopulmonary findings. 2. Postsurgical changes as above. <Scott Guerra - 10/15/18 11:11> Physical Exam Vital signs: Vital Signs 10/15/18 12:00 10/15/18 16:00 10/15/18 20:00 Temperature 98.1 F 97.9 F 98 F Pulse Rate 85 90 95 H Respiratory Rate 18 20 18 Blood Pressure 110/73 112/80 134/92 H Pulse Oximetry 92 L 90 L 91 L 10/16/18 00:00 10/16/18 04:00 10/16/18 08:00 Temperature 98.1 F 97.9 F 97.8 F Pulse Rate 88 117 H 129 H Respiratory Rate 18 18 20 Blood Pressure 132/87 116/88 123/85 Pulse Oximetry 92 L 91 L 91 L Intake & Output 10/15/18 10/16/18 10/16/18 18:59 06:59 18:59 Intake Total 2000 / 2000 1000 / 1000 Balance 1999 1000 / 1000 Weight 96.9 kg Intake: IV 1999 / 1000 NS + KCl 20 mEq Inj 1,000 ML @ 1000 / 1000 1000 / 1000 100 mls/hr IV.CONT .Q10H MICHELLE Rx #:[id number] NS Inj 1,000 ML @ 125 mls/hr IV 1000 / 1000 .CONT .Q8H MICHELLE Rx#:[id number] Other: # Voids 2 7 <Hina Villela R - 10/16/18 09:14> Vital Signs 10/14/18 11:34 10/14/18 13:39 10/14/18 16:00 Temperature 97.5 F L 97.8 F Pulse Rate 74 70 75 Respiratory Rate 19 20 20 Blood Pressure 107/65 120/69 111/59 L Pulse Oximetry 97 93 L 10/14/18 20:00 10/14/18 21:30 10/15/18 00:00 Temperature 97.8 F 98 F Pulse Rate 77 81 79 Respiratory Rate 18 20 Blood Pressure 110/64 121/69 Pulse Oximetry 95 95 10/15/18 02:53 10/15/18 04:00 10/15/18 08:00 Temperature 97.3 F L 97.8 F Pulse Rate 79 85 Respiratory Rate 16 18 18 Blood Pressure 105/79 110/68 Pulse Oximetry 93 L 92 L Intake & Output 10/14/18 10/15/18 10/15/18 18:59 06:59 18:59 Intake Total 1999 1000 / 1000 1000 / 1000 Balance 1999 1000 / 1000 1000 / 1000 Weight 95.2 kg 96.9 kg Intake: IV 1999 / 999 1000 / 1000 NS Inj 1,000 ML @ 125 mls/hr IV 1000 / 999 1000 / 1000 .CONT .Q8H MICHELLE Rx#:[id number] NS Inj 1,000 ML @ 1000 mls/hr 1999 IV.SIG BOLUS MICHELLE Rx#:[id number] Other: # Voids 1 2 Weight On Admission 95.2 kg <Scott Guerra - 10/15/18 11:11> Narrative: GENERAL: Elderly female, lying comfortably in bed, in no acute distress. SKIN: Warm and dry. HEAD: Normocephalic. EYES: No scleral icterus. No injection or drainage. NECK: Supple, trachea midline. No JVD or lymphadenopathy. CARDIOVASCULAR: Regular rate and rhythm without murmurs, gallops, or rubs. RESPIRATORY: Breath sounds equal bilaterally. No accessory muscle use. GASTROINTESTINAL: Abdomen soft, mild tenderness to palpation diffusely. Bowel sounds present. MUSCULOSKELETAL: No cyanosis, or edema. BACK: Nontender without obvious deformity. No CVA tenderness. NEURO: Mental status: patient is alert, awake, and oriented to person, place and time. Speech is clear and fluent with good repetition, comprehension and naming. CN: 2-12 grossly intact <GuerraScott B - 10/15/18 14:22> Assessment and Plan - Assessment (1) Weakness Code(s): R53.1 - Weakness Status: Acute (2) Bandemia Code(s): D72.825 - Bandemia Status: Acute (3) Diarrhea Code(s): R19.7 - Diarrhea, unspecified Status: Acute (4) UTI (urinary tract infection) Code(s): N39.0 - Urinary tract infection, site not specified Status: Acute (5) Polypharmacy Code(s): Z79.899 - Other fpc (current) drug therapy Status: Acute (6) Migraine Code(s): G43.909 - Migraine, unspecified, not intractable, without status migrainosus Status: Acute (7) Colon adenocarcinoma Code(s): C18.9 - Malignant neoplasm of colon, unspecified Status: Acute (8) Afib Code(s): I48.91 - Unspecified atrial fibrillation Status: Acute (9) Panic attack Code(s): F41.0 - Panic disorder [episodic paroxysmal anxiety] Status: Acute (10) Muscle spasm Code(s): M62.838 - Other muscle spasm Status: Acute (11) Arthritis Code(s): M19.90 - Unspecified osteoarthritis, unspecified site Status: Acute (12) CKD (chronic kidney disease) stage 3, GFR 30-59 ml/min Code(s): N18.3 - Chronic kidney disease, stage 3 (moderate) Status: Acute (13) DVT prophylaxis Status: Acute (14) Nutrition, metabolism, and development symptoms Code(s): R63.8 - Other symptoms and signs concerning food and fluid intake Status: Acute <Hina Villela - 10/16/18 09:14> (1) Weakness Code(s): R53.1 - Weakness Status: Acute Plan: Acute weakness of the quadriceps bilaterally and shoulder girdles while in the shower this morning. History of diarrhea with incontinence that started on . Currently on Macrobid for UTI treatment. DDX: Dehydration versus polypharmacy versus polymyositis versus vasovagal syncope versus Afib versus electrolyte abnormalities versus overall decline secondary to her chronic medical conditions. -She confirms not adequately hydrating. Clinically improved with 1 L bolus in the ED. Continue on maintenance fluids. -PMH of lupus. Consider polymyositis workup to be worked up as outpatient. -CMP unremarkable for electrolyte abnormalities on admission. Found to be hypokalemic on day 2 of hospitalization -Palliative care was consulted on admission and patient is electing to go on hospice and does not desire any further chemotherapy. (2) Bandemia Code(s): D72.825 - Bandemia Status: Acute Plan: Patient with a white count of 8.9, though normal this may be masked by her chemotherapy. Increase in bands differential from 19-39 today. CXRay Negative. UA shows moderate bacteria. On Macrobid. Cultures Pending. No further signs of infection clinically Patient overall improving clinically, suspect abnormal CBC to be secondary to her recent chemo treatment versus overall progression of her malignancy Palliative care consulted and has subsequently consulted hospice (3) Diarrhea Code(s): R19.7 - Diarrhea, unspecified Status: Acute Plan: Diarrhea that started on 10/08 with incontinence. Unable to rehydrate appropriately. Mild LLQ pain. -Unsure if this is a complication from her previous colon surgeries vs infectious etiology from being immunosuppressed versus side effect of chemotherapy. -C. difficile ordered. -Hemoccult ordered. Stool cultures ordered. -Patient states her diarrhea is improved on day 2 of hospitalization, has been on Imodium at home Restarting Imodium today (4) UTI (urinary tract infection) Code(s): N39.0 - Urinary tract infection, site not specified Status: Acute Plan: Patient admitted to [place] on 10/06 was diagnosed with UTI and started on Levaquin 250 mg every 48 for 2 days. Discharged home on Macrobid for 5 days. -On last dose of Macrobid on day of admission -Urine cultures ordered. If positive will consider starting on Levaquin. (5) Polypharmacy Code(s): Z79.899 - Other terminal superintendent (current) drug therapy Status: Acute Plan: Patient on multiple sedating drugs. Continue to monitor. (6) Migraine Code(s): G43.909 - Migraine, unspecified, not intractable, without status migrainosus Status: Acute Plan: Continue home amitriptyline. Sumatriptan as needed. (7) Colon adenocarcinoma Code(s): C18.9 - Malignant neoplasm of colon, unspecified Status: Acute Plan: Sees Dr. Estrella for chemotherapy. Patient has expressed that she no longer desires chemotherapy and is electing to go on hospice (8) Afib Code(s): I48.91 - Unspecified atrial fibrillation Status: Acute Plan: Continue diltiazem. Continue Xarelto. (9) Panic attack Code(s): F41.0 - Panic disorder [episodic paroxysmal anxiety] Status: Acute Plan: Continue Home Xanax as needed. (10) Muscle spasm Code(s): M62.838 - Other muscle spasm Status: Acute Plan: continue home tizanidine. (11) Arthritis Code(s): M19.90 - Unspecified osteoarthritis, unspecified site Status: Acute Plan: Continue home hydrocodone and morphine (12) CKD (chronic kidney disease) stage 3, GFR 30-59 ml/min Code(s): N18.3 - Chronic kidney disease, stage 3 (moderate) Status: Acute Plan: Cr: 1.91, improved to 1.38 1 Bolus NS given in ED Cont on Maintenance Fluids (13) DVT prophylaxis Status: Acute Plan: On Xarelto (14) Nutrition, metabolism, and development symptoms Code(s): R63.8 - Other symptoms and signs concerning food and fluid intake Status: Acute Plan: Fluids: Normal saline at 125 mls/hr Electrolytes: Hypokalemia noted on day 2 of hospitalization with a potassium of 2.4, replaced with 40 mEq p.o. and added 20 mEq were IV fluids, repeat potassium pending Diet: Regular. Code: Full code <Scott Guerra - 10/15/18 14:04> - Assessment and Plan 68-year-old female with multiple medical conditions including adenocarcinoma of the colon, A. fib, hypertension, lupus, CKD stage III presented to the emergency room with complaints of weakness. Found to have bandemia on initial CBC and was admitted for further workup. Initial infectious workup was otherwise negative and patient was started on IV fluids as she was suspected to be dehydrated secondary to diarrhea. Patient symptomatically improved on day 2 of hospitalization. Palliative care was consulted on admission and patient has been entertaining to go on hospice and is expressed no desire for further chemotherapy. Medically, patient is stable. Disposition: Patient considering hospice <Scott Guerra - 10/15/18 14:22> - Attending Attestation The exam, history, and the medical decision-making described in the above note were completed with the assistance of the resident physician. I reviewed and agree with the findings presented. I attest that I had a [id number] encounter with the patient on the same day, and personally performed and documented my assessment and findings in the medical record. <Hina Villela - 10/16/18 09:14>
[2018-10-15] MEDS: Nystatin/Diphenhydramine/Lidocaine Mouthwash (Adult) 120 ML Botttle SWISH-SWAL SCH ×3 (13:04→20:22)
--- NOTE | 2018-10-15 13:15 | P.PNPAL ---
Reason for Visit Reason for visit: a. To assist with evaluation and management of symptoms including: Pain, anxiety, generalized weakness, debility b. To assist medical decision maker(s) with: better understanding of current medical conditions; weighing benefits/burdens of medical treatment options; making medical treatment decisions. Subjective Subjective/Interval History: Follow-up medically necessary for symptom management and further clarification of goals of medical treatment. Patient seen and examined in the room. Patient is awake, alert, oriented to self, place and situation. Patient is complaining of having acid reflux and discomfort in her mouth. Patient states that she has been using Magic mouthwash to help soothe her mouth. Magic mouthwash ordered. She is also endorsing discomfort to the abdomen. Patient recently requested bedpan but did not move her bowels. Laboratory workup revealing WBC 7.1, hemoglobin 10.7, hematocrit 32.2, platelet count 249, sodium 136, potassium 2.4, BUN/creatinine 33/1.3, total protein 4.8, albumin 1.5. Patient mentioned that she is interested in transitioning to comfort care only through hospice services and has requested that hospice consult be placed. Patient`s spouse currently not in room. Patient stated to go ahead and put in the consult and requested that her be present during the time that she signs up for hospice. Patient signed a [facility] DNR. Hard copy placed on chart and a copy faxed to HIM to be added to patient`s electronic medical records. Patient stated that her spouse will bring copies of advance directives today. Hospice consulted. . Family/Friend Interactions: No family at bedside. . Advance Directives Living Will: Completed, but not made available Health Care Surrogate: Completed, but not made available Health Care Surrogate Name and Number: HCS: Rell Jay HCS: Jenny Mena Significant change in goals:: Hospice consulted per patient's request. . Objective Vital Signs: Vital Signs 10/14/18 13:39 10/14/18 16:00 10/14/18 20:00 Temperature 97.5 F L 97.8 F 97.8 F Pulse Rate 70 75 77 Respiratory Rate 20 20 18 Blood Pressure 120/69 111/59 L 110/64 Pulse Oximetry 97 93 L 95 10/14/18 21:30 10/15/18 00:00 10/15/18 02:53 Temperature 98 F Pulse Rate 81 79 Respiratory Rate 20 16 Blood Pressure 121/69 Pulse Oximetry 95 10/15/18 04:00 10/15/18 08:00 10/15/18 12:00 Temperature 97.3 F L 97.8 F 98.1 F Pulse Rate 79 85 85 Respiratory Rate 18 18 18 Blood Pressure 105/79 110/68 110/73 Pulse Oximetry 93 L 92 L 92 L Intake & Output 10/14/18 10/15/18 10/15/18 18:59 06:59 18:59 Intake Total 1999 / 999 1000 / 1000 Balance 1999 1000 / 1000 Weight 95.2 kg 96.9 kg Intake: IV 1999 1000 / 1000 NS Inj 1,000 ML @ 125 mls/hr IV 999 / 999 .CONT .Q8H MICHELLE Rx#:[id number] NS Inj 1,000 ML @ 1000 mls/hr 1999 IV.SIG BOLUS MICHELLE Rx#:[id number] Other: # Voids 1 2 Weight On Admission 95.2 kg Physical Exam: CONSTITUTIONAL/GENERAL: This is an elderly patient, in no apparent distress. TUBES/LINES/DRAINS:PIV SKIN: No jaundice, rashes, or lesions. Ecchymoses on upper extremities. No wounds seen anteriorly. Skin temperature appropriate. Not diaphoretic. HEAD: Atraumatic. Normocephalic. EYES: Pupils equal and round and reactive. Extraocular motions intact. No scleral icterus. No injection or drainage. Fundi not examined. ENT: Hearing grossly normal. Nose without bleeding or purulent drainage. Dry lips NECK: Trachea midline. Supple, nontender. CARDIOVASCULAR: Regular rate and rhythm without murmurs, gallops, or rubs. No JVD. Peripheral pulses symmetric. RESPIRATORY/CHEST: Symmetric, unlabored respirations. Clear to auscultation. Breath sounds equal bilaterally. No wheezes, rales, or rhonchi. GASTROINTESTINAL: Abdomen obese, slightly firm, slightly tender, distended. No guarding. Bowel sounds present. GENITOURINARY: Without palpable bladder distension. MUSCULOSKELETAL: Extremities without clubbing, cyanosis, or edema. No joint tenderness or effusion noted. No calf tenderness. No mottling or clubbing. LYMPHATICS: Did not assess NEUROLOGICAL: Awake and alert. Motor and sensory grossly within normal limits. Follows commands. Cognitively sharp. Moves all extremities. PSYCHIATRIC: No obvious anxiety/depression. no apparent hallucinations or other psychotic thought process. Diagnostic Tests Laboratory: Laboratory Results - last 72 hr 10/14/18 10/14/18 10/14/18 08:19 08:19 10:45 WBC 8.9 RBC 4.65 Hgb 13.0 Hct 39.4 MCV 84.7 MCH 27.9 MCHC 32.9 RDW 27.5 H Plt Count 240 D MPV 8.8 Prelim Diff (Auto) Manual diff required Neut % (Auto) Lymph % (Auto) Woodruff % (Auto) Eos % (Auto) Baso % (Auto) Neut # (Auto) Lymph # (Auto) Woodruff # (Auto) Eos # (Auto) Baso # (Auto) WBC Differential Manual diff final Seg Neuts % (Manual) 70 Band Neuts % (Manual) 19 H Lymphocytes % (Manual) 4 L Monocytes % (Manual) 5 Metamyelocytes % (Man) 1 Myelocytes % (Man) 1 H Abs Neuts (Manual) 8.1 H Differential Comment . Toxic Granulation 2+ H Toxic Vacuolation Present H Platelet Estimate Normal Platelet Morphology Normal Ovalocytes 1+ H Sodium 132 L Potassium 4.3 Chloride 103 Carbon Dioxide 14.5 L Anion Gap 15 BUN 31 H Creatinine 1.91 H Estimated GFR 26 L Random Glucose 122 H Calcium 8.1 L Calcium Adj for Albumin Total Bilirubin 0.5 AST 46 H ALT 18 Alkaline Phosphatase 107 Total Protein 6.2 L D Albumin 1.7 L Urine Color Yellow Urine Clarity Cloudy H Urine pH 5.0 Ur Specific Drury 1.019 Urine Protein 100 H Urine Glucose (UA) Negative Urine Ketones Negative Urine Occult Blood Negative Urine Nitrate Negative Urine Bilirubin Negative Urine Urobilinogen Less than 2 Ur Leukocyte Esterase Negative Urine RBC 1 Urine WBC 4 Ur Squamous Epith Cells 10 Urine Bacteria Moderate H Hyaline Casts 8 Urine Mucus Few H Ur Microscopic Review Not Reportable 10/15/18 10/15/18 04:57 04:57 WBC 7.1 RBC 3.90 L Hgb 10.7 L D Hct 32.2 L MCV 82.4 MCH 27.5 MCHC 33.4 RDW 27.2 H Plt Count 249 MPV 8.6 Prelim Diff (Auto) Slide review pending Neut % (Auto) 84.2 H Lymph % (Auto) 8.0 L Woodruff % (Auto) 7.6 Eos % (Auto) 0.1 Baso % (Auto) 0.1 Neut # (Auto) 6.0 Lymph # (Auto) 0.6 L Woodruff # (Auto) 0.5 Eos # (Auto) 0.0 Baso # (Auto) 0.0 WBC Differential Manual diff final Seg Neuts % (Manual) 55 Band Neuts % (Manual) 39 H Lymphocytes % (Manual) 2 L Monocytes % (Manual) 2 Metamyelocytes % (Man) 2 H Myelocytes % (Man) Abs Neuts (Manual) 6.8 Differential Comment . Toxic Granulation 1+ H Toxic Vacuolation Platelet Estimate Normal Platelet Morphology Normal Ovalocytes Sodium 136 Potassium 2.4 L* D Chloride 107 Carbon Dioxide 20.0 L Anion Gap 9 BUN 33 H Creatinine 1.38 H Estimated GFR 38 L Random Glucose 94 Calcium 7.3 L* D Calcium Adj for Albumin 8.6 Total Bilirubin 0.4 AST 20 ALT 15 Alkaline Phosphatase 95 Total Protein 4.8 L D Albumin 1.5 L Urine Color Urine Clarity Urine pH Ur Specific Drury Urine Protein Urine Glucose (UA) Urine Ketones Urine Occult Blood Urine Nitrate Urine Bilirubin Urine Urobilinogen Ur Leukocyte Esterase Urine RBC Urine WBC Ur Squamous Epith Cells Urine Bacteria Hyaline Casts Urine Mucus Ur Microscopic Review Result Diagrams: 10/16/18 10:18 10/16/18 10:18 Microbiology: Microbiology 10/14/18 11:50 Aerobic Blood Culture - Preliminary Blood - Peripheral No growth in 1 day Anaerobic Blood Culture - Preliminary No growth in 1 day 10/14/18 11:55 Aerobic Blood Culture - Preliminary Blood - Peripheral No growth in 1 day Anaerobic Blood Culture - Preliminary No growth in 1 day 10/14/18 11:56 Influenza Types A,B Antigen - Final Nasal Wash Negative for FLU A and B antigen Infection due to influenza A or B cannot be ruled out since the antigen present in the sample may be below the detection limit of the test. Imaging: Chest X-Ray 10/14/18 11:33 CONCLUSION: 1. No acute cardiopulmonary findings. 2. Postsurgical changes as above. Assessment and Plan - Symptom Scale (1) Pain 0-10 Scale: Unable to quantify Comment: History of colon cancer currently on chemotherapy and history of arthritis (2) Anxiety 0-10 Scale: Unable to quantify Comment: History of anxiety. (3) Generalized weakness 0-10 Scale: Unable to quantify Comment: Patient is here diarrhea with incontinence for the past few weeks. Developed weakness on the day of presenting to the emergency room. (4) Debility 0-10 Scale: Unable to quantify Comment: Progressive. Patient has had multiple hospitalizations this year alone. Pertinent Non-Medical Issues: Psychosocial: Patient was born and raised in [place]. Patient was twice and once. She has been to her current Rell for the past 6 years. Patient has lived in [place] and [place] with her ex- . She is retired. She has 2 adult daughters Deja who resides in [place]-(estranged from her) and Jenny who currently resides with patient. 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 will bring in copies Ethical issues impacting care: None identified at this time. Important Contacts: Spouse-Rell Jay-[phone] Daughter-Jenny Mena [phone] Prognosis: Mrs. Jay is a 68-year-old female with a medical history significant for colon cancer with metastases to the lymph nodes status post colon resection and on chemotherapy, lupus, atrial fibrillation, chronic kidney disease stage III, transient ischemic attack, hypertension, anxiety, arthritis, colitis, diverticulitis, diverticulosis, hemorrhoids and inflammatory bowel disease. Patient presented to the emergency room on 10/14/18 for evaluation of weakness, and persistent diarrhea. Given patient's ongoing colon cancer with metastasis to the lymph nodes and progressive debility, patient will continue to have further complications, deterioration in decline. Patient is also mentioned that she does she no longer wants chemotherapy. If you goals are comfort oriented, patient would benefit from hospice services. Code Status: No Code DNR Plan: PLAN: Legal decision maker: Patient is alert and oriented x3. She is currently able to participate in making her own medical decisions. In the event that she is incapacitated, patient designated her spouse Rell Jay as her healthcare surrogate and her daughter Jenny Mena as her alternate healthcare surrogate. Goals: Aggressive short of no code. Patient states that she no longer wants chemotherapy and would like to try "Alkaline diet" to manage colon cancer. Hospice consult placed per patient`s request. Patient requested that her be present during the time that she signs up for hospice. Patient signed a [facility] DNR. Hard copy placed on chart and a copy faxed HIM to be added to patient`s electronic medical records. CODE STATUS: No code DNR SYMPTOMS: * Pain: Patient has history of colon adenocarcinoma with metastases to the lymph nodes and is currently on chemotherapy. She also has history of arthritis. Hydrocodone/acetaminophen 10/325 every 6 hours prn available. Patient is also on morphine sulfate ER 15 mg p.o. every 12hrs. Patient endorsing abdominal discomfort and pain in your mouth. Magic mouthwash ordered. Medication appear adequate at this time. * Anxiety: History of anxiety. Patient is on Xanax 0.5 mg p.o. twice daily. No recommendations at this time * Generalized weakness: Patient is currently on chemotherapy. She has had diarrhea for the past few weeks with incontinence. Most likely dehydrated. * Debility: Progressive. Patient has had multiple hospitalizations this year. She now requires assistance with all ADLs. Palliative care will continue to follow the patient during hospital course as condition evolves, to assist patient/decision-maker with understanding of their medical conditions, weighing benefits/burdens of treatment options, for clarification of goals of treatment. Additionally will assist with any symptoms of palliative concern Attestation Attestation: To help prompt me to consider important information that might be impacting today's encounter and assessment, information from prior notes written by myself or my colleagues may have been "brought forward" into today's note. My signature on this note, however, is an attestation that I personally performed the exam, history, and/or decision-making noted today, and, unless otherwise indicated, the interactions with patient, family, and staff as well as the review of records all occurred today. I also attest that the listed assessment and stated plan reflect my best clinical judgment today based on the combination of historical information, prior notes, and today's exam/ interactions. When time spent is documented, it refers only to time spent today by the signer, or if indicated, combined time spent today by collaborating physician/nurse practitioner.
--- NOTE | 2018-10-15 16:15 | P.PNADD ---
Addendum to Inpatient Note Reason for Addendum: Additional Documentation Additional information: Spoke with case hardener regarding hospice consult. Hospice plans to see the patient tonight. From a medical standpoint, patient is cleared for discharge/ transfer to wherever Hospice feels is appropriate. Of note, PT did recommend inpatient rehab due to her overall weakness.
[2018-10-15] MEDS ORDERED: Morphine Inj 4 MG/ML Vial IV.PUSH PRN (21:44)
[2018-10-15] MEDS ORDERED: Naloxone Inj 0.4 MG/ML Vial IV.PUSH PRN (21:44)
[2018-10-16] MEDS: Morphine Sulfate 15 MG SR Tablet PO SCH (03:06)
[2018-10-16 08:16] VITALS: RESP 20
[2018-10-16] MEDS: Famotidine 20 MG Tablet PO SCH ×2 (08:34→08:36)
[2018-10-16] MEDS: dilTIAZem CD 240 MG Capsule PO SCH (08:34)
[2018-10-16] MEDS: Nystatin/Diphenhydramine/Lidocaine Mouthwash (Adult) 120 ML Botttle SWISH-SWAL SCH (08:34)
[2018-10-16] MEDS: Estradiol 1 MG Tablet PO SCH (08:35)
[2018-10-16] MEDS: Metoclopramide 10 MG Tablet PO SCH (08:35)
[2018-10-16] MEDS: Amitriptyline 25 MG Tablet PO SCH (08:35)
[2018-10-16] MEDS: Spironolactone 25 MG Tablet PO SCH (08:47)
[2018-10-16] MEDS: Rivaroxaban 20 MG Tablet PO SCH (08:47)
--- NOTE | 2018-10-16 09:42 | XR ---
EXAM DATE: 10/16/2018 9:31 AM EST AGE/SEX: 68 years / Female INDICATIONS: Short of breath. CLINICAL DATA: This is the patient's subsequent encounter. Patient reports that signs and symptoms h ave been present for 1 week and indicates a pain score of 0/10. MEDICAL/SURGICAL HISTORY: . Carcinoma, colon. . Chemotherapy. None. COMPARISON: [facility] [place], CHEST 1V SINGLE AP, 10/14/2018. . FINDINGS: New mild platelike atelectasis in the right perihilar area. Mild atelectasis in the left lung base. Otherwise, the rest the lungs are grossly clear. The heart si ze is upper limits of normal. There is a right-sided central line in place. There is no pneumothorax. No definite pleural effusions or pulmonary edema. The bony structures are stable. CONCLUSION: New mild areas of atelectasis in the right perihilar area and left lower lung. Electronically signed by: Jcarlos Peterson MD 10/16/2018 9:40 AM EST
--- NOTE | 2018-10-16 09:59 | P.PNFP ---
Subjective Interval history: No acute events overnight. Patient was having increased work of breathing on the morning of exam. She was complaining of chest discomfort as well as increased abdominal pain. Her HR was in the 120-130's, her other vitals were stable. <Scott Guerra B - 10/16/18 13:31> Results - Labs Result diagrams: 10/16/18 10:18 10/16/18 10:18 <Hina Villela R - 10/17/18 09:50> Abnormal lab results 10/16/18 10/16/18 Range/Units 10:18 10:18 MCH 26.6 L (27.0-34.0) pg MCHC 29.7 L (32.0-36.0) % RDW 27.8 H (11.6-17.2) % Neut % (Auto) 85.5 H (16.0-70.0) % Lymph # (Auto) 0.7 L (1.0-4.8) th/mm3 Band Neuts % (Manual) 17 H (0-6) % Metamyelocytes % (Man) 3 H (0-1) % Myelocytes % (Man) 3 H (0-0) % Plasma Cell % (Manual) 1 H (0-0) % Nucleated RBCs/100 WBC 1 H (0-0) /100 WBC Toxic Granulation 2+ H (None) Platelet Morphology Enlarged H (Normal) Dimorphic RBCs Present H (None) Potassium 5.3 H D (3.5-5.1) meq/L Chloride 112 H (98-107) meq/L Carbon Dioxide 11.1 L (21.0-32.0) meq/L Anion Gap 18 H (5-15) meq/L BUN 43 H (7-18) mg/dL Creatinine 2.28 H (0.50-1.00) mg/dL Estimated GFR 21 L (>89) mL/min Random Glucose 130 H (74-106) mg/dL Calcium 8.1 L D (8.5-10.1) mg/dL Short CBC 10/16/18 Range/Units 10:18 WBC 7.3 (4.0-11.0) th/mm3 Hgb 12.4 (11.6-15.3) gm/dL Hct 41.7 (35.0-46.0) % Plt Count 282 (150-450) th/mm3 [facility] 10/16/18 10:18 Sodium 141 Potassium 5.3 H D Chloride 112 H Carbon Dioxide 11.1 L BUN 43 H Creatinine 2.28 H Calcium 8.1 L D <ManoharHina R - 10/17/18 09:50> Abnormal lab results 10/15/18 Range/Units 13:25 Potassium 3.2 L D (3.5-5.1) meq/L [facility] 10/15/18 13:25 Potassium 3.2 L D <Scott Guerra - 10/16/18 09:58> - Imaging Impressions Chest X-Ray 10/16/18 08:43 CONCLUSION: New mild areas of atelectasis in the right perihilar area and left lower lung. <Scott Guerra - 10/16/18 09:58> Physical Exam Vital signs: Vital Signs 10/16/18 11:18 10/16/18 12:00 Temperature 97.9 F Pulse Rate 60 Respiratory Rate 20 20 Blood Pressure 114/59 L Pulse Oximetry 99 <Hina Villela R - 10/17/18 09:50> Vital Signs 10/15/18 12:00 10/15/18 16:00 10/15/18 20:00 Temperature 98.1 F 97.9 F 98 F Pulse Rate 85 90 95 H Respiratory Rate 18 20 18 Blood Pressure 110/73 112/80 134/92 H Pulse Oximetry 92 L 90 L 91 L 10/16/18 00:00 10/16/18 04:00 10/16/18 08:00 Temperature 98.1 F 97.9 F 97.8 F Pulse Rate 88 117 H 129 H Respiratory Rate 18 18 20 Blood Pressure 132/87 116/88 123/85 Pulse Oximetry 92 L 91 L 91 L Intake & Output 10/15/18 10/16/18 10/16/18 18:59 06:59 18:59 Intake Total 1999 1000 / 1000 Balance 1999 1000 / 1000 Weight 96.9 kg Intake: IV 1999 1000 / 1000 NS + KCl 20 mEq Inj 1,000 ML @ 1000 / 1000 1000 / 1000 100 mls/hr IV.CONT .Q10H MICHELLE Rx #:[id number] NS Inj 1,000 ML @ 125 mls/hr IV 1000 / 1000 .CONT .Q8H MICHELLE Rx#:[id number] Other: # Voids 2 7 <Scott Guerra B - 10/16/18 09:58> Narrative: GENERAL: Elderly female, lying in bed with increased WOB. Only able to answer questions with one word answers. Answered questions appropriately SKIN: Warm and dry. HEAD: Normocephalic. EYES: No scleral icterus. No injection or drainage. NECK: Supple, trachea midline. No JVD or lymphadenopathy. CARDIOVASCULAR: Elevated rate to the 120's and rhythm without murmurs, gallops, or rubs. RESPIRATORY: Abdominal breathing noted. Patient has diffuse, audible rales. GASTROINTESTINAL: Abdomen soft, tenderness to palpation diffusely. Bowel sounds present. MUSCULOSKELETAL: No cyanosis, or edema. BACK: Nontender without obvious deformity. No CVA tenderness. NEURO: Mental status: patient is alert, awake CN: 2-12 grossly intact <Scott Guerra B - 10/16/18 13:31> Assessment and Plan - Assessment (1) Weakness Code(s): R53.1 - Weakness Status: Acute Plan: Acute weakness of the quadriceps bilaterally and shoulder girdles while in the shower on morning of admission. History of diarrhea with incontinence that started on 10/09. Currently on Macrobid for UTI treatment. DDX: Dehydration versus polypharmacy versus polymyositis versus vasovagal syncope versus Afib versus electrolyte abnormalities versus overall decline secondary to her chronic medical conditions. -She confirms not adequately hydrating. Clinically improved with 1 L bolus in the ED. Continue on maintenance fluids. -PMH of lupus. -CMP unremarkable for electrolyte abnormalities on admission. Found to be hypokalemic on day 2 of hospitalization -Palliative care was consulted on admission and patient per their records elected to go on hospice and does not desire any further chemotherapy. -On 10/16 Patient appeared to be in significant decline from prior exams (2) Shortness of breath Code(s): R06.02 - Shortness of breath Status: Acute Plan: patient had significant SOB on the morning of 10/16. Audible Rales -40 mEq of lasix IV was ordered. IVF discontinued -CXR, EKG ordered. CXR showed new mild atelectasis. EKG showed sinus tachycardia -concern for overall decline -Ordered CBC, BMP (3) Bandemia Code(s): D72.825 - Bandemia Status: Acute Plan: Patient with a white count of 8.9, though normal this may be masked by her chemotherapy. Increase in bands differential from 19-39 on day 2 of hospitalization CXRay Negative. UA shows moderate bacteria. On Macrobid. Cultures with mixed subhash No further signs of infection clinically Suspect abnormal CBC to be secondary to her recent chemo treatment versus overall progression of her malignancy Palliative care consulted and subsequently consulted hospice (4) Diarrhea Code(s): R19.7 - Diarrhea, unspecified Status: Acute Plan: Diarrhea that started on 10/08 with incontinence. Unable to rehydrate appropriately. Mild LLQ pain. -Unsure if this is a complication from her previous colon surgeries vs infectious etiology from being immunosuppressed versus side effect of chemotherapy. -C. difficile ordered. -Hemoccult ordered. Stool cultures ordered. -Patient states her diarrhea is improved on day 2 of hospitalization, has been on Imodium at home Imodium restarted on hospital day 2 (5) UTI (urinary tract infection) Code(s): N39.0 - Urinary tract infection, site not specified Status: Acute Plan: Patient admitted to [place] on 10/06 was diagnosed with UTI and started on Levaquin 250 mg every 48 for 2 days. Discharged home on Macrobid for 5 days. -On last dose of Macrobid on day of admission -Urine cultures ordered. If positive will consider starting on Levaquin. (6) Polypharmacy Code(s): Z79.899 - Other intermodal dispatcher (current) drug therapy Status: Acute Plan: Patient on multiple sedating drugs. Continue to monitor. (7) Migraine Code(s): G43.909 - Migraine, unspecified, not intractable, without status migrainosus Status: Acute Plan: Continue home amitriptyline. Sumatriptan as needed. (8) Colon adenocarcinoma Code(s): C18.9 - Malignant neoplasm of colon, unspecified Status: Acute Plan: Sees Dr. Estrella for chemotherapy. Patient has expressed that she no longer desires chemotherapy and is electing to go on hospice (9) Afib Code(s): I48.91 - Unspecified atrial fibrillation Status: Acute Plan: Continue diltiazem. Continue Xarelto. (10) Panic attack Code(s): F41.0 - Panic disorder [episodic paroxysmal anxiety] Status: Acute Plan: Continue Home Xanax as needed. (11) Muscle spasm Code(s): M62.838 - Other muscle spasm Status: Acute Plan: continue home tizanidine. (12) Arthritis Code(s): M19.90 - Unspecified osteoarthritis, unspecified site Status: Acute Plan: Continue home hydrocodone and morphine (13) CKD (chronic kidney disease) stage 3, GFR 30-59 ml/min Code(s): N18.3 - Chronic kidney disease, stage 3 (moderate) Status: Acute Plan: Cr: 1.91, improved to 1.38 1 Bolus NS given in ED Cont on Maintenance Fluids (14) DVT prophylaxis Status: Acute Plan: On Xarelto (15) Nutrition, metabolism, and development symptoms Code(s): R63.8 - Other symptoms and signs concerning food and fluid intake Status: Acute Plan: Fluids: Discontinued IVF Electrolytes: Hypokalemia noted on day 2 of hospitalization with a potassium of 2.4, replaced with 40 mEq p.o. and added 20 mEq were IV fluids, repeat potassium increased to 3.2 Diet: Regular. Code: DNR <Scott Guerra B - 10/16/18 13:17> - Assessment and Plan 68-year-old female with multiple medical conditions including adenocarcinoma of the colon, A. fib, hypertension, lupus, CKD stage III presented to the emergency room with complaints of weakness. Found to have bandemia on initial CBC and was admitted for further workup. Initial infectious workup was otherwise negative and patient was started on IV fluids as she was suspected to be dehydrated secondary to diarrhea. Patient symptomatically improved on day 2 of hospitalization. Palliative care was consulted on admission and subsequently consulted Hospice. On hospital day 3, she clinically worsened significantly and was in respiratory distress. CXR, EKG ordered, Lasix given and IVF stopped <Soctt Guerra B - 10/16/18 13:31> - Attending Attestation Patient discussed with resident team. Agree with assessment and plan. <Hina Villela - 10/17/18 09:50>
[2018-10-16 10:51] LABS: Baso % (Auto) 0.2 % (0.0-2.0); Eos % (Auto) 0.1 % (0.0-4.0); Hematocrit 41.7 % (35.0-46.0); Hemoglobin 12.4 gm/dL (11.6-15.3); Lymph # (Auto) 0.7 th/mm3 (1.0-4.8); Lymph % (Auto) 9.1 % (9.0-44.0); Mean Corpuscular HGB Conc 29.7 % (32.0-36.0); Mean Corpuscular Hemoglobin 26.6 pg (27.0-34.0); Mean Corpuscular Volume 89.6 fL (80.0-100.0); Mean Platelet Volume 9.1 fL (7.0-11.0); Mono # (Auto) 0.4 th/mm3 (0.0-0.9); Mono % (Auto) 5.1 % (0.0-8.0); Neut # (Auto) 6.2 th/mm3 (1.8-7.7); Neut % (Auto) 85.5 % (16.0-70.0); Platelet Count 282 th/mm3 (150-450); Red Blood Count 4.65 mil/mm3 (4.00-5.30); Red Cell Distribution Width 27.8 % (11.6-17.2); White Blood Count 7.3 th/mm3 (4.0-11.0)
[2018-10-16 11:17] LABS: Calcium 8.1 mg/dL (8.5-10.1); Carbon Dioxide 11.1 meq/L (21.0-32.0); Potassium 5.3 meq/L (3.5-5.1)
[2018-10-16 11:29] LABS: Lymphocytes 14 % (9-44); Metamyelocytes 3 % (0-1); Monocytes 3 % (0-8); Myelocytes 3 % (0-0); Plasma Cells 1 % (0-0); Tallied Nucleated RBC 1 (0-0); Toxic Granulation 2+
[2018-10-16 11:31] LABS: Dimorphic RBC Present; Platelet Estimate Normal (Normal)
--- NOTE | 2018-10-16 12:40 | P.DN ---
<Scott Guerra - Last Filed: 10/16/18 14:14> - Provider Primary care physician: Jase Dhillon DO Consults: 10/14/18 16:22 Consult to Palliative Care Routine Consulting Provider: Alexander Schneider Reason for Consultation: Chemotherapy patient who wants comfort care. Notified:: Service Spoke with:: KENDRICK Date Notified:: 10/14/18 Time Notified:: 16:24 Ordering Provider: SONY Pronounyandel clinician: Scott Guerra - Admitting Diagnosis (1) Afib (2) Bandemia (3) CKD (chronic kidney disease) stage 3, GFR 30-59 ml/min (4) Diarrhea (5) Weakness (6) Colon adenocarcinoma - Diagnosis at Time of (1) Metastatic colon cancer in female Diagnosis: Principal (2) Respiratory failure Diagnosis: Secondary - Date and Time Date of admission: 10/14/18 11:39 Date of : 10/16/18 Time of : 12:10 - Summary Details: 68-year-old female with multiple medical conditions including adenocarcinoma of the colon, A. fib, hypertension, lupus, CKD stage III presented to the emergency room with complaints of weakness. Found to have bandemia on initial CBC and was admitted for further workup. Initial infectious workup was otherwise negative and patient was started on IV fluids as she was suspected to be dehydrated secondary to diarrhea. Patient symptomatically improved on day 2 of hospitalization. Palliative care was consulted on admission and she signed a DNR and subsequently Hospice was consulted. On hospital day 3, she clinically worsened significantly and was in respiratory distress. CXR, EKG ordered, Lasix given and IVF were stopped. Her CXR showed new mild atelectasis. EKG showed sinus tachycardia. She continued to decline clinically and ultimately became unresponsive. Patient was evaluated at bedside and did not respond to sternal rub, verbal commands. Due to her DNR status, it was decided that she would not undergo any further treatment and be allowed to pass. Shortly thereafter she went into asystole. Exam at time of : Patient did not respond to verbal cues Did not respond to sternal rub, nail bed pressure No heart sounds were auscultated, no radial pulse or carotid pulse were palpable Unable to illicit a corneal reflex patient was pronounce at 1210 PM on 10/16/18 Brief History: 68 year old female presents with an episode of weakness. She has had episodes of diarrhea ( nonbloody, mucuousy) since 10/08 and has been trying to drink adequate fluids to keep up with her diarrhea. She has diarrhea every time she stands up. Incontinent and has no control of her bowel moments. This morning she was going to her doctors appointment at PCP (Dr. Tracy Arias) for follow -up of her recent Ed visit for weakness (10/09). She felt weak when trying to get into the shower. She sat on her shower chair and felt her legs become weak and was unable to move them. She tried to get out of the shower and was unable to get out of the chair. The more she tried, the leg pain would get worse. Located in her quadriceps, and developed pain in shoulder blades bilaterally. The pain felt like intense sharp pains. Rated it a 12/10 in severity. The more she tried to get up, the more it caused the pain. She was also in and out of consciousness, and felt as though she was going to pass out. Her then called the ambulance and she was brought here for further evaluation. [facility] personnel had to lift her into the ambulance. She is currently being treated for UTI and confirms not eating and hydrating adequately. She also complains of some mild LLQ pain and blurry vision. PMH: Afib (Loop recorder placed and had alarms: one Thursday night and twice Thursday night. ), TIA x3, HTN, Lupus, CKD 3, Colon Cancer diagnosed July 09. Last chemo on Sep 28. Migraines, Panic Attacks, GERD. PSH: Colon cancer (removed partially in June) , appendectomy, hernia repair ( 2008), cholecystectomy, Left and R Knee replacement. Shoulder surgery, hysterectomy ( been on Estradiol since her 40s). A: See above. Multiple. Severe allergy to Rocephin (vomiting). Unsure about allergies to Latex. Meds: Reglan, Estradiol, [place], Last Chemo ., Amitriptyline, Xanax. Macrobid ( last day, missed morning dose today). Social Hx: Lives at home with , never smoked, no alcohol use, no street drugs. Family Hx: GF on father's side had colon cancer. Dad of aortic aneurysm rupture in 50s. HBP in Mom and Dad. Did not get flu shot. No recent sick contacts. No recent travel. ROS: Denies, CP, SOB, headaches, fevers, cough, sore throat. Result Diagrams: 10/16/18 10:18 10/16/18 10:18 Significant Findings: Abnormal Lab Results 10/15/18 10/16/18 10/16/18 13:25 10:18 10:18 WBC 7.3 RBC 4.65 Hgb 12.4 Hct 41.7 MCV 89.6 D MCH 26.6 L MCHC 29.7 L RDW 27.8 H Plt Count 282 MPV 9.1 Prelim Diff (Auto) Slide review pending Neut % (Auto) 85.5 H Lymph % (Auto) 9.1 Carson % (Auto) 5.1 Eos % (Auto) 0.1 Baso % (Auto) 0.2 Neut # (Auto) 6.2 Lymph # (Auto) 0.7 L Carson # (Auto) 0.4 Eos # (Auto) 0.0 Baso # (Auto) 0.0 WBC Differential Manual diff final Seg Neuts % (Manual) 59 Band Neuts % (Manual) 17 H Lymphocytes % (Manual) 14 Monocytes % (Manual) 3 Metamyelocytes % (Man) 3 H Myelocytes % (Man) 3 H Plasma Cell % (Manual) 1 H Abs Neuts (Manual) 6.0 Nucleated RBCs/100 WBC 1 H Differential Comment . Toxic Granulation 2+ H Platelet Estimate Normal Platelet Morphology Enlarged H Dimorphic RBCs Present H Sodium 141 Potassium 3.2 L D 5.3 H D Chloride 112 H Carbon Dioxide 11.1 L Anion Gap 18 H BUN 43 H Creatinine 2.28 H Estimated GFR 21 L Random Glucose 130 H Calcium 8.1 L D <Hina Pavon - Last Filed: 10/17/18 09:56> - Provider Primary care physician: Jase Dhillon DO Consults: 10/14/18 16:22 Consult to Palliative Care Routine Consulting Provider: Alexander Schneider Reason for Consultation: Chemotherapy patient who wants comfort care. Notified:: Service Spoke with:: KENDRICK Date Notified:: 10/14/18 Time Notified:: 16:24 Ordering Provider: SONY - Date and Time Date of admission: 10/14/18 11:39 - Summary Details: Agree with above except that patient verbally reported DNI/DNR status to admitting physicians and she has been DNR/DNI since day of admission. Result Diagrams: 10/16/18 10:18 10/16/18 10:18 Significant Findings: Abnormal Lab Results 10/16/18 10/16/18 10:18 10:18 WBC 7.3 RBC 4.65 Hgb 12.4 Hct 41.7 MCV 89.6 D MCH 26.6 L MCHC 29.7 L RDW 27.8 H Plt Count 282 MPV 9.1 Prelim Diff (Auto) Slide review pending Neut % (Auto) 85.5 H Lymph % (Auto) 9.1 Carson % (Auto) 5.1 Eos % (Auto) 0.1 Baso % (Auto) 0.2 Neut # (Auto) 6.2 Lymph # (Auto) 0.7 L Carson # (Auto) 0.4 Eos # (Auto) 0.0 Baso # (Auto) 0.0 WBC Differential Manual diff final Seg Neuts % (Manual) 59 Band Neuts % (Manual) 17 H Lymphocytes % (Manual) 14 Monocytes % (Manual) 3 Metamyelocytes % (Man) 3 H Myelocytes % (Man) 3 H Plasma Cell % (Manual) 1 H Abs Neuts (Manual) 6.0 Nucleated RBCs/100 WBC 1 H Differential Comment . Toxic Granulation 2+ H Platelet Estimate Normal Platelet Morphology Enlarged H Dimorphic RBCs Present H Sodium 141 Potassium 5.3 H D Chloride 112 H Carbon Dioxide 11.1 L Anion Gap 18 H BUN 43 H Creatinine 2.28 H Estimated GFR 21 L Random Glucose 130 H Calcium 8.1 L D - Additional Data Confirmation of as documented by pronouncing clinician: no respirations, no heart sounds, pupils fixed and dilated Family: contacted Attending/PCP notified?: Yes Attending physician: Hina Pavon MD Was code activated?: No (Patient was DNR/DNI) Advance directives: Yes (Patient reported verbally to admissing physician on the day of admission that she was DNI/DNR.) Hospice patient?: Yes
[2018-10-16 13:13] VITALS: BP 114/59; PULSE 60; TEMP 97.9; O2SAT 99
--- NOTE | 2018-10-16 14:13 | ECG ---
Date Performed: 10/16/2018 Time Performed: 09:07:53 PTAGE: 68 years EKG: SINUS TACHYCARDIA MARKED LEFT AXIS DEVIATION PATTERN CONSISTENT WITH PULMONARY DISEASE NONS PECIFIC ST & T-WAVE ABNORMALITY ABNORMAL ECG PREVIOUS TRACING : 06/09/2018 08.10 Compared to previous tracing, sinus tachycardia is new with loss of R-waves in V2,3,4,5 and 6. Clinical correlation is recommended DOCTOR: Esteban Bolanos Interpretating Date/Time 10/16/2018 14:11:41
--- NOTE | 2018-10-18 09:58 | P.PNADD ---
Addendum to Inpatient Note Additional information: Paged sent out to resident on 10/14 at around 3:00 PM from nurse who stated that patient wanted to speak to someone about comfort care. Due to the admitting day, the admission orders automatically placed Mrs Jay as full code but the patient was never asked about her wishes. Resident responded to page and went to the patient's room and had a discussion about her wishes moving forward. Patient explained that she had a DNR/DNI request for months before and that she did not want to have any interventions. She requested to talk to palliative care about comfort care moving forward. Her wishes were respected and her code status was respectfully changed from the default orders. Palliative care was then consulted to provide comfort care for the patient.
== END 2018-10-16 16:08 | disposition expired ==
LOC: NEPE 07:57 → NEDA 11:39 → INTOOBSV 11:39 → NEDA 14:41 → N05 15:32
PROVIDERS: ADMIT Family Medicine; ATTEND Family Medicine